=== PATIENT | female | born 1960 | race Asian ===

== ENCOUNTER 2016-11-09 06:44 | Inpatient (IN) | payer MEDICARE, MEDICAID ==
[~2016-11-09] VITALS: Ht 152.4 cm; Wt 76.2 kg
[2016-11-09] VITALS (25 sets, daily range): BP systolic 88–125; BP diastolic 43–81
[2016-11-09] MEDS ORDERED: NS 250 ML IV ONE (06:47)
[2016-11-09] MEDS ORDERED: PLAVIX75 MG ORAL ×2 (06:54→13:41)
[2016-11-09] MEDS ORDERED: ATORVASTATIN CA20 MG ORAL (06:54)
[2016-11-09] MEDS ORDERED: SENSIPAR30 MG ORAL ×2 (06:54→13:41)
[2016-11-09] MEDS ORDERED: RENVELA800 MG ORAL (06:54)
[2016-11-09] MEDS ORDERED: CARVEDILOL3.125 MG ORAL (06:54)
[2016-11-09] MEDS ORDERED: HUMALOG100 UNIT/4 SUBQ ×2 (06:54→13:41)
[2016-11-09] MEDS ORDERED: METOPROLOL TAR100 M1 ORAL (06:54)
[2016-11-09] MEDS ORDERED: NEXIUM40 MG ORAL ×2 (06:54→13:41)
[2016-11-09] MEDS ORDERED: AMBIEN10 M1 ORAL ×2 (06:54→13:41)
[2016-11-09] MEDS ORDERED: LYRICA75 M1 ORAL (06:54)
[2016-11-09] MEDS ORDERED: ASPIRIN81 MG ORAL (06:54)
[2016-11-09] MEDS ORDERED: STARLIX120 MG ORAL ×2 (06:54→13:41)
[2016-11-09] MEDS ORDERED: Morphine Sulfate 2mg/ml Inj IVP ONE ×2 (07:00→08:00)
[2016-11-09 07:38] LABS: MEAN CORPUSCULAR HEMOGLOBIN 32.4 PG (27.0-31.0); MEAN CORPUSCULAR HGB CONC 33.7 G/DL (32.0-36.0); MEAN CORPUSCULAR VOLUME 96 FL (80-99); MEAN PLATELET VOLUME 7.8 FL (6.5-10.1); PLATELET COUNT 125 K/UL (150-450); RED BLOOD COUNT 2.21 M/UL (4.20-5.40); RED CELL DISTRIBUTION WIDTH 13.4 % (11.6-14.8); WHITE BLOOD COUNT 7.9 K/UL (4.8-10.8)
[2016-11-09 07:45] LABS: ALBUMIN/GLOBULIN RATIO 1.5 (1.0-2.7); CALCIUM 8.2 mg/dL (8.6-10.2); CREATININE 4.2 mg/dL (0.5-0.9); GLOMERULAR FILTRATION RATE 10.9 mL/min (>60); POTASSIUM 3.8 mEQ/L (3.4-4.9); TOTAL PROTEIN 5.8 g/dL (6.6-8.7); TROPONIN I < 0.30 ng/mL (<=0.30)
[2016-11-09 07:56] LABS: CKMB 3.3 ng/mL (< 3.8)
[2016-11-09 08:09] LABS: BAND NEUTROPHILS % (MANUAL) 0 % (0-8); BASOPHILS % (MANUAL) 1 % (0-2); EOSINOPHILS % (MANUAL) 1 % (0-3); HYPOCHROMASIA 3+; LYMPHOCYTES % (MANUAL) 24 % (20-45); METAMYELOCYTES % 2 % (0-0); NEUTROPHILS % (MANUAL) 68 % (45-75); PLATELET ESTIMATE DECREASED; SPHEROCYTES 2+; TOTAL CELLS COUNTED 100
[2016-11-09 08:10] LABS: ANISOCYTOSIS 1+; PLATELET MORPHOLOGY NORMAL
[2016-11-09 08:28] LABS: INR 1.1 (0.9-1.1)
--- NOTE | 2016-11-09 08:29 | Emergency Room Report ---
History of Present Illness General Chief Complaint: Chest Pain Source: Patient, EMS Present Illness HPI 56-year-old female presents ED complaining of chest pain. Patient states chest pain started today during dialysis session. Patient was unable to complete dialysis. Pain is pressure-like, midsternal, 7/10, nonradiating. No other aggravating or relieving factors. Denies shortness of breath. Patient was given aspirin. EMS states they did not give nitroglycerin because BP was low. Gave IV fluid bolus. Denies fevers or chills. No other aggravating or leading factors. Denies any other associated symptoms Allergies: Coded Allergies: No Known Allergies (Unverified , 11/09/16) Patient History Past Medical History: DM, HTN, renal disease, dialysis Past Surgical History: none Pertinent Family History: none Social History: Denies: alcohol use, drug use, smoking Now: No Immunizations: UTD Reviewed Nursing Documentation: PMH: Agreed, PSxH: Agreed Nursing Documentation-PMH Hx Hypertension: Yes Hx Pacemaker: Yes Hx Diabetes: Yes Hx Dialysis: Yes - [id number] Review of Systems All Other Systems: negative except mentioned in HPI Physical Exam Vital Signs Date Time Temp Pulse Resp B/P Pulse Ox O2 Delivery O2 Flow Rate FiO2 11/09/16 06:40 97.2 83 16 88/59 100 Room Air 11/09/16 06:50 2.0 Sp02 EP Interpretation: reviewed, normal General Appearance: no apparent distress, alert, GCS 15, non-toxic Head: normocephalic, atraumatic Eyes: bilateral eye PERRL, bilateral eye normal inspection ENT: hearing grossly normal, normal pharynx, no angioedema, normal voice Neck: full range of motion, supple/symm/no masses Respiratory: chest non-tender, lungs clear, normal breath sounds, speaking full sentences Cardiovascular #1: regular rate, rhythm, no edema Cardiovascular #2: 2+ carotid (R), 2+ carotid (L), 2+ radial (R), 2+ radial (L) , 2+ dorsalis pedis (R), 2+ dorsalis pedis (L) Gastrointestinal: normal bowel sounds, non tender, soft, non-distended, no guarding, no rebound Rectal: deferred Genitourinary: normal inspection, no CVA tenderness Musculoskeletal: back normal, gait/station normal, normal range of motion, non- tender Neurologic: alert, oriented x3, responsive, motor strength/tone normal, sensory intact, speech normal Psychiatric: judgement/insight normal, memory normal, mood/affect normal, no suicidal/homicidal ideation Reflexes: 3+ bicep (R), 3+ bicep (L), 3+ tricep (R), 3+ tricep (L), 3+ knee (R) , 3+ knee (L) Skin: normal color, no rash, warm/dry, well hydrated Lymphatic: no adenopathy Medical Decision Making Diagnostic Impression: Primary Impression: ACS (acute coronary syndrome) Additional Impressions: ESRD (end stage renal disease) on dialysis Anemia Qualified Codes: D64.9 - Anemia, unspecified Labs Test 11/09/16 07:00 11/09/16 07:55 White Blood Count 7.9 K/UL (4.8-10.8) Red Blood Count 2.21 M/UL (4.20-5.40) Hemoglobin 7.2 G/DL (12.0-16.0) Hematocrit 21.2 % (37.0-47.0) Mean Corpuscular Volume 96 FL (80-99) Mean Corpuscular Hemoglobin 32.4 PG (27.0-31.0) Mean Corpuscular Hemoglobin Concent 33.7 G/DL (32.0-36.0) Red Cell Distribution Width 13.4 % (11.6-14.8) Platelet Count 125 K/UL (150-450) Mean Platelet Volume 7.8 FL (6.5-10.1) Neutrophils (%) (Auto) % (45.0-75.0) Lymphocytes (%) (Auto) % (20.0-45.0) Monocytes (%) (Auto) % (1.0-10.0) Eosinophils (%) (Auto) % (0.0-3.0) Basophils (%) (Auto) % (0.0-2.0) Differential Total Cells Counted 100 Neutrophils % (Manual) 68 % (45-75) Lymphocytes % (Manual) 24 % (20-45) Monocytes % (Manual) 4 % (1-10) Eosinophils % (Manual) 1 % (0-3) Basophils % (Manual) 1 % (0-2) Metamyelocytes % 2 % (0-0) Band Neutrophils 0 % (0-8) Platelet Estimate Decreased Platelet Morphology Normal Hypochromasia 3+ Anisocytosis 1+ Spherocytes 2+ Sodium Level 138 mEQ/L (135-145) Potassium Level 3.8 mEQ/L (3.4-4.9) Chloride Level 96 mEQ/L (98-107) Carbon Dioxide Level 23 mEQ/L (20-30) Anion Gap 19 (5-15) Blood Urea Nitrogen 80 mg/dL (7-23) Creatinine 4.2 mg/dL (0.5-0.9) Estimat Glomerular Filtration Rate 10.9 mL/min (>60) Glucose Level 207 mg/dL (74-106) Calcium Level 8.2 mg/dL (8.6-10.2) Total Bilirubin 0.5 mg/dL (0.0-1.2) Aspartate Amino Transf (AST/SGOT) 14 U/L (5-40) Alanine Aminotransferase (ALT/SGPT) 5 U/L (3-33) Alkaline Phosphatase 70 U/L (35-104) Total Creatine Kinase 76 U/L (26-140) Creatine Kinase MB 3.3 ng/mL (< 3.8) Creatine Kinase MB Relative Index 4.3 Troponin I < 0.30 ng/mL (<=0.30) Pro-B-Type Natriuretic Peptide 6173 pg/mL (0-125) Total Protein 5.8 g/dL (6.6-8.7) Albumin 3.5 g/dL (3.5-5.2) Globulin 2.3 g/dL Albumin/Globulin Ratio 1.5 (1.0-2.7) EKG Diagnostic Results Rate: normal Rhythm: other - paced rhythm ST Segments: no acute changes ASA given to the pt in ED: No - given by ms Rhythm Strip Diag. Results EP Interpretation: yes Rhythm: NSR, no PVC's, no ectopy Chest X-Ray Diagnostic Results EP Interpretation: Yes Findings: no pneumothorax, no acute cardiopulmonary disease, other - cardiomegaly.pulmonary congestion. pacemaker Number of Views: 1 Last Vital Signs Date Time Temp Pulse Resp B/P Pulse Ox O2 Delivery O2 Flow Rate FiO2 11/09/16 06:50 89 21 Nasal Cannula 2.0 11/09/16 06:44 97.2 88/59 100 Status: improved Disposition: ADMITTED INPATIENT Condition: Serious [place],SARAH M.D. Nov 09, 2016 08:29
[2016-11-09] MEDS ORDERED: Morphine Sulfate 4mg/ml Inj ONE (09:26)
--- NOTE | 2016-11-09 09:29 | Diagnostic Imaging Report ---
Indication: Chest pain Technique: One view of the chest Comparison: none Findings: There is a left chest pacemaker. There is evidence of prior CABG. The heart is mildly enlarged. There is borderline interstitial congestion. Impression: Borderline interstitial congestive changes. Correlate with clinical findings Cardiomegaly Postsurgical changes as described
[2016-11-09] MEDS ORDERED: Morphine Sulfate 4mg/ml Inj IVP ONE (09:30)
[2016-11-09] MEDS ORDERED: Miralax 17gm pkt ORAL PRN (10:15)
[2016-11-09] MEDS ORDERED: Zolpidem 5mg tab ORAL PRN (10:15)
[2016-11-09] MEDS ORDERED: Mylanta II UD 30ml ORAL PRN (10:15)
[2016-11-09] MEDS ORDERED: DuoNeb 0.5-3(2.5)mg/3ml neb HHN PRN (10:15)
[2016-11-09] MEDS ORDERED: Pantoprazole Inj IV ONE (11:15)
[2016-11-09] MEDS: Lyrica 75mg cap ORAL SCH ×2 (13:33→21:29)
[2016-11-09] MEDS ORDERED: ISOSORBIDE DINI20 M2 PO (13:41)
[2016-11-09] MEDS ORDERED: RENVELA0.8 GM ORAL (13:41)
[2016-11-09] MEDS: NovoLOG Insulin Flexpen SUBQ SCH ×3 (16:30→21:40)
--- NOTE | 2016-11-09 17:05 | Consultation ---
Consult Note Consult Note asked to eval for dialysis management- Chief Complaint: Chest Pain HPI 56-year-old female presents ED complaining of chest pain. Patient states chest pain started today during dialysis session. Patient was unable to complete dialysis. Pain is pressure-like, midsternal, 7/10, nonradiating. No other aggravating or relieving factors. Denies shortness of breath. Patient was given aspirin. EMS states they did not give nitroglycerin because BP was low. Gave IV fluid bolus. Denies fevers or chills. No other aggravating or leading factors. 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 HD as needed per orders OMARI BLOCK Nov 09, 2016 17:05
--- NOTE | 2016-11-09 18:47 | Cardiology Progress Note ---
Assessment/Plan Assessment/Plan chest pain esrd hs of tx now on hd cad s/p cabg unkown timing anemia pacmeker implatation hx obesity serial enzyme ekg saas satn bb echo [id number] Objective Last 24 Hour Vital Signs Date Time Temp Pulse Resp B/P Pulse Ox O2 Delivery O2 Flow Rate FiO2 11/09/16 18:01 97.3 77 14 125/58 100 Nasal Cannula 2.0 11/09/16 15:10 97.3 79 14 105/56 100 Nasal Cannula 2.0 11/09/16 14:50 97.3 80 12 104/57 100 Nasal Cannula 2.0 11/09/16 14:32 97.3 11/09/16 14:20 97.3 79 15 93/53 100 Nasal Cannula 2.0 11/09/16 13:50 97.4 81 15 109/61 100 Nasal Cannula 2.0 11/09/16 13:35 97.4 79 16 110/53 100 Nasal Cannula 2.0 11/09/16 13:20 97.4 79 15 108/47 100 Nasal Cannula 2.0 11/09/16 13:05 97.4 78 17 112/52 99 Nasal Cannula 2.0 11/09/16 13:00 97.3 78 20 108/64 100 Nasal Cannula 2.0 11/09/16 12:55 97.4 79 16 104/81 100 Nasal Cannula 2.0 11/09/16 12:50 97.3 79 16 107/60 100 Nasal Cannula 2.0 11/09/16 12:30 97.4 79 19 112/52 100 Nasal Cannula 2.0 11/09/16 12:00 97.3 79 18 107/60 100 Nasal Cannula 2.0 11/09/16 11:30 97.3 80 20 102/66 100 Nasal Cannula 2.0 11/09/16 11:00 97.3 82 20 116/66 100 Nasal Cannula 2.0 11/09/16 11:00 97.3 11/09/16 10:30 97.3 82 22 125/62 100 Nasal Cannula 2.0 11/09/16 10:15 97.1 83 20 109/73 100 Nasal Cannula 2.0 11/09/16 10:00 97.0 83 20 11/09/16 10:00 97.0 83 20 105/43 100 Nasal Cannula 2.0 11/09/16 09:55 97.3 81 20 99/56 100 Nasal Cannula 2.0 11/09/16 09:50 97.5 83 20 107/57 100 Nasal Cannula 2.0 11/09/16 09:45 97.7 83 17 104/66 100 Nasal Cannula 2.0 11/09/16 08:50 97.2 11/09/16 08:50 97.2 11/09/16 07:20 83 17 Nasal Cannula 2.0 11/09/16 07:20 97.3 83 17 97/63 100 Nasal Cannula 2.0 11/09/16 06:50 89 21 Nasal Cannula 2.0 11/09/16 06:44 97.2 89 21 88/59 100 Room Air 11/09/16 06:40 97.2 83 16 88/59 100 Room Air Laboratory Tests Test 11/09/16 07:00 11/09/16 07:55 White Blood Count 7.9 K/UL (4.8-10.8) Red Blood Count 2.21 M/UL (4.20-5.40) L Hemoglobin 7.2 G/DL (12.0-16.0) L Hematocrit 21.2 % (37.0-47.0) L Mean Corpuscular Volume 96 FL (80-99) Mean Corpuscular Hemoglobin 32.4 PG (27.0-31.0) H Mean Corpuscular Hemoglobin Concent 33.7 G/DL (32.0-36.0) Red Cell Distribution Width 13.4 % (11.6-14.8) Platelet Count 125 K/UL (150-450) L Mean Platelet Volume 7.8 FL (6.5-10.1) Neutrophils (%) (Auto) % (45.0-75.0) Lymphocytes (%) (Auto) % (20.0-45.0) Monocytes (%) (Auto) % (1.0-10.0) Eosinophils (%) (Auto) % (0.0-3.0) Basophils (%) (Auto) % (0.0-2.0) Differential Total Cells Counted 100 Neutrophils % (Manual) 68 % (45-75) Lymphocytes % (Manual) 24 % (20-45) Monocytes % (Manual) 4 % (1-10) Eosinophils % (Manual) 1 % (0-3) Basophils % (Manual) 1 % (0-2) Metamyelocytes % 2 % (0-0) H Band Neutrophils 0 % (0-8) Platelet Estimate Decreased L Platelet Morphology Normal Hypochromasia 3+ Anisocytosis 1+ Spherocytes 2+ Sodium Level 138 mEQ/L (135-145) Potassium Level 3.8 mEQ/L (3.4-4.9) Chloride Level 96 mEQ/L (98-107) L Carbon Dioxide Level 23 mEQ/L (20-30) Anion Gap 19 (5-15) H Blood Urea Nitrogen 80 mg/dL (7-23) H Creatinine 4.2 mg/dL (0.5-0.9) H Estimat Glomerular Filtration Rate 10.9 mL/min (>60) Glucose Level 207 mg/dL (74-106) H Calcium Level 8.2 mg/dL (8.6-10.2) L Total Bilirubin 0.5 mg/dL (0.0-1.2) Aspartate Amino Transf (AST/SGOT) 14 U/L (5-40) Alanine Aminotransferase (ALT/SGPT) 5 U/L (3-33) Alkaline Phosphatase 70 U/L (35-104) Total Creatine Kinase 76 U/L (26-140) Creatine Kinase MB 3.3 ng/mL (< 3.8) Creatine Kinase MB Relative Index 4.3 Troponin I < 0.30 ng/mL (<=0.30) Pro-B-Type Natriuretic Peptide 6173 pg/mL (0-125) H Total Protein 5.8 g/dL (6.6-8.7) L Albumin 3.5 g/dL (3.5-5.2) Globulin 2.3 g/dL Albumin/Globulin Ratio 1.5 (1.0-2.7) Prothrombin Time 11.0 SEC (9.30-11.50) Prothromb Time International Ratio 1.1 (0.9-1.1) Activated Partial Thromboplast Time 25 SEC (23-33) DREW HUSAIN Nov 09, 2016 18:47
[2016-11-09] MEDS: Metoprolol 50mg tab ORAL SCH (21:00)
[2016-11-09] MEDS ORDERED: Heparin 5000 units/ml inj SUBQ SCH (21:00)
[2016-11-09 21:13] LABS: TROPONIN I 3.74 ng/mL (<=0.30)
[2016-11-09] MEDS: Atorvastatin 20mg tab ORAL SCH (21:28)
[2016-11-09] MEDS: Pantoprazole Inj IVP SCH (21:28)
[2016-11-09] MEDS ORDERED: Heparin 5000 units/ml inj IV ONE (21:45)
[2016-11-09] MEDS ORDERED: Heparin 25,000u/D5W 500ml 500 ML IV SCH (21:45)
[2016-11-09 22:10] LABS: BASOPHILS % (AUTO) 0.7 % (0.0-2.0); EOSINOPHILS % (AUTO) 1.1 % (0.0-3.0); LYMPHOCYTES % (AUTO) 18.3 % (20.0-45.0); MEAN CORPUSCULAR HEMOGLOBIN 32.1 PG (27.0-31.0); MEAN CORPUSCULAR HGB CONC 33.8 G/DL (32.0-36.0); MEAN CORPUSCULAR VOLUME 95 FL (80-99); MEAN PLATELET VOLUME 7.6 FL (6.5-10.1); MONOCYTES % (AUTO) 7.3 % (1.0-10.0); NEUTROPHILS % (AUTO) 72.5 % (45.0-75.0); PLATELET COUNT 114 K/UL (150-450); RED BLOOD COUNT 2.73 M/UL (4.20-5.40); RED CELL DISTRIBUTION WIDTH 13.5 % (11.6-14.8); WHITE BLOOD COUNT 8.1 K/UL (4.8-10.8)
--- NOTE | 2016-11-09 22:26 | Consultation ---
History of Present Illness General Date patient seen: Nov 09, 2016 Chief Complaint: Chest Pain Referring physician: Dr. Snyder Reason for Consultation: Chest pain Present Illness HPI 56-year-old female with hx of ESRF, on HD, presented to ER by EMS complaining of chest pain started during dialysis session. Patient was unable to complete dialysis. Pain is pressure-like, midsternal, 7/10, nonradiating. No other aggravating or relieving factors. Denies shortness of breath. Patient was given aspirin. EMS states they did not give nitroglycerin because BP was low. Gave IV fluid bolus. Denies fevers or chills. she is admitted to telemetry for further management Allergies: Coded Allergies: No Known Allergies (Unverified , 11/09/16) Medication History Scheduled Aspirin* (Aspirin*), 81 MG ORAL DAILY, (Reported) Atorvastatin Calcium* (Atorvastatin Calcium*), 20 MG ORAL BEDTIME, (Reported) Carvedilol* (Carvedilol*), 3.125 MG ORAL EVERY 12 HOURS, (Reported) Cinacalcet* (Sensipar*), 15 MG ORAL DAILY, (Reported) Cinacalcet* (Sensipar*), 15 MG ORAL DAILY, (Reported) Clopidogrel Bisulfate* (Plavix*), 75 MG ORAL DAILY, (Reported) Clopidogrel Bisulfate* (Plavix*), 75 MG ORAL DAILY, (Reported) Esomeprazole Magnesium (Nexium), 40 MG ORAL DAILY, (Reported) Esomeprazole Magnesium (Nexium), 40 MG ORAL DAILY, (Reported) Metoprolol Tartrate* (Metoprolol Tartrate*), 100 MG ORAL DAILY, (Reported) Nateglinide (Starlix), 120 MG ORAL THREE TIMES A DAY, (Reported) Nateglinide (Starlix), 120 MG ORAL THREE TIMES A DAY, (Reported) Pregabalin* (Lyrica*), 75 MG ORAL BID, (Reported) Sevelamer Carbonate (Renvela), 1,600 MG ORAL THREE TIMES A DAY, (Reported) Sevelamer Carbonate* (Renvela*), 800 MG ORAL THREE TIMES A DAY, (Reported) Scheduled PRN Zolpidem Tartrate* (Ambien*), 10 MG ORAL HS PRN for Insomnia, (Reported) Zolpidem Tartrate* (Ambien*), 10 MG ORAL HS PRN for Insomnia, (Reported) Miscellaneous Medications Insulin Lispro (Humalog), 0 SUBQ, (Reported) Insulin Lispro (Humalog), 0 SUBQ, (Reported) Isosorbide Dinitrate (Isosorbide Dinitrate), 30 MG PO, (Reported) Patient History Healthcare decision maker MILDRED KIM Resuscitation status Advanced Directive on File No Past Medical/Surgical History Past Medical/Surgical History: (1) Hypertension (2) CAD (coronary artery disease) (3) Diabetes mellitus (4) ESRD (end stage renal disease) on dialysis Review of Systems All Other Systems: negative except mentioned in HPI Physical Exam General Appearance: WD/WN Lines, tubes and drains: peripheral, dialysis access HEENT: normocephalic Neck: non-tender, normal alignment Respiratory/Chest: chest wall non-tender, lungs clear Cardiovascular/Chest: normal peripheral pulses, normal rate Genitourinary/Rectal: normal genital exam Last 24 Hour Vital Signs Date Time Temp Pulse Resp B/P Pulse Ox O2 Delivery O2 Flow Rate FiO2 11/09/16 21:00 81 118/61 11/09/16 20:00 97.6 81 21 118/61 96 Room Air 11/09/16 19:02 97.3 77 14 125/58 100 Nasal Cannula 2.0 11/09/16 18:01 97.3 77 14 125/58 100 Nasal Cannula 2.0 11/09/16 15:10 97.3 79 14 105/56 100 Nasal Cannula 2.0 11/09/16 14:50 97.3 80 12 104/57 100 Nasal Cannula 2.0 11/09/16 14:32 97.3 11/09/16 14:20 97.3 79 15 93/53 100 Nasal Cannula 2.0 11/09/16 13:50 97.4 81 15 109/61 100 Nasal Cannula 2.0 11/09/16 13:35 97.4 79 16 110/53 100 Nasal Cannula 2.0 11/09/16 13:20 97.4 79 15 108/47 100 Nasal Cannula 2.0 11/09/16 13:05 97.4 78 17 112/52 99 Nasal Cannula 2.0 11/09/16 13:00 97.3 78 20 108/64 100 Nasal Cannula 2.0 11/09/16 12:55 97.4 79 16 104/81 100 Nasal Cannula 2.0 11/09/16 12:50 97.3 79 16 107/60 100 Nasal Cannula 2.0 11/09/16 12:30 97.4 79 19 112/52 100 Nasal Cannula 2.0 11/09/16 12:00 97.3 79 18 107/60 100 Nasal Cannula 2.0 11/09/16 11:30 97.3 80 20 102/66 100 Nasal Cannula 2.0 11/09/16 11:00 97.3 82 20 116/66 100 Nasal Cannula 2.0 11/09/16 11:00 97.3 11/09/16 10:30 97.3 82 22 125/62 100 Nasal Cannula 2.0 11/09/16 10:15 97.1 83 20 109/73 100 Nasal Cannula 2.0 11/09/16 10:00 97.0 83 20 11/09/16 10:00 97.0 83 20 105/43 100 Nasal Cannula 2.0 11/09/16 09:55 97.3 81 20 99/56 100 Nasal Cannula 2.0 11/09/16 09:50 97.5 83 20 107/57 100 Nasal Cannula 2.0 11/09/16 09:45 97.7 83 17 104/66 100 Nasal Cannula 2.0 11/09/16 08:50 97.2 11/09/16 08:50 97.2 11/09/16 07:20 83 17 Nasal Cannula 2.0 11/09/16 07:20 97.3 83 17 97/63 100 Nasal Cannula 2.0 11/09/16 06:50 89 21 Nasal Cannula 2.0 11/09/16 06:44 97.2 89 21 88/59 100 Room Air 11/09/16 06:40 97.2 83 16 88/59 100 Room Air Laboratory Tests Test 11/09/16 07:00 11/09/16 07:55 11/09/16 20:37 11/09/16 22:00 White Blood Count 7.9 K/UL (4.8-10.8) 8.1 K/UL (4.8-10.8) Red Blood Count 2.21 M/UL (4.20-5.40) L 2.73 M/UL (4.20-5.40) L Hemoglobin 7.2 G/DL (12.0-16.0) L 8.8 G/DL (12.0-16.0) L Hematocrit 21.2 % (37.0-47.0) L 26.0 % (37.0-47.0) L Mean Corpuscular Volume 96 FL (80-99) 95 FL (80-99) Mean Corpuscular Hemoglobin 32.4 PG (27.0-31.0) H 32.1 PG (27.0-31.0) H Mean Corpuscular Hemoglobin Concent 33.7 G/DL (32.0-36.0) 33.8 G/DL (32.0-36.0) Red Cell Distribution Width 13.4 % (11.6-14.8) 13.5 % (11.6-14.8) Platelet Count 125 K/UL (150-450) L 114 K/UL (150-450) L Mean Platelet Volume 7.8 FL (6.5-10.1) 7.6 FL (6.5-10.1) Neutrophils (%) (Auto) % (45.0-75.0) 72.5 % (45.0-75.0) Lymphocytes (%) (Auto) % (20.0-45.0) 18.3 % (20.0-45.0) L Monocytes (%) (Auto) % (1.0-10.0) 7.3 % (1.0-10.0) Eosinophils (%) (Auto) % (0.0-3.0) 1.1 % (0.0-3.0) Basophils (%) (Auto) % (0.0-2.0) 0.7 % (0.0-2.0) Differential Total Cells Counted 100 Neutrophils % (Manual) 68 % (45-75) Lymphocytes % (Manual) 24 % (20-45) Monocytes % (Manual) 4 % (1-10) Eosinophils % (Manual) 1 % (0-3) Basophils % (Manual) 1 % (0-2) Metamyelocytes % 2 % (0-0) H Band Neutrophils 0 % (0-8) Platelet Estimate Decreased L Platelet Morphology Normal Hypochromasia 3+ Anisocytosis 1+ Spherocytes 2+ Sodium Level 138 mEQ/L (135-145) Potassium Level 3.8 mEQ/L (3.4-4.9) Chloride Level 96 mEQ/L (98-107) L Carbon Dioxide Level 23 mEQ/L (20-30) Anion Gap 19 (5-15) H Blood Urea Nitrogen 80 mg/dL (7-23) H Creatinine 4.2 mg/dL (0.5-0.9) H Estimat Glomerular Filtration Rate 10.9 mL/min (>60) Glucose Level 207 mg/dL (74-106) H Calcium Level 8.2 mg/dL (8.6-10.2) L Total Bilirubin 0.5 mg/dL (0.0-1.2) Aspartate Amino Transf (AST/SGOT) 14 U/L (5-40) Alanine Aminotransferase (ALT/SGPT) 5 U/L (3-33) Alkaline Phosphatase 70 U/L (35-104) Total Creatine Kinase 76 U/L (26-140) Creatine Kinase MB 3.3 ng/mL (< 3.8) Creatine Kinase MB Relative Index 4.3 Troponin I < 0.30 ng/mL (<=0.30) 3.74 ng/mL (<=0.30) *H Pro-B-Type Natriuretic Peptide 6173 pg/mL (0-125) H Total Protein 5.8 g/dL (6.6-8.7) L Albumin 3.5 g/dL (3.5-5.2) Globulin 2.3 g/dL Albumin/Globulin Ratio 1.5 (1.0-2.7) Prothrombin Time 11.0 SEC (9.30-11.50) Prothromb Time International Ratio 1.1 (0.9-1.1) Activated Partial Thromboplast Time 25 SEC (23-33) Pending Height (Feet): 5 Weight (Pounds): 170 Medications Current Medications Medications (Trade) Dose Ordered Sig/Yarelis Route PRN Reason Start Time Stop Time Status Last Admin Dose Admin Acetaminophen (Tylenol) 650 mg Q4H PRN ORAL fever 11/09/16 10:15 12/09/16 10:14 Albuterol/ Ipratropium (DuoNeb 0.5-3(2.5)mg/3ml) 3 ml Q6HRT PRN HHN dyspnea 11/09/16 10:15 11/14/16 10:14 Aspirin (ASA) 81 mg DAILY ORAL 11/10/16 09:00 12/10/16 08:59 Atorvastatin Calcium 20 mg 20 mg BEDTIME ORAL 11/09/16 21:00 12/09/16 20:59 11/09/16 21:28 Cinacalcet (Sensipar) 15 mg DAILY ORAL 11/10/16 09:00 12/10/16 08:59 UNV Clonidine HCl (Catapres) 0.1 mg Q4H PRN ORAL For High Blood Pressure 11/09/16 10:15 12/09/16 10:14 Clopidogrel Bisulfate (Plavix) 75 mg DAILY ORAL 11/10/16 11:30 12/10/16 11:29 Dextrose (Dextrose 50%) STAT PRN IV Hypoglycemia 11/09/16 10:15 12/09/16 10:14 Heparin Sodium/ Dextrose (Heparin) 500 ml @ 18.507 mls/ hr adjust per protocol IV 11/09/16 21:45 12/09/16 21:44 Insulin Aspart (NovoLOG) BEFORE MEALS AND HS SUBQ 11/09/16 12:30 12/09/16 12:29 11/09/16 21:40 Metoprolol Tartrate (Lopressor) 50 mg Q12HR ORAL 11/09/16 21:00 12/09/16 20:59 Morphine Sulfate (Morphine Sulfate) 1 mg EVERY 4 HOURS PRN IVP For Pain 11/09/16 10:15 11/16/16 10:14 Nateglinide (Starlix) 120 mg TIAC ORAL 11/09/16 11:30 12/09/16 11:29 11/09/16 13:32 Ondansetron HCl (Zofran) 4 mg Q6H PRN IVP Nausea & Vomiting 11/09/16 10:15 12/09/16 10:14 Pantoprazole (Protonix) 40 mg Q12HR IVP 11/09/16 21:00 12/09/16 20:59 11/09/16 21:28 Polyethylene Glycol (Miralax) 17 gm HSPRN PRN ORAL Constipation 11/09/16 10:15 12/09/16 10:14 Pregabalin (Lyrica) 75 mg BID ORAL 11/09/16 11:30 12/09/16 11:29 11/09/16 21:29 Sevelamer Carbonate (Renvela) 1,600 mg THREE TIMES A DAY ORAL 11/09/16 13:00 12/09/16 12:59 11/09/16 13:56 Zolpidem Tartrate (Ambien) 5 mg HSPRN PRN ORAL Insomnia 11/09/16 10:15 12/09/16 10:14 Assessment/Plan Problem List: (1) ACS (acute coronary syndrome) ICD Codes: I24.9 - Acute ischemic heart disease, unspecified SNOMED: 725151319 (2) CAD (coronary artery disease) ICD Codes: I25.10 - Atherosclerotic heart disease of [place] coronary artery without angina pectoris SNOMED: 85589969 (3) Kidney transplant recipient ICD Codes: Z94.0 - Kidney transplant status SNOMED: 866175391 (4) ESRD (end stage renal disease) on dialysis ICD Codes: N18.6 - End stage renal disease; Z99.2 - Dependence on renal dialysis SNOMED: 465453425 (5) Diabetes mellitus ICD Codes: E11.9 - Type 2 diabetes mellitus without complications SNOMED: 04825452 Qualifiers: Assessment/Plan serial ekg, troponin, echo cardio evaluation sliding scale diabetic diet dvt prophylaxis EMILY LYONS Nov 09, 2016 22:26
--- NOTE | 2016-11-09 23:58 | Consultation ---
DATE OF CONSULTATION: 11/09/2016 CARDIOLOGY CONSULTATION CONSULTING PHYSICIAN: Josue Cain M.D. ATTENDING PHYSICIAN: David Snyder M.D. REASON FOR EVALUATION: Management of chest pain. HISTORY OF PRESENT ILLNESS: This is female, [place] descent. The patient has a history of multiple medical problems as delineated below. The patient was at a dialysis center. Apparently dialysis, then started complaining of chest pain. No shortness of breath. No loss of consciousness and no trauma. The patient was given some aspirin, but nitroglycerin was withheld because of the patient's low blood pressure, was transferred to the emergency room at [facility] she has been now admitted the patient unfortunately is somewhat of a poor historian. At this point, the patient not able to provide any meaningful history whatsoever. PAST MEDICAL HISTORY: Obtained from the chart is positive for history of end-stage renal disease, on hemodialysis; hypertension; diabetes mellitus; coronary artery disease; anemia respiratory failure with possible pulmonary edema previously; history of kidney transplant previously; history of systemic hypertension with a prior history of myocardial infarction. It is really not clear if the patient has had any kind of surgery except for the chart indicated renal transplant although there is a surgical scar in the sternum, may be a cardiac surgery of some kind. The patient's records available here does not show any allergies to medications. SOCIAL HISTORY: No smoking or alcohol. She apparently lives at home. REVIEW OF SYSTEMS: Unable to obtain. PHYSICAL EXAMINATION: GENERAL: a middle-aged female in no apparent respiratory distress. HEENT: Unremarkable. She is obese. NECK: Her neck is supple. No jugular venous distention. LUNGS: Clear to auscultation and percussion. CARDIAC: Regular rate and rhythm. No heaves, thrills, gallops, or rubs noted. ABDOMEN: Soft, obese, positive bowel sounds. Nontender. EXTREMITIES: There is no edema. She has a shunt in the right arm. NEUROLOGIC: She is drowsy but arousable and responsive, but not really communicative. LABORATORY VALUES: White count 7.9, hemoglobin 7.2, and platelet count of 125,000, 2 metamyelocytes are noted, 24 lymphocytes, and 68 neutrophils. Sodium is 138, potassium 3.8, chloride 96, bicarbonate 23, BUN of 80, creatinine 4.2, and glucose of 207. Calcium is 8.2. Liver function tests are normal. Troponin less than 0.3. ProBNP of 6100. Albumin of 3.5. Coags, INR is 1.1 and PTT of 25. IMAGING: She did have a chest x-ray performed in the emergency room that shows there is left chest pacemaker. There is evidence of prior CABG and heart is mildly enlarged. There is borderline interstitial congestion. Electrocardiogram shows sinus with V pacing. ASSESSMENT AND PLAN: 1. Chest pain, per report. 2. Coronary artery disease history with a history of prior coronary artery bypass grafting. 3. History of permanent pacemaker implantation. 4. End-stage renal disease, on hemodialysis, status post renal transplant. 5. History of hypertension. 6. History of congestive heart failure previously. 7. Anemia. 8. Obesity. This patient was seen in cardiac consultation. The patient is somewhat of a poor historian. The patient does not endorse any chest pain at the present time. Her chart indicates she has had a history of coronary artery disease previously, and she obviously has had some sort of a surgical procedure on her sternum which is consistent with a bypass surgery that she apparently has not had back in 2008 where records from [facility] available in her chart. Not known any relationship prior to that admission when she had a bypass surgery. Nevertheless, she looks pretty comfortable. She should have serial enzymes and EKGs checked, and we will see if she has got any significant wall motion abnormalities on her echocardiogram. She may require further testing because of her status as a poor historian and cannot clarify the status of pain. Josue Cain M.D. DR: DELANEY JOB#: [id number] CC:
[2016-11-10] VITALS (7 sets, daily range): BP systolic 99–123; BP diastolic 53–64
[2016-11-10] MEDS: Morphine Sulfate 2mg/ml Inj IVP PRN ×2 (04:36→22:14)
[2016-11-10 05:09] LABS: BASOPHILS % (AUTO) 0.3 % (0.0-2.0); EOSINOPHILS % (AUTO) 1.1 % (0.0-3.0); LYMPHOCYTES % (AUTO) 12.7 % (20.0-45.0); MEAN CORPUSCULAR HGB CONC 34.8 G/DL (32.0-36.0); MEAN CORPUSCULAR VOLUME 95 FL (80-99); MEAN PLATELET VOLUME 7.1 FL (6.5-10.1); PLATELET COUNT 130 K/UL (150-450); RED BLOOD COUNT 2.89 M/UL (4.20-5.40); RED CELL DISTRIBUTION WIDTH 13.7 % (11.6-14.8); WHITE BLOOD COUNT 11.7 K/UL (4.8-10.8)
[2016-11-10 05:31] LABS: HEMOGLOBIN A1C 6.2 % (< 6.0)
[2016-11-10] MEDS: Heparin 25,000u/D5W 500ml 500 ML IV SCH ×2 (05:33→22:01)
[2016-11-10 05:37] LABS: ALBUMIN/GLOBULIN RATIO 1.2 (1.0-2.7); CALCIUM 8.4 mg/dL (8.6-10.2); CHOLESTEROL/HDL RATIO 5.8 (3.3-4.4); CREATININE 6.2 mg/dL (0.5-0.9); POTASSIUM 4.7 mEQ/L (3.4-4.9); TOTAL PROTEIN 6.2 g/dL (6.6-8.7)
[2016-11-10 05:50] LABS: THYROID STIMULATING HORMONE 5.15 uIU/mL (0.300-4.500)
[2016-11-10] MEDS ORDERED: Heparin 5000 units/ml inj IV ONE (06:00)
[2016-11-10 06:17] LABS: TROPONIN I 2.02 ng/mL (<=0.30)
[2016-11-10] MEDS: NovoLOG Insulin Flexpen SUBQ SCH ×4 (06:30→22:02)
[2016-11-10 07:06] LABS: CRP QUANT 1.1 mg/dL (< 0.5); MAGNESIUM 2.2 mg/dL (1.7-2.5); PHOSPHORUS 5.6 mg/dL (2.5-4.8); URIC ACID 8.3 mg/dL (3.0-7.5)
[2016-11-10 07:28] LABS: FERRITIN 739 ng/mL (13-150)
[2016-11-10 07:50] LABS: HEMOLYSIS 58; IRON 248 ug/dL (37-145); TOTAL IRON BINDING CAPACITY 280 ug/dL (250-400)
[2016-11-10] MEDS: Aspirin Baby 81mg ORAL SCH (08:33)
[2016-11-10] MEDS: Pantoprazole Inj IVP SCH ×2 (08:34→22:01)
[2016-11-10] MEDS: Metoprolol 50mg tab ORAL SCH ×2 (08:36→21:00)
[2016-11-10] MEDS: Lyrica 75mg cap ORAL SCH ×2 (08:36→18:46)
[2016-11-10] MEDS ORDERED: Sensipar 30mg Tab ORAL SCH (09:00)
--- NOTE | 2016-11-10 12:44 | General Progress Note ---
Assessment/Plan Status: unchanged Assessment/Plan Status: ESRD- ACS- with elevated troponin Severe Anemia- transfused DM- HTN- Plan; Optimize cardiac status- echo Transfuse? HD in am per orders Subjective ROS Limited/Unobtainable: No Constitutional: Reports: malaise, other - no Cp, weakness Allergies: Coded Allergies: No Known Allergies (Unverified , 11/09/16) Objective Last 24 Hour Vital Signs Date Time Temp Pulse Resp B/P Pulse Ox O2 Delivery O2 Flow Rate FiO2 11/10/16 11:36 97.5 74 18 109/57 98 Nasal Cannula 2.0 11/10/16 08:36 75 106/64 11/10/16 08:13 97.3 75 18 106/64 97 Nasal Cannula 2.0 11/10/16 08:00 74 11/10/16 07:28 76 18 Room Air 11/10/16 04:00 79 11/10/16 04:00 97.7 80 19 106/61 98 Nasal Cannula 2.0 11/10/16 00:12 108 18 Room Air 11/10/16 00:00 79 11/10/16 00:00 97.2 81 19 123/64 96 Room Air 11/09/16 21:00 81 118/61 11/09/16 20:00 97.6 81 21 118/61 96 Room Air 11/09/16 19:02 97.3 77 14 125/58 100 Nasal Cannula 2.0 11/09/16 18:01 97.3 77 14 125/58 100 Nasal Cannula 2.0 11/09/16 15:10 97.3 79 14 105/56 100 Nasal Cannula 2.0 11/09/16 14:50 97.3 80 12 104/57 100 Nasal Cannula 2.0 11/09/16 14:32 97.3 11/09/16 14:20 97.3 79 15 93/53 100 Nasal Cannula 2.0 11/09/16 13:50 97.4 81 15 109/61 100 Nasal Cannula 2.0 11/09/16 13:35 97.4 79 16 110/53 100 Nasal Cannula 2.0 11/09/16 13:20 97.4 79 15 108/47 100 Nasal Cannula 2.0 11/09/16 13:05 97.4 78 17 112/52 99 Nasal Cannula 2.0 3/16/17 13:00 97.3 78 20 108/64 100 Nasal Cannula 2.0 11/09/16 12:55 97.4 79 16 104/81 100 Nasal Cannula 2.0 11/09/16 12:50 97.3 79 16 107/60 100 Nasal Cannula 2.0 Intake and Output 11/09/16 11/10/16 19:00 07:00 Intake Total 250 ml 271.59 ml Balance 250 ml 271.59 ml Intake Oral 0 ml 120 ml IV Total 250 ml 151.59 ml # Voids 1 Laboratory Tests 11/09/16 20:37: Troponin I 3.74*H 11/09/16 22:00: White Blood Count 8.1, Red Blood Count 2.73L, Hemoglobin 8.8L, Hematocrit 26.0L , Mean Corpuscular Volume 95, Mean Corpuscular Hemoglobin 32.1H, Mean Corpuscular Hemoglobin Concent 33.8, Red Cell Distribution Width 13.5, Platelet Count 114L, Mean Platelet Volume 7.6, Neutrophils (%) (Auto) 72.5, Lymphocytes ( %) (Auto) 18.3L, Monocytes (%) (Auto) 7.3, Eosinophils (%) (Auto) 1.1, Basophils (%) (Auto) 0.7, Activated Partial Thromboplast Time 25 11/10/16 04:25: Troponin I 2.02*H, White Blood Count 11.7H, Red Blood Count 2.89L, Hemoglobin 9.6L, Hematocrit 27.5L, Mean Corpuscular Volume 95, Mean Corpuscular Hemoglobin 33.0H, Mean Corpuscular Hemoglobin Concent 34.8, Red Cell Distribution Width 13.7, Platelet Count 130L, Mean Platelet Volume 7.1, Neutrophils (%) (Auto) 81.0H, Lymphocytes (%) (Auto) 12.7L, Monocytes (%) (Auto) 5.0, Eosinophils (%) ( Auto) 1.1, Basophils (%) (Auto) 0.3, Activated Partial Thromboplast Time 56H, Sodium Level 135, Potassium Level 4.7, Chloride Level 95L, Carbon Dioxide Level 18L, Anion Gap 22H, Blood Urea Nitrogen 101H, Creatinine 6.2H, Estimat Glomerular Filtration Rate 7.0, Glucose Level 195H, Hemoglobin A1c 6.2H, Uric Acid 8.3H, Calcium Level 8.4L, Phosphorus Level 5.6H, Magnesium Level 2.2, Iron Level 248H, Total Iron Binding Capacity 280, Percent Iron Saturation 89H, Unsaturated Iron Binding 32L, Ferritin 739H, Total Bilirubin 0.5, Gamma Glutamyl Transpeptidase 50H, Aspartate Amino Transf (AST/SGOT) 17, Alanine Aminotransferase (ALT/SGPT) 5, Alkaline Phosphatase 68, Total Creatine Kinase 133, C-Reactive Protein, Quantitative 1.1H, Pro-B-Type Natriuretic Peptide 7125H , Total Protein 6.2L, Albumin 3.5, Globulin 2.7, Albumin/Globulin Ratio 1.2, Triglycerides Level 509H, Cholesterol Level 139, LDL Cholesterol 13L, HDL Cholesterol 24, Cholesterol/HDL Ratio 5.8H, Vitamin B12 Level 280, Folate [ Pending], Thyroid Stimulating Hormone (TSH) 5.150H 11/10/16 11:15: Activated Partial Thromboplast Time 82H Height (Feet): 5 Height (Inches): 0.00 Weight (Pounds): 170 General Appearance: no apparent distress Cardiovascular: normal rate Respiratory/Chest: decreased breath sounds Abdomen: soft Edema: 1+ Arm (L), 1+ Arm (R), 1+ Leg (L), 1+ Leg (R), 1+ Pedal (L), 1+ Pedal ( R), 1+ Generalized Objective other PE not changed OMARI BLOCK Nov 10, 2016 12:44
[2016-11-10] MEDS: Vitamin B12 1000mcg/ml Inj SUBQ SCH (13:41)
--- NOTE | 2016-11-10 15:22 | History & Physical ---
History and Physical History & Physicial Dictated for Int Med-Dr Snyder no. [id number]. ENRIKE STARKEY Nov 10, 2016 15:22
--- NOTE | 2016-11-10 18:53 | Cardiology Progress Note ---
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 [facility] closed [id number] Subjective Cardiovascular: Denies: chest pain, lightheadedness, palpitations Respiratory: Denies: shortness of breath Gastrointestinal/Abdominal: Denies: abdomen distended Genitourinary: Denies: burning Objective Last 24 Hour Vital Signs Date Time Temp Pulse Resp B/P Pulse Ox O2 Delivery O2 Flow Rate FiO2 11/10/16 16:00 97.7 75 20 107/56 94 Nasal Cannula 2.0 11/10/16 12:00 71 11/10/16 11:36 97.5 74 18 109/57 98 Nasal Cannula 2.0 11/10/16 08:36 75 106/64 11/10/16 08:13 97.3 75 18 106/64 97 Nasal Cannula 2.0 11/10/16 08:00 74 11/10/16 07:28 76 18 Room Air 11/10/16 04:00 79 11/10/16 04:00 97.7 80 19 106/61 98 Nasal Cannula 2.0 11/10/16 00:12 108 18 Room Air 11/10/16 00:00 79 11/10/16 00:00 97.2 81 19 123/64 96 Room Air 11/09/16 21:00 81 118/61 11/09/16 20:00 97.6 81 21 118/61 96 Room Air 11/09/16 19:02 97.3 77 14 125/58 100 Nasal Cannula 2.0 General Appearance: no apparent distress Cardiovascular: normal rate, regular rhythm Respiratory/Chest: lungs clear, normal breath sounds Abdomen: normal bowel sounds, non tender, soft Extremities: no swelling Intake and Output 11/09/16 11/10/16 19:00 07:00 Intake Total 250 ml 271.59 ml Balance 250 ml 271.59 ml Intake Oral 0 ml 120 ml IV Total 250 ml 151.59 ml # Voids 1 Laboratory Tests Test 11/09/16 20:37 11/09/16 22:00 11/10/16 04:25 11/10/16 11:15 Troponin I 3.74 ng/mL (<=0.30) *H 2.02 ng/mL (<=0.30) *H White Blood Count 8.1 K/UL (4.8-10.8) 11.7 K/UL (4.8-10.8) H Red Blood Count 2.73 M/UL (4.20-5.40) L 2.89 M/UL (4.20-5.40) L Hemoglobin 8.8 G/DL (12.0-16.0) L 9.6 G/DL (12.0-16.0) L Hematocrit 26.0 % (37.0-47.0) L 27.5 % (37.0-47.0) L Mean Corpuscular Volume 95 FL (80-99) 95 FL (80-99) Mean Corpuscular Hemoglobin 32.1 PG (27.0-31.0) H 33.0 PG (27.0-31.0) H Mean Corpuscular Hemoglobin Concent 33.8 G/DL (32.0-36.0) 34.8 G/DL (32.0-36.0) Red Cell Distribution Width 13.5 % (11.6-14.8) 13.7 % (11.6-14.8) Platelet Count 114 K/UL (150-450) L 130 K/UL (150-450) L Mean Platelet Volume 7.6 FL (6.5-10.1) 7.1 FL (6.5-10.1) Neutrophils (%) (Auto) 72.5 % (45.0-75.0) 81.0 % (45.0-75.0) H Lymphocytes (%) (Auto) 18.3 % (20.0-45.0) L 12.7 % (20.0-45.0) L Monocytes (%) (Auto) 7.3 % (1.0-10.0) 5.0 % (1.0-10.0) Eosinophils (%) (Auto) 1.1 % (0.0-3.0) 1.1 % (0.0-3.0) Basophils (%) (Auto) 0.7 % (0.0-2.0) 0.3 % (0.0-2.0) Activated Partial Thromboplast Time 25 SEC (23-33) 56 SEC (23-33) H 82 SEC (23-33) H Sodium Level 135 mEQ/L (135-145) Potassium Level 4.7 mEQ/L (3.4-4.9) Chloride Level 95 mEQ/L (98-107) L Carbon Dioxide Level 18 mEQ/L (20-30) L Anion Gap 22 (5-15) H Blood Urea Nitrogen 101 mg/dL (7-23) H Creatinine 6.2 mg/dL (0.5-0.9) H Estimat Glomerular Filtration Rate 7.0 mL/min (>60) Glucose Level 195 mg/dL (74-106) H Hemoglobin A1c 6.2 % (< 6.0) H Uric Acid 8.3 mg/dL (3.0-7.5) H Calcium Level 8.4 mg/dL (8.6-10.2) L Phosphorus Level 5.6 mg/dL (2.5-4.8) H Magnesium Level 2.2 mg/dL (1.7-2.5) Iron Level 248 ug/dL (37-145) H Total Iron Binding Capacity 280 ug/dL (250-400) Percent Iron Saturation 89 % (15-50) H Unsaturated Iron Binding 32 ug/dL (112-346) L Ferritin 739 ng/mL (13-150) H Total Bilirubin 0.5 mg/dL (0.0-1.2) Gamma Glutamyl Transpeptidase 50 U/L (5-36) H Aspartate Amino Transf (AST/SGOT) 17 U/L (5-40) Alanine Aminotransferase (ALT/SGPT) 5 U/L (3-33) Alkaline Phosphatase 68 U/L (35-104) Total Creatine Kinase 133 U/L (26-140) C-Reactive Protein, Quantitative 1.1 mg/dL (< 0.5) H Pro-B-Type Natriuretic Peptide 7125 pg/mL (0-125) H Total Protein 6.2 g/dL (6.6-8.7) L Albumin 3.5 g/dL (3.5-5.2) Globulin 2.7 g/dL Albumin/Globulin Ratio 1.2 (1.0-2.7) Triglycerides Level 509 mg/dL (< 150) H Cholesterol Level 139 mg/dL (< 200) LDL Cholesterol 13 mg/dL (60-99) L HDL Cholesterol 24 mg/dL (> 60) Cholesterol/HDL Ratio 5.8 (3.3-4.4) H Vitamin B12 Level 280 pg/mL (211-946) Folate Pending Thyroid Stimulating Hormone (TSH) 5.150 uIU/mL (0.300-4.500) DREW HUSAIN Nov 10, 2016 18:52
[2016-11-10] MEDS: Atorvastatin 20mg tab ORAL SCH (22:09)
--- NOTE | 2016-11-10 22:28 | History and Physical Report ---
DATE OF ADMISSION: 11/09/2016 CHIEF COMPLAINT: The patient is a 56-year-old female, presents with complaint of chest pain. HISTORY OF PRESENT ILLNESS: Began on 11/09/2016. The patient began to experience chest pressure. It was unrelieved with rest. The patient states the chest pain was in the midsternal region. The patient denies radiation to the jaw or to the arm. The patient presented to [facility] emergency room. The patient was found to have a troponin level of 3.74. The patient was admitted for elevated troponin to rule out acute myocardial infarction. PAST MEDICAL HISTORY: Significant for, 1. Coronary artery disease, status post coronary artery bypass graft. 2. Diabetes type 2. 3. Hypertension. 4. End-stage renal disease, on hemodialysis every Sunday, , and Sunday. 5. Anemia of chronic disease. PAST SURGICAL HISTORY: Significant for, 1. Coronary artery bypass graft. 2. History of kidney transplant. CURRENT MEDICATIONS: 1. Aspirin 81 mg one tablet p.o. daily. 2. Atorvastatin 20 mg one tablet p.o. daily. 3. Coreg 3.125 mg one tablet p.o. daily. 4. Sensipar 15 mg one tablet p.o. daily. 5. Cinacalcet 30 mg one tablet p.o. daily. 6. Plavix 75 mg one tablet p.o. daily. 7. Nexium 40 mg one tablet p.o. daily. 8. Lispro insulin sliding scale. 9. Isosorbide dinitrate 20 mg one tablet p.o. daily. 10. Metoprolol 100 mg one tablet p.o. daily. 11. Starlix 120 mg one tablet p.o. three times daily. 12. Lyrica 75 mg one tablet p.o. twice daily. 13. Renvela 800 mg two tablets p.o. three times daily. 14. Ambien 10 mg one tablet p.o. nightly p.r.n. ALLERGIES: No known drug allergies. SOCIAL HISTORY: She is and disabled. The patient denies tobacco or alcohol use. REVIEW OF SYSTEMS: Constitutional: The patient denies weight loss or weight gain. The patient denies fevers or chills. HEENT: The patient denies ear or throat pain. The patient denies headache. Cardiovascular: The patient complains of chest pressure as above. The patient denies palpitations. Chest: The patient denies wheezes or shortness of breath. Abdomen: The patient denies nausea, vomiting, or constipation. Genitourinary: The patient denies dysuria or increased frequency of urination. Neuromuscular: The patient denies seizures or generalized weakness. PHYSICAL EXAMINATION: VITAL SIGNS: Temperature 97.2 degrees, respirations 18, pulse 75, and blood pressure 106/64. GENERAL: The patient is well-developed and well-nourished female, who is in moderate distress. HEENT: Eyes, pupils are equal and responsive to light and accommodation. Extraocular movements are intact. NECK: Supple without lymphadenopathy. CHEST: Lungs are clear to auscultation bilaterally without wheezes or rales. CARDIOVASCULAR: Regular rhythm and rate. S1 and S2 normal without murmurs, rubs, or gallops. ABDOMEN: Soft, nontender, and nondistended. Positive bowel sounds. No evidence of hepatosplenomegaly. Currently, no rebound or guarding. EXTREMITIES: Negative for clubbing, cyanosis, or edema. RECTAL/GENITAL: Refused. NEUROLOGIC: Cranial nerves II through XII are grossly intact without focal deficits. Motor strength is 5/5 bilaterally. Deep tendon reflexes 2+ plantar. LABORATORY STUDIES: WBC 7.9, hemoglobin 7.2, hematocrit 21.2, and platelets 125,000. Sodium 138, potassium 3.8, chloride 96, CO2 23, BUN elevated at 80, creatinine elevated at 4.2, and glucose elevated 207. BNP elevated at 6173. Serum troponin level elevated at 3.74. EKG demonstrated normal sinus rhythm with ventricular pacing. ASSESSMENT: This is a 56-year-old female, 1. Acute myocardial infarction. 2. Elevated troponin. 3. Anemia of chronic disease. 4. End-stage renal disease. 5. Coronary artery disease. 6. Diabetes. 7. Hypertension. 8. History of kidney transplant. TREATMENT: 1. Coronary artery disease/acute myocardial infarction. A Cardiology consultation was obtained with Dr. Josue Cain. We will follow recommendations of Cardiology. The patient has a history of prior coronary artery bypass graft. The patient may require percutaneous transluminal coronary angioplasty during this hospitalization. 2. End-stage renal disease. A Nephrology consultation with Dr. Miguel Poon. The patient will undergo dialysis every Sunday, , and Saturday per Nephrology. 3. Diabetes. The patient has been placed empirically on a NovoLog sliding scale. Accu-Cheks will be performed before meals and at bedtime. 4. Hypertension. Continue Coreg as above. The patient has been started on Lopressor 50 mg one tablet p.o. twice daily. We will follow recommendation of Cardiology at this point. 5. History of kidney transplant. Wilber Knutson M.D. DR: Martínez JOB#: [id number] CC:
--- NOTE | 2016-11-10 22:49 | Pulmonology Progress Note ---
Assessment/Plan Problems: (1) ACS (acute coronary syndrome) (2) CAD (coronary artery disease) (3) Diabetes mellitus (4) ESRD (end stage renal disease) on dialysis (5) Anemia Subjective Allergies: Coded Allergies: No Known Allergies (Unverified , 11/09/16) Objective Last 24 Hour Vital Signs Date Time Temp Pulse Resp B/P Pulse Ox O2 Delivery O2 Flow Rate FiO2 11/10/16 22:06 80 22 Nasal Cannula 2.0 28 11/10/16 21:00 79 99/53 11/10/16 20:00 97 Nasal Cannula 2.0 28 11/10/16 20:00 Nasal Cannula 2.0 28 11/10/16 20:00 97.8 79 22 99/53 97 Nasal Cannula 2.0 11/10/16 16:00 97.7 75 20 107/56 94 Nasal Cannula 2.0 11/10/16 12:00 71 11/10/16 11:36 97.5 74 18 109/57 98 Nasal Cannula 2.0 11/10/16 08:36 75 106/64 11/10/16 08:13 97.3 75 18 106/64 97 Nasal Cannula 2.0 11/10/16 08:00 74 11/10/16 07:28 76 18 Room Air 11/10/16 04:00 79 11/10/16 04:00 97.7 80 19 106/61 98 Nasal Cannula 2.0 11/10/16 00:12 108 18 Room Air 11/10/16 00:00 79 11/10/16 00:00 97.2 81 19 123/64 96 Room Air Intake and Output 11/09/16 11/10/16 19:00 07:00 Intake Total 250 ml 271.59 ml Balance 250 ml 271.59 ml Intake Oral 0 ml 120 ml IV Total 250 ml 151.59 ml # Voids 1 Laboratory Tests 11/10/16 04:25: White Blood Count 11.7H, Red Blood Count 2.89L, Hemoglobin 9.6L, Hematocrit 27.5L, Mean Corpuscular Volume 95, Mean Corpuscular Hemoglobin 33.0H, Mean Corpuscular Hemoglobin Concent 34.8, Red Cell Distribution Width 13.7, Platelet Count 130L, Mean Platelet Volume 7.1, Neutrophils (%) (Auto) 81.0H, Lymphocytes (%) (Auto) 12.7L, Monocytes (%) (Auto) 5.0, Eosinophils (%) (Auto) 1.1, Basophils (%) (Auto) 0.3, Activated Partial Thromboplast Time 56H, Sodium Level 135, Potassium Level 4.7, Chloride Level 95L, Carbon Dioxide Level 18L, Anion Gap 22H, Blood Urea Nitrogen 101H, Creatinine 6.2H, Estimat Glomerular Filtration Rate 7.0, Glucose Level 195H, Hemoglobin A1c 6.2H, Uric Acid 8.3H, Calcium Level 8.4L, Phosphorus Level 5.6H, Magnesium Level 2.2, Iron Level 248H , Total Iron Binding Capacity 280, Percent Iron Saturation 89H, Unsaturated Iron Binding 32L, Ferritin 739H, Total Bilirubin 0.5, Gamma Glutamyl Transpeptidase 50H, Aspartate Amino Transf (AST/SGOT) 17, Alanine Aminotransferase (ALT/SGPT) 5, Alkaline Phosphatase 68, Total Creatine Kinase 133, Troponin I 2.02*H, C-Reactive Protein, Quantitative 1.1H, Pro-B-Type Natriuretic Peptide 7125H, Total Protein 6.2L, Albumin 3.5, Globulin 2.7, Albumin/Globulin Ratio 1.2, Triglycerides Level 509H, Cholesterol Level 139, LDL Cholesterol 13L, HDL Cholesterol 24, Cholesterol/HDL Ratio 5.8H, Vitamin B12 Level 280, Folate [Pending], Thyroid Stimulating Hormone (TSH) 5.150H 11/10/16 11:15: Activated Partial Thromboplast Time 82H Current Medications Medications (Trade) Dose Ordered Sig/Yarelis Route PRN Reason Start Time Stop Time Status Last Admin Dose Admin Acetaminophen (Tylenol) 650 mg Q4H PRN ORAL fever 11/09/16 10:15 12/09/16 10:14 Albuterol/ Ipratropium (DuoNeb 0.5-3(2.5)mg/3ml) 3 ml Q6HRT PRN HHN dyspnea 11/09/16 10:15 11/14/16 10:14 Aspirin (ASA) 81 mg DAILY ORAL 11/10/16 09:00 12/10/16 08:59 11/10/16 08:33 Atorvastatin Calcium 20 mg 20 mg BEDTIME ORAL 11/09/16 21:00 12/09/16 20:59 11/10/16 22:09 Cinacalcet (Sensipar) 15 mg DAILY ORAL 11/10/16 09:00 12/10/16 08:59 UNV Clonidine HCl (Catapres) 0.1 mg Q4H PRN ORAL For High Blood Pressure 11/09/16 10:15 12/09/16 10:14 Clopidogrel Bisulfate (Plavix) 75 mg DAILY ORAL 11/10/16 11:30 12/10/16 11:29 11/10/16 12:05 Cyanocobalamin (Vitamin B12) 1,000 mcg DAILY SUBQ 11/10/16 14:00 11/12/16 09:01 11/10/16 13:41 Dextrose (Dextrose 50%) STAT PRN IV Hypoglycemia 11/09/16 10:15 12/09/16 10:14 Heparin Sodium/ Dextrose (Heparin) 500 ml @ 21.591 mls/ hr adjust per protocol IV 11/10/16 05:20 12/09/16 21:44 11/10/16 22:01 Insulin Aspart (NovoLOG) BEFORE MEALS AND HS SUBQ 11/09/16 12:30 12/09/16 12:29 11/10/16 22:02 Metoprolol Tartrate (Lopressor) 50 mg Q12HR ORAL 11/09/16 21:00 12/09/16 20:59 Morphine Sulfate (Morphine Sulfate) 1 mg EVERY 4 HOURS PRN IVP For Pain 11/09/16 10:15 11/16/16 10:14 11/10/16 22:14 Nateglinide (Starlix) 120 mg TIAC ORAL 11/09/16 11:30 12/09/16 11:29 11/10/16 16:51 Ondansetron HCl (Zofran) 4 mg Q6H PRN IVP Nausea & Vomiting 11/09/16 10:15 12/09/16 10:14 11/10/16 16:52 Pantoprazole (Protonix) 40 mg Q12HR IVP 11/09/16 21:00 12/09/16 20:59 11/10/16 22:01 Polyethylene Glycol (Miralax) 17 gm HSPRN PRN ORAL Constipation 11/09/16 10:15 12/09/16 10:14 Pregabalin (Lyrica) 75 mg BID ORAL 11/09/16 11:30 12/09/16 11:29 11/10/16 18:46 Sevelamer Carbonate (Renvela) 1,600 mg THREE TIMES A DAY ORAL 11/09/16 13:00 12/09/16 12:59 11/10/16 18:47 Zolpidem Tartrate (Ambien) 5 mg HSPRN PRN ORAL Insomnia 11/09/16 10:15 12/09/16 10:14 EMILY LYONS Nov 10, 2016 22:49
[2016-11-11] VITALS (7 sets, daily range): BP systolic 106–137; BP diastolic 54–77
[2016-11-11 04:58] LABS: BASOPHILS % (AUTO) 0.3 % (0.0-2.0); EOSINOPHILS % (AUTO) 1.1 % (0.0-3.0); LYMPHOCYTES % (AUTO) 16.2 % (20.0-45.0); MEAN CORPUSCULAR HEMOGLOBIN 32.9 PG (27.0-31.0); MEAN CORPUSCULAR HGB CONC 34.7 G/DL (32.0-36.0); MEAN CORPUSCULAR VOLUME 95 FL (80-99); MEAN PLATELET VOLUME 7.1 FL (6.5-10.1); MONOCYTES % (AUTO) 5.7 % (1.0-10.0); NEUTROPHILS % (AUTO) 76.7 % (45.0-75.0); PLATELET COUNT 124 K/UL (150-450); RED BLOOD COUNT 2.59 M/UL (4.20-5.40); RED CELL DISTRIBUTION WIDTH 13.3 % (11.6-14.8); WHITE BLOOD COUNT 10.3 K/UL (4.8-10.8)
[2016-11-11] MEDS ORDERED: Heparin 25,000u/D5W 500ml 500 ML IV SCH ×3 (05:36→21:30)
[2016-11-11 05:42] LABS: TROPONIN I 1.21 ng/mL (<=0.30)
[2016-11-11 05:57] LABS: ALBUMIN/GLOBULIN RATIO 1.9 (1.0-2.7); CALCIUM 8.3 mg/dL (8.6-10.2); CREATININE 7.3 mg/dL (0.5-0.9); CRP QUANT 2.8 mg/dL (< 0.5); GLOMERULAR FILTRATION RATE 5.8 mL/min (>60); PHOSPHORUS 6.7 mg/dL (2.5-4.8); POTASSIUM 4.8 mEQ/L (3.4-4.9); TOTAL PROTEIN 5.8 g/dL (6.6-8.7); URIC ACID 9.9 mg/dL (3.0-7.5)
[2016-11-11] MEDS ORDERED: Heparin 5000 units/ml inj IV ONE ×2 (06:00→21:30)
[2016-11-11] MEDS: NovoLOG Insulin Flexpen SUBQ SCH ×4 (06:26→21:39)
[2016-11-11] MEDS: Morphine Sulfate 2mg/ml Inj IVP PRN ×2 (06:29→13:11)
[2016-11-11] MEDS: Aspirin Baby 81mg ORAL SCH (08:12)
[2016-11-11] MEDS: Vitamin B12 1000mcg/ml Inj SUBQ SCH (08:13)
[2016-11-11] MEDS: Pantoprazole Inj IVP SCH ×2 (08:13→21:35)
[2016-11-11] MEDS: Lyrica 75mg cap ORAL SCH ×2 (08:13→17:38)
[2016-11-11] MEDS: Metoprolol 50mg tab ORAL SCH ×2 (08:14→21:00)
--- NOTE | 2016-11-11 10:38 | General Progress Note ---
Assessment/Plan Status: stable Assessment/Plan Status: ESRD- ACS- with elevated troponin Severe Anemia- transfused DM- HTN- Plan; Optimize cardiac status- echo ej fx 45% Transfused HD today per orders Subjective ROS Limited/Unobtainable: No Allergies: Coded Allergies: No Known Allergies (Unverified , 11/09/16) Objective Last 24 Hour Vital Signs Date Time Temp Pulse Resp B/P Pulse Ox O2 Delivery O2 Flow Rate FiO2 11/11/16 08:14 76 106/54 11/11/16 08:00 97.5 76 18 106/54 96 Nasal Cannula 2.0 11/11/16 07:38 93 Nasal Cannula 1.0 24 11/11/16 07:38 79 20 Nasal Cannula 1.0 24 11/11/16 07:38 Nasal Cannula 1.0 24 11/11/16 04:00 98.1 78 16 107/55 93 Nasal Cannula 2.0 11/11/16 04:00 77 11/11/16 00:00 75 11/11/16 00:00 97.0 60 16 127/77 93 Room Air 11/10/16 22:06 80 22 Nasal Cannula 2.0 28 11/10/16 21:00 79 99/53 11/10/16 20:00 97 Nasal Cannula 2.0 28 11/10/16 20:00 Nasal Cannula 2.0 28 11/10/16 20:00 97.8 79 22 99/53 97 Nasal Cannula 2.0 11/10/16 20:00 74 11/10/16 16:00 70 11/10/16 16:00 97.7 75 20 107/56 94 Nasal Cannula 2.0 11/10/16 12:00 71 11/10/16 11:36 97.5 74 18 109/57 98 Nasal Cannula 2.0 Intake and Output 11/10/16 11/11/16 19:00 07:00 Intake Total 709.08 ml 499.092 ml Balance 709.08 ml 499.092 ml Intake Oral 450 ml 240 ml IV Total 259.08 ml 259.092 ml # Voids 2 Laboratory Tests 11/10/16 11:15: Activated Partial Thromboplast Time 82H 11/11/16 04:15: Activated Partial Thromboplast Time 50H, White Blood Count 10.3, Red Blood Count 2.59L, Hemoglobin 8.5L, Hematocrit 24.5L, Mean Corpuscular Volume 95, Mean Corpuscular Hemoglobin 32.9H, Mean Corpuscular Hemoglobin Concent 34.7, Red Cell Distribution Width 13.3, Platelet Count 124L, Mean Platelet Volume 7.1 , Neutrophils (%) (Auto) 76.7H, Lymphocytes (%) (Auto) 16.2L, Monocytes (%) ( Auto) 5.7, Eosinophils (%) (Auto) 1.1, Basophils (%) (Auto) 0.3, Sodium Level 131L, Potassium Level 4.8, Chloride Level 90L, Carbon Dioxide Level 17L, Anion Gap 24H, Blood Urea Nitrogen 112H, Creatinine 7.3H, Estimat Glomerular Filtration Rate 5.8, Glucose Level 139H, Uric Acid 9.9H, Calcium Level 8.3L, Phosphorus Level 6.7H, Total Bilirubin 0.6, Aspartate Amino Transf (AST/SGOT) 14 , Alanine Aminotransferase (ALT/SGPT) 5, Alkaline Phosphatase 69, Troponin I 1.21*H, C-Reactive Protein, Quantitative 2.8H, Pro-B-Type Natriuretic Peptide 7918H, Total Protein 5.8L, Albumin 3.8, Globulin 2.0, Albumin/Globulin Ratio 1.9 Height (Feet): 5 Height (Inches): 0.00 Weight (Pounds): 170 General Appearance: no apparent distress Objective other PE not changed OMARI BLOCK Nov 11, 2016 10:38
--- NOTE | 2016-11-11 13:11 | Pulmonology Progress Note ---
Assessment/Plan Assessment/Plan ASSESSMENT NSTEMI ESRD , on HD anemia of chronic disease DM HTN CAD pacemaker anemia s/p blood transfusion obesity moderate pulmonary HTN moderate TR hx of kidney transplant elevated TSH PLAN OF CARE tele cardio follows troponin started down trending need cath awaiting for transfer when bed available to [facility] continue ASA, Plavix, statin heparin gtt BB , Nitro paste ECF with pacing O2 HHN prn ECHO with EF 45-50%, RVSP of 45 c/w moderate pulmonary HTN CXR + CM, no acute findings Lipid panel with elevated TG 509 substance abuse counselor on cardiac low fat diet , after stabilization recommend to add [facility] or similar HD as per neprho, monitor renal parameters, lytes, monitor HH, transfuse prn likely anemia of chronic renal disease elevated TSH, check free T4 and T3 GI prophylaxis case discussed and evaluated by supervising physician Subjective Allergies: Coded Allergies: No Known Allergies (Unverified , 11/09/16) Subjective the patient had chest pain earlier, on the right side, radiating to right shoulder and neck. improved after SL NTG she denies nausea, diaphoresis, palpitations troponin down trending Objective Last 24 Hour Vital Signs Date Time Temp Pulse Resp B/P Pulse Ox O2 Delivery O2 Flow Rate FiO2 11/11/16 12:16 97.5 82 18 137/70 94 Nasal Cannula 2.0 11/11/16 12:00 85 11/11/16 09:50 Nasal Cannula 2.0 11/11/16 08:14 76 106/54 11/11/16 08:00 97.5 76 18 106/54 96 Nasal Cannula 2.0 11/11/16 08:00 80 11/11/16 07:38 93 Nasal Cannula 1.0 24 11/11/16 07:38 79 20 Nasal Cannula 1.0 24 11/11/16 07:38 Nasal Cannula 1.0 24 11/11/16 04:00 98.1 78 16 107/55 93 Nasal Cannula 2.0 11/11/16 04:00 77 11/11/16 00:00 75 11/11/16 00:00 97.0 60 16 127/77 93 Room Air 11/10/16 22:06 80 22 Nasal Cannula 2.0 28 11/10/16 21:00 79 99/53 11/10/16 20:00 97 Nasal Cannula 2.0 28 11/10/16 20:00 Nasal Cannula 2.0 28 11/10/16 20:00 97.8 79 22 99/53 97 Nasal Cannula 2.0 11/10/16 20:00 74 11/10/16 16:00 70 11/10/16 16:00 97.7 75 20 107/56 94 Nasal Cannula 2.0 Intake and Output 11/10/16 11/11/16 19:00 07:00 Intake Total 709.08 ml 499.092 ml Balance 709.08 ml 499.092 ml Intake Oral 450 ml 240 ml IV Total 259.08 ml 259.092 ml # Voids 2 Objective General Appearance: no apparent distress Cardiovascular: normal rate, regular rhythm, tele SR with 1 st degree AV block ,, bundle branch Respiratory/Chest: lungs clear, normal breath sounds Abdomen: normal bowel sounds, non tender, soft Extremities: no swelling, RUE AV shunt, in use for HD currently Microbiology Date/Time Source Procedure Growth Status 11/09/16 09:00 Nasal Nares MRSA Culture - Final NO METHICILLIN RESISTANT STAPH AUREUS... Complete 11/09/16 09:00 Rectum VRE Culture - Final NO VANCOMYCIN RESISTANT ENTEROCOCCUS ... Complete Laboratory Tests 11/11/16 04:15: White Blood Count 10.3, Red Blood Count 2.59L, Hemoglobin 8.5L, Hematocrit 24.5L , Mean Corpuscular Volume 95, Mean Corpuscular Hemoglobin 32.9H, Mean Corpuscular Hemoglobin Concent 34.7, Red Cell Distribution Width 13.3, Platelet Count 124L, Mean Platelet Volume 7.1, Neutrophils (%) (Auto) 76.7H, Lymphocytes (%) (Auto) 16.2L, Monocytes (%) (Auto) 5.7, Eosinophils (%) (Auto) 1.1, Basophils (%) (Auto) 0.3, Activated Partial Thromboplast Time 50H, Sodium Level 131L, Potassium Level 4.8, Chloride Level 90L, Carbon Dioxide Level 17L, Anion Gap 24H, Blood Urea Nitrogen 112H, Creatinine 7.3H, Estimat Glomerular Filtration Rate 5.8, Glucose Level 139H, Uric Acid 9.9H, Calcium Level 8.3L, Phosphorus Level 6.7H, Total Bilirubin 0.6, Aspartate Amino Transf (AST/SGOT) 14 , Alanine Aminotransferase (ALT/SGPT) 5, Alkaline Phosphatase 69, Troponin I 1.21*H, C-Reactive Protein, Quantitative 2.8H, Pro-B-Type Natriuretic Peptide 7918H, Total Protein 5.8L, Albumin 3.8, Globulin 2.0, Albumin/Globulin Ratio 1.9 11/11/16 12:15: Activated Partial Thromboplast Time [Pending] Current Medications Medications (Trade) Dose Ordered Sig/Yarelis Route PRN Reason Start Time Stop Time Status Last Admin Dose Admin Acetaminophen (Tylenol) 650 mg Q4H PRN ORAL fever 11/09/16 10:15 12/09/16 10:14 Albuterol/ Ipratropium (DuoNeb 0.5-3(2.5)mg/3ml) 3 ml Q6HRT PRN HHN dyspnea 11/09/16 10:15 11/14/16 10:14 Aspirin (ASA) 81 mg DAILY ORAL 11/10/16 09:00 12/10/16 08:59 11/11/16 08:12 Atorvastatin Calcium (Lipitor) 20 mg BEDTIME ORAL 11/09/16 21:00 12/09/16 20:59 11/10/16 22:09 Cinacalcet (Sensipar) 15 mg DAILY ORAL 11/10/16 09:00 12/10/16 08:59 UNV Clonidine HCl (Catapres) 0.1 mg Q4H PRN ORAL For High Blood Pressure 11/09/16 10:15 12/09/16 10:14 Clopidogrel Bisulfate (Plavix) 75 mg DAILY ORAL 11/10/16 11:30 12/10/16 11:29 11/11/16 08:12 Cyanocobalamin 1000 mcg 1,000 mcg DAILY SUBQ 11/10/16 14:00 11/12/16 09:01 11/11/16 08:13 Dextrose (Dextrose 50%) STAT PRN IV Hypoglycemia 11/09/16 10:15 12/09/16 10:14 Heparin Sodium/ Dextrose (Heparin) 500 ml @ 27.76 mls/ hr adjust per protocol IV 11/11/16 05:36 12/09/16 21:44 11/11/16 06:26 Insulin Aspart (NovoLOG) BEFORE MEALS AND HS SUBQ 11/09/16 12:30 12/09/16 12:29 11/11/16 13:09 Metoprolol Tartrate (Lopressor) 50 mg Q12HR ORAL 11/09/16 21:00 12/09/16 20:59 Morphine Sulfate (Morphine Sulfate) 1 mg EVERY 4 HOURS PRN IVP For Pain 11/09/16 10:15 11/16/16 10:14 11/11/16 06:29 Nateglinide (Starlix) 120 mg TIAC ORAL 11/09/16 11:30 12/09/16 11:29 11/11/16 13:05 Ondansetron HCl (Zofran) 4 mg Q6H PRN IVP Nausea & Vomiting 11/09/16 10:15 12/09/16 10:14 11/10/16 16:52 Pantoprazole (Protonix) 40 mg Q12HR IVP 11/09/16 21:00 12/09/16 20:59 11/11/16 08:13 Polyethylene Glycol (Miralax) 17 gm HSPRN PRN ORAL Constipation 11/09/16 10:15 12/09/16 10:14 Pregabalin (Lyrica) 75 mg BID ORAL 11/09/16 11:30 12/09/16 11:29 11/11/16 08:13 Sevelamer Carbonate (Renvela) 2,400 mg THREE TIMES A DAY ORAL 11/11/16 13:00 12/11/16 12:59 Zolpidem Tartrate (Ambien) 5 mg HSPRN PRN ORAL Insomnia 11/09/16 10:15 12/09/16 10:14 [facility] Nov 11, 2016 13:11
[2016-11-11] MEDS: Nitroglycerin Subl 0.4mg tab (Bottle Of 25) SL PRN ×3 (14:31→16:33)
--- NOTE | 2016-11-11 15:18 | Cardiology Progress Note ---
Assessment/Plan Assessment/Plan chest pain elevated troponin non interpretable ECG due to underlying LBBB history of heart surgery, based on CXRpatient is unable to provide history will add nitropaste noted echo report patient does not have isgns of endocarditis, no fever, no elevated WBC probably will need cath Subjective Subjective the patient had chest pain earlier, on the right side of her chest, radiatin to right shoulder and neck. after Sl nitroglycerin pain improved, and now is 2/10 she denies nausea, diaphoresis Objective Last 24 Hour Vital Signs Date Time Temp Pulse Resp B/P Pulse Ox O2 Delivery O2 Flow Rate FiO2 11/11/16 14:41 86 114/60 11/11/16 14:36 120/65 11/11/16 14:31 126/60 11/11/16 13:00 Nasal Cannula 2.0 11/11/16 12:16 97.5 82 18 137/70 94 Nasal Cannula 2.0 11/11/16 12:00 85 11/11/16 09:50 Nasal Cannula 2.0 11/11/16 08:14 76 106/54 11/11/16 08:00 97.5 76 18 106/54 96 Nasal Cannula 2.0 11/11/16 08:00 80 11/11/16 07:38 93 Nasal Cannula 1.0 24 11/11/16 07:38 79 20 Nasal Cannula 1.0 24 11/11/16 07:38 Nasal Cannula 1.0 24 11/11/16 04:00 98.1 78 16 107/55 93 Nasal Cannula 2.0 11/11/16 04:00 77 11/11/16 00:00 75 11/11/16 00:00 97.0 60 16 127/77 93 Room Air 11/10/16 22:06 80 22 Nasal Cannula 2.0 28 11/10/16 21:00 79 99/53 11/10/16 20:00 97 Nasal Cannula 2.0 28 11/10/16 20:00 Nasal Cannula 2.0 28 11/10/16 20:00 97.8 79 22 99/53 97 Nasal Cannula 2.0 11/10/16 20:00 74 11/10/16 16:00 70 11/10/16 16:00 97.7 75 20 107/56 94 Nasal Cannula 2.0 General Appearance: other - uncomfortable becuase of pain EENT: PERRL/EOMI Neck: supple Rhythm: NSR - ventricular pacing Cardiovascular: normal rate Respiratory/Chest: normal breath sounds Abdomen: soft Extremities: other - dialysis fistula on right wrist Neurologic: oriented x 3 Intake and Output 11/10/16 11/11/16 19:00 07:00 Intake Total 709.08 ml 499.092 ml Balance 709.08 ml 499.092 ml Intake Oral 450 ml 240 ml IV Total 259.08 ml 259.092 ml # Voids 2 Laboratory Tests Test 11/11/16 04:15 11/11/16 12:15 White Blood Count 10.3 K/UL (4.8-10.8) Red Blood Count 2.59 M/UL (4.20-5.40) L Hemoglobin 8.5 G/DL (12.0-16.0) L Hematocrit 24.5 % (37.0-47.0) L Mean Corpuscular Volume 95 FL (80-99) Mean Corpuscular Hemoglobin 32.9 PG (27.0-31.0) H Mean Corpuscular Hemoglobin Concent 34.7 G/DL (32.0-36.0) Red Cell Distribution Width 13.3 % (11.6-14.8) Platelet Count 124 K/UL (150-450) L Mean Platelet Volume 7.1 FL (6.5-10.1) Neutrophils (%) (Auto) 76.7 % (45.0-75.0) H Lymphocytes (%) (Auto) 16.2 % (20.0-45.0) L Monocytes (%) (Auto) 5.7 % (1.0-10.0) Eosinophils (%) (Auto) 1.1 % (0.0-3.0) Basophils (%) (Auto) 0.3 % (0.0-2.0) Activated Partial Thromboplast Time 50 SEC (23-33) H 124 SEC (23-33) H Sodium Level 131 mEQ/L (135-145) L Potassium Level 4.8 mEQ/L (3.4-4.9) Chloride Level 90 mEQ/L (98-107) L Carbon Dioxide Level 17 mEQ/L (20-30) L Anion Gap 24 (5-15) H Blood Urea Nitrogen 112 mg/dL (7-23) H Creatinine 7.3 mg/dL (0.5-0.9) H Estimat Glomerular Filtration Rate 5.8 mL/min (>60) Glucose Level 139 mg/dL (74-106) H Uric Acid 9.9 mg/dL (3.0-7.5) H Calcium Level 8.3 mg/dL (8.6-10.2) L Phosphorus Level 6.7 mg/dL (2.5-4.8) H Total Bilirubin 0.6 mg/dL (0.0-1.2) Aspartate Amino Transf (AST/SGOT) 14 U/L (5-40) Alanine Aminotransferase (ALT/SGPT) 5 U/L (3-33) Alkaline Phosphatase 69 U/L (35-104) Troponin I 1.21 ng/mL (<=0.30) *H C-Reactive Protein, Quantitative 2.8 mg/dL (< 0.5) H Pro-B-Type Natriuretic Peptide 7918 pg/mL (0-125) H Total Protein 5.8 g/dL (6.6-8.7) L Albumin 3.8 g/dL (3.5-5.2) Globulin 2.0 g/dL Albumin/Globulin Ratio 1.9 (1.0-2.7) Microbiology Date/Time Source Procedure Growth Status 11/09/16 09:00 Nasal Nares MRSA Culture - Final NO METHICILLIN RESISTANT STAPH AUREUS... Complete 11/09/16 09:00 Rectum VRE Culture - Final NO VANCOMYCIN RESISTANT ENTEROCOCCUS ... Complete JUANJO MATT Nov 11, 2016 15:18
--- NOTE | 2016-11-11 16:31 | Internal Med Progress Note ---
Subjective Date of Service: Nov 11, 2016 Physician Name Enrike Starkey Attending Physician David Snyder MD Current Medications Medications (Trade) Dose Ordered Sig/Yarelis Route PRN Reason Start Time Stop Time Status Last Admin Dose Admin Acetaminophen (Tylenol) 650 mg Q4H PRN ORAL fever 11/09/16 10:15 12/09/16 10:14 Albuterol/ Ipratropium (DuoNeb 0.5-3(2.5)mg/3ml) 3 ml Q6HRT PRN HHN dyspnea 11/09/16 10:15 11/14/16 10:14 Aspirin (ASA) 81 mg DAILY ORAL 11/10/16 09:00 12/10/16 08:59 11/11/16 08:12 Atorvastatin Calcium (Lipitor) 20 mg BEDTIME ORAL 11/09/16 21:00 12/09/16 20:59 11/10/16 22:09 Cinacalcet (Sensipar) 15 mg DAILY ORAL 11/10/16 09:00 12/10/16 08:59 UNV Clonidine HCl (Catapres) 0.1 mg Q4H PRN ORAL For High Blood Pressure 11/09/16 10:15 12/09/16 10:14 Clopidogrel Bisulfate (Plavix) 75 mg DAILY ORAL 11/10/16 11:30 12/10/16 11:29 11/11/16 08:12 Cyanocobalamin (Vitamin B12) 1,000 mcg DAILY SUBQ 11/10/16 14:00 11/12/16 09:01 11/11/16 08:13 Dextrose (Dextrose 50%) STAT PRN IV Hypoglycemia 11/09/16 10:15 12/09/16 10:14 Heparin Sodium/ Dextrose (Heparin) 500 ml @ 23.133 mls/ hr adjust per protocol IV 11/11/16 14:05 12/11/16 14:04 11/11/16 14:13 Insulin Aspart (NovoLOG) BEFORE MEALS AND HS SUBQ 11/09/16 12:30 12/09/16 12:29 11/11/16 13:09 Metoprolol Tartrate (Lopressor) 50 mg Q12HR ORAL 11/09/16 21:00 12/09/16 20:59 Morphine Sulfate (Morphine Sulfate) 1 mg EVERY 4 HOURS PRN IVP For Pain 3/16/17 10:15 11/16/16 10:14 11/11/16 13:11 Nateglinide (Starlix) 120 mg TIAC ORAL 11/09/16 11:30 12/09/16 11:29 11/11/16 13:05 Nitroglycerin (Nitro-Bid) 1 inch TID@0600,1200,1800 TOPIC 11/11/16 18:00 12/11/16 17:59 Nitroglycerin (Ntg) 0.4 mg Q5M PRN SL Prn Chest Pain 11/11/16 14:30 12/11/16 14:29 11/11/16 14:36 Ondansetron HCl (Zofran) 4 mg Q6H PRN IVP Nausea & Vomiting 11/09/16 10:15 12/09/16 10:14 11/10/16 16:52 Pantoprazole (Protonix) 40 mg Q12HR IVP 11/09/16 21:00 12/09/16 20:59 11/11/16 08:13 Polyethylene Glycol (Miralax) 17 gm HSPRN PRN ORAL Constipation 11/09/16 10:15 12/09/16 10:14 Pregabalin (Lyrica) 75 mg BID ORAL 11/09/16 11:30 12/09/16 11:29 11/11/16 08:13 Sevelamer Carbonate 2400 mg 2,400 mg THREE TIMES A DAY ORAL 11/11/16 13:00 12/11/16 12:59 11/11/16 13:31 Zolpidem Tartrate (Ambien) 5 mg HSPRN PRN ORAL Insomnia 11/09/16 10:15 12/09/16 10:14 Allergies: Coded Allergies: No Known Allergies (Unverified , 11/09/16) ROS Limited/Unobtainable: Yes Subjective 56 YO f admitted with Chest pain. Now elevated troponin. Cover for Int Ever-Dr Snyder. Objective Last Vital Signs Date Time Temp Pulse Resp B/P Pulse Ox O2 Delivery O2 Flow Rate FiO2 11/11/16 14:41 86 114/60 11/11/16 13:00 Nasal Cannula 2.0 11/11/16 12:16 97.5 18 94 11/11/16 07:38 24 General Appearance: WD/WN, no apparent distress EENT: PERRL/EOMI, normal ENT inspection Neck: non-tender, normal alignment, supple, normal inspection Cardiovascular: normal peripheral pulses, regular rhythm, no gallop/murmur, no JVD Respiratory/Chest: chest wall non-tender, lungs clear, normal breath sounds, no respiratory distress, no accessory muscle use Abdomen: normal bowel sounds, non tender, soft, no organomegaly, no mass 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 grossly normal, no motor/sensory deficits Skin: normal pigmentation, warm/dry Laboratory Tests Test 11/11/16 04:15 11/11/16 12:15 White Blood Count 10.3 K/UL (4.8-10.8) Red Blood Count 2.59 M/UL (4.20-5.40) L Hemoglobin 8.5 G/DL (12.0-16.0) L Hematocrit 24.5 % (37.0-47.0) L Mean Corpuscular Volume 95 FL (80-99) Mean Corpuscular Hemoglobin 32.9 PG (27.0-31.0) H Mean Corpuscular Hemoglobin Concent 34.7 G/DL (32.0-36.0) Red Cell Distribution Width 13.3 % (11.6-14.8) Platelet Count 124 K/UL (150-450) L Mean Platelet Volume 7.1 FL (6.5-10.1) Neutrophils (%) (Auto) 76.7 % (45.0-75.0) H Lymphocytes (%) (Auto) 16.2 % (20.0-45.0) L Monocytes (%) (Auto) 5.7 % (1.0-10.0) Eosinophils (%) (Auto) 1.1 % (0.0-3.0) Basophils (%) (Auto) 0.3 % (0.0-2.0) Activated Partial Thromboplast Time 50 SEC (23-33) H 124 SEC (23-33) H Sodium Level 131 mEQ/L (135-145) L Potassium Level 4.8 mEQ/L (3.4-4.9) Chloride Level 90 mEQ/L (98-107) L Carbon Dioxide Level 17 mEQ/L (20-30) L Anion Gap 24 (5-15) H Blood Urea Nitrogen 112 mg/dL (7-23) H Creatinine 7.3 mg/dL (0.5-0.9) H Estimat Glomerular Filtration Rate 5.8 mL/min (>60) Glucose Level 139 mg/dL (74-106) H Uric Acid 9.9 mg/dL (3.0-7.5) H Calcium Level 8.3 mg/dL (8.6-10.2) L Phosphorus Level 6.7 mg/dL (2.5-4.8) H Total Bilirubin 0.6 mg/dL (0.0-1.2) Aspartate Amino Transf (AST/SGOT) 14 U/L (5-40) Alanine Aminotransferase (ALT/SGPT) 5 U/L (3-33) Alkaline Phosphatase 69 U/L (35-104) Troponin I 1.21 ng/mL (<=0.30) *H C-Reactive Protein, Quantitative 2.8 mg/dL (< 0.5) H Pro-B-Type Natriuretic Peptide 7918 pg/mL (0-125) H Total Protein 5.8 g/dL (6.6-8.7) L Albumin 3.8 g/dL (3.5-5.2) Globulin 2.0 g/dL Albumin/Globulin Ratio 1.9 (1.0-2.7) Microbiology Date/Time Source Procedure Growth Status 11/09/16 09:00 Nasal Nares MRSA Culture - Final NO METHICILLIN RESISTANT STAPH AUREUS... Complete 11/09/16 09:00 Rectum VRE Culture - Final NO VANCOMYCIN RESISTANT ENTEROCOCCUS ... Complete Intake and Output 11/10/16 11/11/16 19:00 07:00 Intake Total 709.08 ml 499.092 ml Balance 709.08 ml 499.092 ml Intake Oral 450 ml 240 ml IV Total 259.08 ml 259.092 ml # Voids 2 Assessment/Plan Problem List: (1) Elevated troponin Assessment & Plan: see cardiology note. Will require cardiac cath (2) CAD (coronary artery disease) (3) Diabetes mellitus Assessment & Plan: Cont starlix and novolog sliding scale. (4) Hypertension Assessment & Plan: Cont metoprolol (5) Kidney transplant recipient (6) Anemia (7) ESRD (end stage renal disease) on dialysis Assessment & Plan: See nephrology note. Hemodialysis today (8) ACS (acute coronary syndrome) Status: not improved ENRIKE STARKEY Nov 11, 2016 16:31
[2016-11-11] MEDS: Nitroglycerin 2% oint pkt TOPIC SCH (17:36)
[2016-11-11] MEDS: Atorvastatin 20mg tab ORAL SCH (21:35)
[2016-11-12] VITALS (20 sets, daily range): BP systolic 60–119; BP diastolic 30–73
[2016-11-12 03:46] LABS: MEAN CORPUSCULAR HEMOGLOBIN 32.1 PG (27.0-31.0); MEAN CORPUSCULAR HGB CONC 34.3 G/DL (32.0-36.0); MEAN CORPUSCULAR VOLUME 94 FL (80-99); MEAN PLATELET VOLUME 7.1 FL (6.5-10.1); PLATELET COUNT 125 K/UL (150-450); RED BLOOD COUNT 2.15 M/UL (4.20-5.40); RED CELL DISTRIBUTION WIDTH 13.1 % (11.6-14.8); WHITE BLOOD COUNT 8.3 K/UL (4.8-10.8)
[2016-11-12 04:08] LABS: ALBUMIN/GLOBULIN RATIO 1.4 (1.0-2.7); CALCIUM 8.3 mg/dL (8.6-10.2); CREATININE 5.8 mg/dL (0.5-0.9); GLOMERULAR FILTRATION RATE 7.5 mL/min (>60); PHOSPHORUS 6.5 mg/dL (2.5-4.8); POTASSIUM 4.2 mEQ/L (3.4-4.9); TOTAL PROTEIN 5.7 g/dL (6.6-8.7); URIC ACID 6.7 mg/dL (3.0-7.5)
[2016-11-12 04:09] LABS: INR 1.1 (0.9-1.1); PROTHROMBIN TIME 10.5 SEC (9.30-11.50)
[2016-11-12 04:22] LABS: THYROID STIMULATING HORMONE 3.42 uIU/mL (0.300-4.500)
[2016-11-12 04:37] LABS: TROPONIN I 1.79 ng/mL (<=0.30)
[2016-11-12] MEDS ORDERED: NS 250 ML IVPB ONE (05:00)
[2016-11-12] MEDS: Nitroglycerin 2% oint pkt TOPIC SCH ×3 (06:00→18:00)
[2016-11-12] MEDS: NovoLOG Insulin Flexpen SUBQ SCH ×4 (06:30→21:28)
--- NOTE | 2016-11-12 08:58 | Pulmonology Progress Note ---
Assessment/Plan Assessment/Plan ASSESSMENT melena, hematemesis- likely 2 to heparin hypotension NSTEMI ESRD , on HD anemia of chronic disease DM HTN CAD pacemaker anemia s/p blood transfusion obesity moderate pulmonary HTN moderate TR hx of kidney transplant PLAN OF CARE transferred to ICU heparin drip stopped transfuse 2 u PRBC stat Levophed drip if blood pressure not improved cardio follows troponin with small up trending this am need cath awaiting for transfer when bed available in [place] [facility] hold ASA, Plavix for now statin continue hold BB , Nitro paste O2 HHN prn ECHO with EF 45-50%, RVSP of 45 c/w moderate pulmonary HTN GiIconsult as per PMD CXR + CM, no acute findings Lipid panel with elevated TG 509 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 , after stabilization recommend to add TriCor or similar HD as per neprho, monitor renal parameters, lytes, elevated TSH, re check TSH and free T4 and T3 this am stable GI prophylaxis case discussed and evaluated by supervising physician Subjective Allergies: Coded Allergies: No Known Allergies (Unverified , 11/09/16) Subjective the patient seen prior to transfer to ICU at 0730 am developed melena, vomited blood HH 6.9/20.1 hypotensive-76/30 blood transfusion ordered bolus ordered heparin drip stopped on the way to ICU Objective Last 24 Hour Vital Signs Date Time Temp Pulse Resp B/P Pulse Ox O2 Delivery O2 Flow Rate FiO2 11/12/16 08:00 98.7 86 16 76/30 99 Nasal Cannula 2.0 11/12/16 08:00 86 11/12/16 07:04 97 Nasal Cannula 3.0 32 11/12/16 07:04 Nasal Cannula 3.0 32 11/12/16 07:03 87 18 Nasal Cannula 3.0 11/12/16 06:00 80/40 11/12/16 04:00 87 11/12/16 03:30 97.6 72 20 100/60 99 Room Air 11/12/16 00:00 98.1 82 20 119/61 99 Room Air 11/12/16 00:00 83 11/11/16 21:52 97 Nasal Cannula 3.0 11/11/16 21:52 82 18 Nasal Cannula 3.0 11/11/16 21:52 Nasal Cannula 3.0 11/11/16 21:00 85 107/54 11/11/16 20:00 97.9 85 18 107/54 92 Room Air 11/11/16 20:00 86 11/11/16 17:36 128/68 11/11/16 16:33 128/68 11/11/16 16:00 88 11/11/16 16:00 97.7 86 18 128/68 Nasal Cannula 2.0 96 11/11/16 14:41 86 114/60 11/11/16 14:36 120/65 11/11/16 14:31 126/60 11/11/16 13:00 Nasal Cannula 2.0 11/11/16 12:16 97.5 82 18 137/70 94 Nasal Cannula 2.0 11/11/16 12:00 85 11/11/16 09:50 Nasal Cannula 2.0 Intake and Output 11/11/16 11/12/16 19:00 07:00 Intake Total 664.973 ml 488.221 ml Output Total 1000 ml 500 ml Balance -335.027 ml -11.779 ml Intake Oral 360 ml 240 ml IV Total 304.973 ml 248.221 ml Output Emesis 500 ml Hemodialysis UF 1000 ml # Voids 3 # Bowel Movements 1 Objective General Appearance: mild distress, awake, alert, responsive Cardiovascular: normal rate, regular rhythm, tele SR with 1 st degree AV block ,, bundle branch Respiratory/Chest: lungs clear, normal breath sounds Abdomen: normal bowel sounds, non tender, soft Extremities: no swelling, RUE AV shunt, + thrill/bruit Microbiology Date/Time Source Procedure Growth Status 11/09/16 09:00 Nasal Nares MRSA Culture - Final NO METHICILLIN RESISTANT STAPH AUREUS... Complete 11/09/16 09:00 Rectum VRE Culture - Final NO VANCOMYCIN RESISTANT ENTEROCOCCUS ... Complete Laboratory Tests 11/11/16 12:15: Activated Partial Thromboplast Time 124H 11/11/16 20:22: Activated Partial Thromboplast Time 63H 11/12/16 03:30: Activated Partial Thromboplast Time 76H, White Blood Count 8.3, Red Blood Count 2.15L, Hemoglobin 6.9*L, Hematocrit 20.1L, Mean Corpuscular Volume 94, Mean Corpuscular Hemoglobin 32.1H, Mean Corpuscular Hemoglobin Concent 34.3, Red Cell Distribution Width 13.1, Platelet Count 125L, Mean Platelet Volume 7.1, Neutrophils (%) (Auto) , Lymphocytes (%) (Auto) , Monocytes (%) (Auto) , Eosinophils (%) (Auto) , Basophils (%) (Auto) , Prothrombin Time 10.5, Prothromb Time International Ratio 1.1, Sodium Level 135, Potassium Level 4.2, Chloride Level 92L, Carbon Dioxide Level 23, Anion Gap 20H, Blood Urea Nitrogen 64#H, Creatinine 5.8H, Estimat Glomerular Filtration Rate 7.5, Glucose Level 190H, Uric Acid 6.7, Calcium Level 8.3L, Phosphorus Level 6.5H, Magnesium Level 2.0, Total Bilirubin 0.7, Aspartate Amino Transf (AST/SGOT) 15, Alanine Aminotransferase (ALT/SGPT) 5, Alkaline Phosphatase 64, Troponin I 1.79*H, Pro-B -Type Natriuretic Peptide 7526H, Total Protein 5.7L, Albumin 3.4L, Globulin 2.3 , Albumin/Globulin Ratio 1.4, Thyroid Stimulating Hormone (TSH) 3.420, Free Thyroxine 1.21, Free Triiodothyronine [Pending] Current Medications Medications (Trade) Dose Ordered Sig/Yarelis Route PRN Reason Start Time Stop Time Status Last Admin Dose Admin Acetaminophen (Tylenol) 650 mg Q4H PRN ORAL fever 11/09/16 10:15 12/09/16 10:14 Albuterol/ Ipratropium (DuoNeb 0.5-3(2.5)mg/3ml) 3 ml Q6HRT PRN HHN dyspnea 11/09/16 10:15 11/14/16 10:14 Aspirin (ASA) 81 mg DAILY ORAL 11/10/16 09:00 12/10/16 08:59 11/11/16 08:12 Atorvastatin Calcium (Lipitor) 20 mg BEDTIME ORAL 11/09/16 21:00 12/09/16 20:59 11/11/16 21:35 Cinacalcet (Sensipar) 15 mg DAILY ORAL 11/10/16 09:00 12/10/16 08:59 UNV Clonidine HCl (Catapres) 0.1 mg Q4H PRN ORAL For High Blood Pressure 11/09/16 10:15 12/09/16 10:14 Clopidogrel Bisulfate (Plavix) 75 mg DAILY ORAL 11/10/16 11:30 12/10/16 11:29 11/11/16 08:12 Cyanocobalamin (Vitamin B12) 1,000 mcg DAILY SUBQ 11/10/16 14:00 11/12/16 09:01 11/11/16 08:13 Dextrose (Dextrose 50%) STAT PRN IV Hypoglycemia 11/09/16 10:15 12/09/16 10:14 Insulin Aspart (NovoLOG) BEFORE MEALS AND HS SUBQ 11/09/16 12:30 12/09/16 12:29 11/11/16 21:39 Metoprolol Tartrate (Lopressor) 50 mg Q12HR ORAL 11/09/16 21:00 12/09/16 20:59 Morphine Sulfate (Morphine Sulfate) 1 mg EVERY 4 HOURS PRN IVP For Pain 11/09/16 10:15 11/16/16 10:14 11/11/16 13:11 Nateglinide (Starlix) 120 mg TIAC ORAL 11/09/16 11:30 12/09/16 11:29 11/11/16 16:50 Nitroglycerin (Ntg) 0.4 mg Q5M PRN SL Prn Chest Pain 11/11/16 14:30 12/11/16 14:29 11/11/16 16:33 Nitroglycerin 1 inch 1 inch TID@0600,1200,1800 TOPIC 11/11/16 18:00 12/11/16 17:59 11/11/16 17:36 Ondansetron HCl (Zofran) 4 mg Q6H PRN IVP Nausea & Vomiting 11/09/16 10:15 12/09/16 10:14 11/12/16 03:02 Pantoprazole (Protonix) 40 mg Q12HR IVP 11/09/16 21:00 12/09/16 20:59 11/11/16 21:35 Polyethylene Glycol (Miralax) 17 gm HSPRN PRN ORAL Constipation 11/09/16 10:15 12/09/16 10:14 Pregabalin (Lyrica) 75 mg BID ORAL 11/09/16 11:30 12/09/16 11:29 11/11/16 17:38 Sevelamer Carbonate (Renvela) 2,400 mg THREE TIMES A DAY ORAL 11/11/16 13:00 12/11/16 12:59 11/11/16 17:36 Sodium Chloride (Sodium Chloride) 250 ml @ 50 mls/hr ONCE ONCE IVPB 11/12/16 05:00 11/12/16 09:59 11/12/16 05:12 Zolpidem Tartrate (Ambien) 5 mg HSPRN PRN ORAL Insomnia 11/09/16 10:15 12/09/16 10:14 [facility]Hawa NP Nov 12, 2016 08:58
[2016-11-12] MEDS: Metoprolol 50mg tab ORAL SCH ×2 (09:00→21:00)
[2016-11-12] MEDS: Morphine Sulfate 2mg/ml Inj IVP PRN ×2 (09:15→21:43)
[2016-11-12] MEDS: Pantoprazole Inj IVP SCH (09:37)
[2016-11-12] MEDS: Lyrica 75mg cap ORAL SCH (09:38)
[2016-11-12] MEDS: Vitamin B12 1000mcg/ml Inj SUBQ SCH (11:38)
[2016-11-12] MEDS ORDERED: Pantoprazole 80 MG in NS 250 ML IV SCH (12:00)
--- NOTE | 2016-11-12 12:01 | General Progress Note ---
Assessment/Plan Status: deteriorating - overall status Status Narrative in ICU- GI bleed- Low BP Assessment/Plan Status: ESRD- ACS- with elevated troponin Severe Anemia- transfused DM- HTN- Plan; NPO- Protonix drip- GI eval Optimize cardiac status- echo ej fx 45% Transfusion HD done 11/11 monitor H&H and Renal parameters- per orders Subjective ROS Limited/Unobtainable: No Constitutional: Reports: malaise, weakness Allergies: Coded Allergies: No Known Allergies (Unverified , 11/09/16) Objective Last 24 Hour Vital Signs Date Time Temp Pulse Resp B/P Pulse Ox O2 Delivery O2 Flow Rate FiO2 11/12/16 11:30 92/56 11/12/16 11:00 88 20 92/56 99 Nasal Cannula 2.0 11/12/16 10:00 88 15 92/45 100 Nasal Cannula 2.0 11/12/16 09:41 98.7 11/12/16 09:41 98.7 11/12/16 09:00 85 24 86/48 100 Nasal Cannula 2.0 11/12/16 09:00 86 76/30 11/12/16 08:00 98.7 86 16 76/30 99 Nasal Cannula 2.0 11/12/16 08:00 86 11/12/16 07:25 97.2 80 20 60/35 96 Nasal Cannula 2.0 11/12/16 07:10 97.0 76 20 80/40 96 Nasal Cannula 2.0 11/12/16 07:04 97 Nasal Cannula 3.0 32 11/12/16 07:04 Nasal Cannula 3.0 32 11/12/16 07:03 87 18 Nasal Cannula 3.0 11/12/16 06:00 80/40 11/12/16 04:00 87 11/12/16 03:30 97.6 72 20 100/60 99 Room Air 11/12/16 00:00 98.1 82 20 119/61 99 Room Air 11/12/16 00:00 83 11/11/16 21:52 97 Nasal Cannula 3.0 11/11/16 21:52 82 18 Nasal Cannula 3.0 11/11/16 21:52 Nasal Cannula 3.0 11/11/16 21:00 85 107/54 11/11/16 20:00 97.9 85 18 107/54 92 Room Air 11/11/16 20:00 86 11/11/16 17:36 128/68 11/11/16 16:33 128/68 11/11/16 16:00 88 11/11/16 16:00 97.7 86 18 128/68 Nasal Cannula 2.0 96 11/11/16 14:41 86 114/60 11/11/16 14:36 120/65 11/11/16 14:31 126/60 11/11/16 13:00 Nasal Cannula 2.0 11/11/16 12:16 97.5 82 18 137/70 94 Nasal Cannula 2.0 11/11/16 12:00 85 Intake and Output 11/11/16 11/12/16 19:00 07:00 Intake Total 664.973 ml 488.221 ml Output Total 1000 ml 500 ml Balance -335.027 ml -11.779 ml Intake Oral 360 ml 240 ml IV Total 304.973 ml 248.221 ml Emesis 500 ml Hemodialysis UF 1000 ml # Voids 3 # Bowel Movements 1 Laboratory Tests 11/11/16 12:15: Activated Partial Thromboplast Time 124H 11/11/16 20:22: Activated Partial Thromboplast Time 63H 11/12/16 03:30: Activated Partial Thromboplast Time 76H, White Blood Count 8.3, Red Blood Count 2.15L, Hemoglobin 6.9*L, Hematocrit 20.1L, Mean Corpuscular Volume 94, Mean Corpuscular Hemoglobin 32.1H, Mean Corpuscular Hemoglobin Concent 34.3, Red Cell Distribution Width 13.1, Platelet Count 125L, Mean Platelet Volume 7.1, Neutrophils (%) (Auto) , Lymphocytes (%) (Auto) , Monocytes (%) (Auto) , Eosinophils (%) (Auto) , Basophils (%) (Auto) , Prothrombin Time 10.5, Prothromb Time International Ratio 1.1, Sodium Level 135, Potassium Level 4.2, Chloride Level 92L, Carbon Dioxide Level 23, Anion Gap 20H, Blood Urea Nitrogen 64#H, Creatinine 5.8H, Estimat Glomerular Filtration Rate 7.5, Glucose Level 190H, Uric Acid 6.7, Calcium Level 8.3L, Phosphorus Level 6.5H, Magnesium Level 2.0, Total Bilirubin 0.7, Aspartate Amino Transf (AST/SGOT) 15, Alanine Aminotransferase (ALT/SGPT) 5, Alkaline Phosphatase 64, Troponin I 1.79*H, Pro-B -Type Natriuretic Peptide 7526H, Total Protein 5.7L, Albumin 3.4L, Globulin 2.3 , Albumin/Globulin Ratio 1.4, Thyroid Stimulating Hormone (TSH) 3.420, Free Thyroxine 1.21, Free Triiodothyronine [Pending] Height (Feet): 5 Height (Inches): 0.00 Weight (Pounds): 170 General Appearance: mild distress Cardiovascular: tachycardia Respiratory/Chest: decreased breath sounds Abdomen: soft Objective other PE not changed OMARI BLOCK Nov 12, 2016 12:01
--- NOTE | 2016-11-12 13:48 | Cardiology Progress Note ---
Assessment/Plan Assessment/Plan chest pain, elevated troponin acute AK with ongoing chest pain now has to be off antiplatelt agents and heparin until Hb is stabilized D/W GI Dr Israel, would hold on on endoscopy until she is more stable, chest pain resolved probably needs cardiac cath Subjective Subjective the patient was transferred to ICU overnight because of hypotension she had episode of hematemesis and then dropped her BP Heparin was stopped she is mild right sided chest pain now, but it is better Objective Last 24 Hour Vital Signs Date Time Temp Pulse Resp B/P Pulse Ox O2 Delivery O2 Flow Rate FiO2 11/12/16 13:00 89 19 89/63 100 Nasal Cannula 2.0 11/12/16 12:33 98/44 11/12/16 12:00 88 11/12/16 12:00 98.1 88 21 98/44 99 Nasal Cannula 2.0 11/12/16 11:30 92/56 11/12/16 11:00 88 20 92/56 99 Nasal Cannula 2.0 11/12/16 10:00 88 15 92/45 100 Nasal Cannula 2.0 11/12/16 09:41 98.7 11/12/16 09:41 98.7 11/12/16 09:00 85 24 86/48 100 Nasal Cannula 2.0 11/12/16 09:00 86 76/30 11/12/16 08:00 98.7 86 16 76/30 99 Nasal Cannula 2.0 11/12/16 08:00 86 11/12/16 07:25 97.2 80 20 60/35 96 Nasal Cannula 2.0 11/12/16 07:10 97.0 76 20 80/40 96 Nasal Cannula 2.0 11/12/16 07:04 97 Nasal Cannula 3.0 32 11/12/16 07:04 Nasal Cannula 3.0 32 11/12/16 07:03 87 18 Nasal Cannula 3.0 11/12/16 06:00 80/40 11/12/16 04:00 87 11/12/16 03:30 97.6 72 20 100/60 99 Room Air 11/12/16 00:00 98.1 82 20 119/61 99 Room Air 11/12/16 00:00 83 11/11/16 21:52 97 Nasal Cannula 3.0 11/11/16 21:52 82 18 Nasal Cannula 3.0 11/11/16 21:52 Nasal Cannula 3.0 11/11/16 21:00 85 107/54 11/11/16 20:00 97.9 85 18 107/54 92 Room Air 11/11/16 20:00 86 11/11/16 17:36 128/68 11/11/16 16:33 128/68 11/11/16 16:00 88 11/11/16 16:00 97.7 86 18 128/68 Nasal Cannula 2.0 96 11/11/16 14:41 86 114/60 11/11/16 14:36 120/65 11/11/16 14:31 126/60 General Appearance: other - pale and ill appearing EENT: PERRL/EOMI Neck: no JVD Rhythm: NSR Cardiovascular: systolic murmur Respiratory/Chest: crackles/rales Abdomen: non tender, soft, no mass Extremities: no swelling Intake and Output 11/11/16 11/12/16 19:00 07:00 Intake Total 664.973 ml 488.221 ml Output Total 1000 ml 500 ml Balance -335.027 ml -11.779 ml Intake Oral 360 ml 240 ml IV Total 304.973 ml 248.221 ml Emesis 500 ml Hemodialysis UF 1000 ml # Voids 3 # Bowel Movements 1 Laboratory Tests Test 11/11/16 20:22 11/12/16 03:30 Activated Partial Thromboplast Time 63 SEC (23-33) H 76 SEC (23-33) H White Blood Count 8.3 K/UL (4.8-10.8) Red Blood Count 2.15 M/UL (4.20-5.40) L Hemoglobin 6.9 G/DL (12.0-16.0) *L Hematocrit 20.1 % (37.0-47.0) L Mean Corpuscular Volume 94 FL (80-99) Mean Corpuscular Hemoglobin 32.1 PG (27.0-31.0) H Mean Corpuscular Hemoglobin Concent 34.3 G/DL (32.0-36.0) Red Cell Distribution Width 13.1 % (11.6-14.8) Platelet Count 125 K/UL (150-450) L Mean Platelet Volume 7.1 FL (6.5-10.1) Neutrophils (%) (Auto) % (45.0-75.0) Lymphocytes (%) (Auto) % (20.0-45.0) Monocytes (%) (Auto) % (1.0-10.0) Eosinophils (%) (Auto) % (0.0-3.0) Basophils (%) (Auto) % (0.0-2.0) Prothrombin Time 10.5 SEC (9.30-11.50) Prothromb Time International Ratio 1.1 (0.9-1.1) Sodium Level 135 mEQ/L (135-145) Potassium Level 4.2 mEQ/L (3.4-4.9) Chloride Level 92 mEQ/L (98-107) L Carbon Dioxide Level 23 mEQ/L (20-30) Anion Gap 20 (5-15) H Blood Urea Nitrogen 64 mg/dL (7-23) #H Creatinine 5.8 mg/dL (0.5-0.9) H Estimat Glomerular Filtration Rate 7.5 mL/min (>60) Glucose Level 190 mg/dL (74-106) H Uric Acid 6.7 mg/dL (3.0-7.5) Calcium Level 8.3 mg/dL (8.6-10.2) L Phosphorus Level 6.5 mg/dL (2.5-4.8) H Magnesium Level 2.0 mg/dL (1.7-2.5) Total Bilirubin 0.7 mg/dL (0.0-1.2) Aspartate Amino Transf (AST/SGOT) 15 U/L (5-40) Alanine Aminotransferase (ALT/SGPT) 5 U/L (3-33) Alkaline Phosphatase 64 U/L (35-104) Troponin I 1.79 ng/mL (<=0.30) *H Pro-B-Type Natriuretic Peptide 7526 pg/mL (0-125) H Total Protein 5.7 g/dL (6.6-8.7) L Albumin 3.4 g/dL (3.5-5.2) L Globulin 2.3 g/dL Albumin/Globulin Ratio 1.4 (1.0-2.7) Thyroid Stimulating Hormone (TSH) 3.420 uIU/mL (0.300-4.500) Free Thyroxine 1.21 ng/dL (0.86-1.85) Free Triiodothyronine Dayanaing JUANJO MATT Nov 12, 2016 13:48
[2016-11-12] MEDS ORDERED: DuoNeb 0.5-3(2.5)mg/3ml neb HHN PRN (15:45)
[2016-11-12] MEDS ORDERED: Zolpidem 5mg tab ORAL PRN (15:45)
--- NOTE | 2016-11-12 18:03 | Internal Med Progress Note ---
Subjective Date of Service: Nov 12, 2016 Physician Name Wilber Starkey Attending Physician David Snyder MD Current Medications Medications (Trade) Dose Ordered Sig/Yarelis Route PRN Reason Start Time Stop Time Status Last Admin Dose Admin Acetaminophen (Tylenol) 650 mg Q4H PRN ORAL fever 11/12/16 15:45 12/12/16 15:44 Albuterol/ Ipratropium (DuoNeb 0.5-3(2.5)mg/3ml) 3 ml Q6H PRN HHN dyspnea 11/12/16 15:45 11/17/16 15:44 Atorvastatin Calcium (Lipitor) 20 mg BEDTIME ORAL 11/12/16 21:00 12/12/16 20:59 Clonidine HCl (Catapres) 0.1 mg Q4H PRN ORAL For High Blood Pressure 11/12/16 15:45 12/12/16 15:44 Dextrose (Dextrose 50%) STAT PRN IV Hypoglycemia 11/12/16 15:45 12/12/16 15:44 Insulin Aspart (NovoLOG) BEFORE MEALS AND HS SUBQ 11/12/16 16:30 12/12/16 16:29 11/12/16 16:47 Metoprolol Tartrate (Lopressor) 50 mg Q12HR ORAL 11/12/16 21:00 12/12/16 20:59 Morphine Sulfate (Morphine Sulfate) 1 mg Q4H PRN IVP For Pain 11/12/16 16:00 11/19/16 15:59 Nitroglycerin (Nitro-Bid) 1 inch TID@0600,1200,1800 TOPIC 11/12/16 18:00 12/12/16 17:59 Nitroglycerin (Ntg) 0.4 mg Q5M PRN SL Prn Chest Pain 11/12/16 15:35 12/12/16 15:34 Norepinephrine Bitartrate 4 mg/ Dextrose 250 ml @ 0 mls/hr Q24H IV 11/12/16 16:00 12/12/16 15:59 Ondansetron HCl (Zofran) 4 mg Q6H PRN IVP Nausea & Vomiting 11/12/16 15:45 12/12/16 15:44 Pantoprazole 80 mg/Sodium Chloride 250 ml @ 25 mls/hr Q10H IV 11/12/16 12:00 3/19/17 21:59 11/12/16 12:33 Pantoprazole/ Sodium Chloride (Protonix/Sodium Chloride) 250 ml @ 25 mls/hr Q10H IV 11/12/16 22:00 12/12/16 21:59 Zolpidem Tartrate (Ambien) 5 mg HSPRN PRN ORAL Insomnia 11/12/16 15:45 12/12/16 15:44 Allergies: Coded Allergies: No Known Allergies (Unverified , 11/09/16) ROS Limited/Unobtainable: Yes Subjective 56 YO f admitted with Chest pain. Hematemesis and hypotension overnight. Now in ICU. Cover for Int Med-Dr Snyder. Objective Last Vital Signs Date Time Temp Pulse Resp B/P Pulse Ox O2 Delivery O2 Flow Rate FiO2 11/12/16 17:00 86 18 95/37 100 Nasal Cannula 2.0 11/12/16 12:00 98.1 11/12/16 07:04 32 Laboratory Tests Test 11/11/16 20:22 11/12/16 03:30 Activated Partial Thromboplast Time 63 SEC (23-33) H 76 SEC (23-33) H White Blood Count 8.3 K/UL (4.8-10.8) Red Blood Count 2.15 M/UL (4.20-5.40) L Hemoglobin 6.9 G/DL (12.0-16.0) *L Hematocrit 20.1 % (37.0-47.0) L Mean Corpuscular Volume 94 FL (80-99) Mean Corpuscular Hemoglobin 32.1 PG (27.0-31.0) H Mean Corpuscular Hemoglobin Concent 34.3 G/DL (32.0-36.0) Red Cell Distribution Width 13.1 % (11.6-14.8) Platelet Count 125 K/UL (150-450) L Mean Platelet Volume 7.1 FL (6.5-10.1) Neutrophils (%) (Auto) % (45.0-75.0) Lymphocytes (%) (Auto) % (20.0-45.0) Monocytes (%) (Auto) % (1.0-10.0) Eosinophils (%) (Auto) % (0.0-3.0) Basophils (%) (Auto) % (0.0-2.0) Prothrombin Time 10.5 SEC (9.30-11.50) Prothromb Time International Ratio 1.1 (0.9-1.1) Sodium Level 135 mEQ/L (135-145) Potassium Level 4.2 mEQ/L (3.4-4.9) Chloride Level 92 mEQ/L (98-107) L Carbon Dioxide Level 23 mEQ/L (20-30) Anion Gap 20 (5-15) H Blood Urea Nitrogen 64 mg/dL (7-23) #H Creatinine 5.8 mg/dL (0.5-0.9) H Estimat Glomerular Filtration Rate 7.5 mL/min (>60) Glucose Level 190 mg/dL (74-106) H Uric Acid 6.7 mg/dL (3.0-7.5) Calcium Level 8.3 mg/dL (8.6-10.2) L Phosphorus Level 6.5 mg/dL (2.5-4.8) H Magnesium Level 2.0 mg/dL (1.7-2.5) Total Bilirubin 0.7 mg/dL (0.0-1.2) Aspartate Amino Transf (AST/SGOT) 15 U/L (5-40) Alanine Aminotransferase (ALT/SGPT) 5 U/L (3-33) Alkaline Phosphatase 64 U/L (35-104) Troponin I 1.79 ng/mL (<=0.30) *H Pro-B-Type Natriuretic Peptide 7526 pg/mL (0-125) H Total Protein 5.7 g/dL (6.6-8.7) L Albumin 3.4 g/dL (3.5-5.2) L Globulin 2.3 g/dL Albumin/Globulin Ratio 1.4 (1.0-2.7) Thyroid Stimulating Hormone (TSH) 3.420 uIU/mL (0.300-4.500) Free Thyroxine 1.21 ng/dL (0.86-1.85) Free Triiodothyronine Pending Intake and Output 11/11/16 11/12/16 19:00 07:00 Intake Total 664.973 ml 488.221 ml Output Total 1000 ml 500 ml Balance -335.027 ml -11.779 ml Intake Oral 360 ml 240 ml IV Total 304.973 ml 248.221 ml Emesis 500 ml Hemodialysis UF 1000 ml # Voids 3 # Bowel Movements 1 Objective General Appearance: WD/WN, no apparent distress EENT: PERRL/EOMI, normal ENT inspection Neck: non-tender, normal alignment, supple, normal inspection Cardiovascular: normal peripheral pulses, regular rhythm, no gallop/murmur, no JVD Respiratory/Chest: chest wall non-tender, lungs clear, normal breath sounds, no respiratory distress, no accessory muscle use Abdomen: normal bowel sounds, non tender, soft, no organomegaly, no mass Neurologic: medication aide II-XII grossly normal, no motor/sensory deficits Skin: normal pigmentation, warm/dry Assessment/Plan Problem List: (1) Elevated troponin Assessment & Plan: see cardiology note. Will require cardiac cath (2) CAD (coronary artery disease) (3) Diabetes mellitus Assessment & Plan: Cont starlix and novolog sliding scale. (4) Hypertension Assessment & Plan: Cont metoprolol (5) Kidney transplant recipient (6) ESRD (end stage renal disease) on dialysis Assessment & Plan: See nephrology note. S/P Hemodialysis 11/11/18. (7) ACS (acute coronary syndrome) (8) Hematemesis Assessment & Plan: Due to heparin; D/C heparin drip. See GI note. Endoscopy when patient stable. (9) Melena (10) Hypotensive episode Assessment & Plan: Due to GI bleed. (11) Anemia, blood loss Assessment & Plan: ? due to heparin? D/C heparin drip. S/P transfusion 2 Units PRBC today, 11/12/16. 4 units total. Status: deteriorating Assessment/Plan Prognosis is guarded. WILBER STARKEY Nov 12, 2016 18:03
[2016-11-12 18:41] LABS: MEAN CORPUSCULAR HEMOGLOBIN 31.5 PG (27.0-31.0); MEAN CORPUSCULAR HGB CONC 34.5 G/DL (32.0-36.0); MEAN CORPUSCULAR VOLUME 91 FL (80-99); MEAN PLATELET VOLUME 8.4 FL (6.5-10.1); PLATELET COUNT 115 K/UL (150-450); RED BLOOD COUNT 2.44 M/UL (4.20-5.40); RED CELL DISTRIBUTION WIDTH 13.5 % (11.6-14.8); WHITE BLOOD COUNT 10.7 K/UL (4.8-10.8)
[2016-11-12 20:56] LABS: EOSINOPHILS % (MANUAL) 1 % (0-3); LYMPHOCYTES % (MANUAL) 18 % (20-45); NEUTROPHILS % (MANUAL) 81 % (45-75); TOTAL CELLS COUNTED 100
[2016-11-12 21:01] LABS: BAND NEUTROPHILS % (MANUAL) 0 % (0-8); BASOPHILS % (MANUAL) 0 % (0-2); HYPOCHROMASIA 1+; PLATELET ESTIMATE DECREASED; PLATELET MORPHOLOGY NORMAL
[2016-11-12] MEDS: Atorvastatin 20mg tab ORAL SCH (21:27)
[2016-11-12] MEDS: Pantoprazole 80 MG in NS 250 ML IV SCH (22:08)
[2016-11-13] VITALS (25 sets, daily range): BP systolic 85–116; BP diastolic 47–81
[2016-11-13 04:17] LABS: MEAN CORPUSCULAR HEMOGLOBIN 31.5 PG (27.0-31.0); MEAN CORPUSCULAR HGB CONC 34.4 G/DL (32.0-36.0); MEAN CORPUSCULAR VOLUME 92 FL (80-99); MEAN PLATELET VOLUME 8.4 FL (6.5-10.1); PLATELET COUNT 126 K/UL (150-450); RED BLOOD COUNT 2.27 M/UL (4.20-5.40); RED CELL DISTRIBUTION WIDTH 14.3 % (11.6-14.8); WHITE BLOOD COUNT 10.3 K/UL (4.8-10.8)
[2016-11-13] MEDS: Morphine Sulfate 2mg/ml Inj IVP PRN ×3 (05:03→15:36)
[2016-11-13] MEDS: Nitroglycerin 2% oint pkt TOPIC SCH ×3 (06:00→18:00)
[2016-11-13] MEDS: NovoLOG Insulin Flexpen SUBQ SCH ×4 (06:16→21:05)
[2016-11-13 06:49] LABS: ALBUMIN/GLOBULIN RATIO 1.5 (1.0-2.7); CRP QUANT 6.1 mg/dL (< 0.5); GLOMERULAR FILTRATION RATE 6.1 mL/min (>60); PHOSPHORUS 6.8 mg/dL (2.5-4.8); POTASSIUM 4.8 mEQ/L (3.4-4.9)
[2016-11-13 07:11] LABS: TROPONIN I 7.88 ng/mL (<=0.30)
[2016-11-13] MEDS: Nitroglycerin Subl 0.4mg tab (Bottle Of 25) SL PRN ×3 (07:28→08:30)
[2016-11-13] MEDS: Pantoprazole 80 MG in NS 250 ML IV SCH ×2 (08:56→18:27)
[2016-11-13] MEDS: Metoprolol 50mg tab ORAL SCH ×2 (09:00→21:03)
--- NOTE | 2016-11-13 10:09 | General Progress Note ---
Assessment/Plan Status: unchanged Assessment/Plan Status: ESRD- ACS- with elevated troponin Severe Anemia- transfused GI bleed DM- HTN- Plan; NPO- Protonix drip- GI eval Optimize cardiac status- echo ej fx 45% Transfusion HD today monitor H&H and Renal parameters- per consultants per orders Subjective ROS Limited/Unobtainable: No Constitutional: Reports: malaise, weakness Allergies: Coded Allergies: No Known Allergies (Unverified , 11/09/16) Objective Last 24 Hour Vital Signs Date Time Temp Pulse Resp B/P Pulse Ox O2 Delivery O2 Flow Rate FiO2 11/13/16 10:00 85 17 102/49 100 Nasal Cannula 2.0 11/13/16 09:34 97.6 11/13/16 09:00 81 14 114/60 100 Nasal Cannula 2.0 11/13/16 09:00 81 114/60 11/13/16 08:45 Nasal Cannula 2.0 11/13/16 08:40 97.6 79 20 106/59 100 Nasal Cannula 2.0 11/13/16 08:30 116/59 11/13/16 08:03 116/59 11/13/16 08:00 85 11/13/16 08:00 97.5 85 18 116/59 94 Nasal Cannula 2.0 11/13/16 07:55 97.0 11/13/16 07:28 105/70 11/13/16 07:00 85 20 114/60 100 Nasal Cannula 2.0 11/13/16 06:00 115/65 11/13/16 06:00 80 14 105/62 100 Nasal Cannula 2.0 11/13/16 05:00 82 20 113/49 100 Nasal Cannula 2.0 11/13/16 04:00 83 11/13/16 04:00 97.0 85 16 93/49 100 Nasal Cannula 2.0 11/13/16 03:00 70 18 85/47 100 Nasal Cannula 2.0 11/13/16 02:00 79 14 91/55 100 Nasal Cannula 2.0 11/13/16 01:00 79 14 94/52 100 Nasal Cannula 2.0 11/13/16 00:00 83 11/13/16 00:00 83 17 87/48 100 Nasal Cannula 2.0 11/12/16 23:00 97.9 84 14 92/61 100 Nasal Cannula 2.0 11/12/16 22:00 84 14 94/61 100 Nasal Cannula 2.0 11/12/16 21:00 80 90/59 11/12/16 21:00 85 14 92/59 100 Nasal Cannula 2.0 11/12/16 20:00 98.1 84 14 90/38 100 Nasal Cannula 2.0 11/12/16 20:00 84 11/12/16 19:15 Nasal Cannula 3.0 32 11/12/16 19:14 84 18 Nasal Cannula 3.0 11/12/16 19:14 97 Nasal Cannula 3.0 32 11/12/16 19:00 84 14 103/73 100 Nasal Cannula 2.0 11/12/16 18:00 92/44 11/12/16 18:00 84 16 92/44 100 Nasal Cannula 2.0 11/12/16 17:00 86 18 95/37 100 Nasal Cannula 2.0 11/12/16 16:00 97.2 88 18 88/65 100 Nasal Cannula 2.0 11/12/16 16:00 88/65 11/12/16 16:00 88 11/12/16 15:00 87 16 92/46 100 Nasal Cannula 2.0 11/12/16 14:00 87 17 86/34 100 Nasal Cannula 2.0 11/12/16 13:00 89 19 89/63 100 Nasal Cannula 2.0 11/12/16 12:33 98/44 11/12/16 12:00 88 11/12/16 12:00 98.1 88 21 98/44 99 Nasal Cannula 2.0 11/12/16 11:30 92/56 11/12/16 11:00 88 20 92/56 99 Nasal Cannula 2.0 Intake and Output 11/12/16 11/13/16 19:00 07:00 Intake Total 1325 ml 720 ml Output Total 1030 ml 450 ml Balance 295 ml 270 ml Intake Oral 375 ml 330 ml IV Total 225 ml 300 ml Blood Product 725 ml Other 90 ml Output Urine Total 880 ml 150 ml Stool Total 300 ml Emesis 150 ml # Voids 80 # Bowel Movements 8 Laboratory Tests 11/12/16 18:03: White Blood Count 10.7, Red Blood Count 2.44L, Hemoglobin 7.7L, Hematocrit 22.2L , Mean Corpuscular Volume 91, Mean Corpuscular Hemoglobin 31.5H, Mean Corpuscular Hemoglobin Concent 34.5, Red Cell Distribution Width 13.5, Platelet Count 115L, Mean Platelet Volume 8.4, Neutrophils (%) (Auto) , Lymphocytes (%) ( Auto) , Monocytes (%) (Auto) , Eosinophils (%) (Auto) , Basophils (%) (Auto) , Differential Total Cells Counted 100, Neutrophils % (Manual) 81H, Lymphocytes % (Manual) 18L, Monocytes % (Manual) 0L, Eosinophils % (Manual) 1, Basophils % ( Manual) 0, Band Neutrophils 0, Platelet Estimate DecreasedL, Platelet Morphology Normal, Hypochromasia + 11/13/16 03:40: White Blood Count 10.3, Red Blood Count 2.27L, Hemoglobin 7.1L, Hematocrit 20.7L , Mean Corpuscular Volume 92, Mean Corpuscular Hemoglobin 31.5H, Mean Corpuscular Hemoglobin Concent 34.4, Red Cell Distribution Width 14.3, Platelet Count 126L, Mean Platelet Volume 8.4, Neutrophils (%) (Auto) , Lymphocytes (%) ( Auto) , Monocytes (%) (Auto) , Eosinophils (%) (Auto) , Basophils (%) (Auto) , Sodium Level 137, Potassium Level 4.8, Chloride Level 95L, Carbon Dioxide Level 19L, Anion Gap 23H, Blood Urea Nitrogen 96#H, Creatinine 7.0H, Estimat Glomerular Filtration Rate 6.1, Glucose Level 178H, Uric Acid 8.0H, Calcium Level 8.0L, Phosphorus Level 6.8H, Magnesium Level 2.0, Total Bilirubin 0.8, Aspartate Amino Transf (AST/SGOT) 32, Alanine Aminotransferase (ALT/SGPT) 5, Alkaline Phosphatase 53, Troponin I 7.88*H, C-Reactive Protein, Quantitative 6.1H, Pro-B-Type Natriuretic Peptide 23169S, Total Protein 5.0L, Albumin 3.0L, Globulin 2.0, Albumin/Globulin Ratio 1.5 Height (Feet): 5 Height (Inches): 0.00 Weight (Pounds): 170 General Appearance: lethargic, mild distress Cardiovascular: tachycardia Respiratory/Chest: decreased breath sounds Abdomen: distended Objective other PE not changed OMARI BLOCK Nov 13, 2016 10:09
--- NOTE | 2016-11-13 10:24 | Pulmonolgy Critical Care Note ---
Critical Care - Asmt/Plan Problems: (1) Hematemesis (2) Hypotensive episode (3) Melena (4) ACS (acute coronary syndrome) (5) ESRD (end stage renal disease) on dialysis (6) Diabetes mellitus (7) Anemia Respiratory: monitor respiratory rate, adjust FIO2, CXR Cardiac: continue to monitor HR/BP Renal: F/U I&O, keep IV fluid, check electrolytes Infectious Disease: check cultures, continue antibiotics Gastrointestinal: continue feedings/current rate Endocrine: monitor blood sugar, continue sliding scale insulin Hematologic: monitor H/H, transfuse if hgb<8.5 Neurologic: PRN Ativan, PRN Morphine Affect: PRN ativan Prophylaxis: Protonix, Heparin Disposition: keep in ICU Notes Reviewed: dough cutter, cardio Discussed with: nurses, consultants, rn field case managerschool business manager - Objective Last 24 Hour Vital Signs Date Time Temp Pulse Resp B/P Pulse Ox O2 Delivery O2 Flow Rate FiO2 11/13/16 10:00 85 17 102/49 100 Nasal Cannula 2.0 11/13/16 09:34 97.6 11/13/16 09:00 81 14 114/60 100 Nasal Cannula 2.0 11/13/16 09:00 81 114/60 11/13/16 08:45 Nasal Cannula 2.0 11/13/16 08:40 97.6 79 20 106/59 100 Nasal Cannula 2.0 11/13/16 08:30 116/59 11/13/16 08:03 116/59 11/13/16 08:00 85 11/13/16 08:00 97.5 85 18 116/59 94 Nasal Cannula 2.0 11/13/16 07:55 97.0 11/13/16 07:28 105/70 11/13/16 07:00 85 20 114/60 100 Nasal Cannula 2.0 11/13/16 06:00 115/65 11/13/16 06:00 80 14 105/62 100 Nasal Cannula 2.0 11/13/16 05:00 82 20 113/49 100 Nasal Cannula 2.0 11/13/16 04:00 83 11/13/16 04:00 97.0 85 16 93/49 100 Nasal Cannula 2.0 11/13/16 03:00 70 18 85/47 100 Nasal Cannula 2.0 11/13/16 02:00 79 14 91/55 100 Nasal Cannula 2.0 11/13/16 01:00 79 14 94/52 100 Nasal Cannula 2.0 11/13/16 00:00 83 11/13/16 00:00 83 17 87/48 100 Nasal Cannula 2.0 11/12/16 23:00 97.9 84 14 92/61 100 Nasal Cannula 2.0 11/12/16 22:00 84 14 94/61 100 Nasal Cannula 2.0 11/12/16 21:00 80 90/59 11/12/16 21:00 85 14 92/59 100 Nasal Cannula 2.0 11/12/16 20:00 98.1 84 14 90/38 100 Nasal Cannula 2.0 11/12/16 20:00 84 11/12/16 19:15 Nasal Cannula 3.0 32 11/12/16 19:14 84 18 Nasal Cannula 3.0 11/12/16 19:14 97 Nasal Cannula 3.0 32 11/12/16 19:00 84 14 103/73 100 Nasal Cannula 2.0 11/12/16 18:00 92/44 11/12/16 18:00 84 16 92/44 100 Nasal Cannula 2.0 11/12/16 17:00 86 18 95/37 100 Nasal Cannula 2.0 11/12/16 16:00 97.2 88 18 88/65 100 Nasal Cannula 2.0 11/12/16 16:00 88/65 11/12/16 16:00 88 11/12/16 15:00 87 16 92/46 100 Nasal Cannula 2.0 11/12/16 14:00 87 17 86/34 100 Nasal Cannula 2.0 11/12/16 13:00 89 19 89/63 100 Nasal Cannula 2.0 11/12/16 12:33 98/44 11/12/16 12:00 88 11/12/16 12:00 98.1 88 21 98/44 99 Nasal Cannula 2.0 11/12/16 11:30 92/56 11/12/16 11:00 88 20 92/56 99 Nasal Cannula 2.0 Status: awake Condition: improving HEENT: atraumatic Neck: full ROM Lungs: clear Heart: HR/BP stable, HR/BP unstable Abdomen: soft, non-tender Extremities: no C/C/E Decubiti: location, stage Accucheck: 257 Critical Care - Subjective ICU Day: 2 EKG Rhythm: Sinus Rhythm FI02: 32 Sputum Amount: None Drips: protonix drip I&O: Intake and Output 11/12/16 11/13/16 19:00 07:00 Intake Total 1325 ml 720 ml Output Total 1030 ml 450 ml Balance 295 ml 270 ml Intake Oral 375 ml 330 ml IV Total 225 ml 300 ml Blood Product 725 ml Other 90 ml Output Urine Total 880 ml 150 ml Stool Total 300 ml Emesis 150 ml # Voids 80 # Bowel Movements 8 CXR: mild congestion Labs: Laboratory Tests Test 11/12/16 18:03 11/13/16 03:40 White Blood Count 10.7 K/UL (4.8-10.8) 10.3 K/UL (4.8-10.8) Red Blood Count 2.44 M/UL (4.20-5.40) L 2.27 M/UL (4.20-5.40) L Hemoglobin 7.7 G/DL (12.0-16.0) L 7.1 G/DL (12.0-16.0) L Hematocrit 22.2 % (37.0-47.0) L 20.7 % (37.0-47.0) L Mean Corpuscular Volume 91 FL (80-99) 92 FL (80-99) Mean Corpuscular Hemoglobin 31.5 PG (27.0-31.0) H 31.5 PG (27.0-31.0) H Mean Corpuscular Hemoglobin Concent 34.5 G/DL (32.0-36.0) 34.4 G/DL (32.0-36.0) Red Cell Distribution Width 13.5 % (11.6-14.8) 14.3 % (11.6-14.8) Platelet Count 115 K/UL (150-450) L 126 K/UL (150-450) L Mean Platelet Volume 8.4 FL (6.5-10.1) 8.4 FL (6.5-10.1) Neutrophils (%) (Auto) % (45.0-75.0) % (45.0-75.0) Lymphocytes (%) (Auto) % (20.0-45.0) % (20.0-45.0) Monocytes (%) (Auto) % (1.0-10.0) % (1.0-10.0) Eosinophils (%) (Auto) % (0.0-3.0) % (0.0-3.0) Basophils (%) (Auto) % (0.0-2.0) % (0.0-2.0) Differential Total Cells Counted 100 Neutrophils % (Manual) 81 % (45-75) H Lymphocytes % (Manual) 18 % (20-45) L Monocytes % (Manual) 0 % (1-10) L Eosinophils % (Manual) 1 % (0-3) Basophils % (Manual) 0 % (0-2) Band Neutrophils 0 % (0-8) Platelet Estimate Decreased L Platelet Morphology Normal Hypochromasia 1+ Sodium Level 137 mEQ/L (135-145) Potassium Level 4.8 mEQ/L (3.4-4.9) Chloride Level 95 mEQ/L (98-107) L Carbon Dioxide Level 19 mEQ/L (20-30) L Anion Gap 23 (5-15) H Blood Urea Nitrogen 96 mg/dL (7-23) #H Creatinine 7.0 mg/dL (0.5-0.9) H Estimat Glomerular Filtration Rate 6.1 mL/min (>60) Glucose Level 178 mg/dL (74-106) H Uric Acid 8.0 mg/dL (3.0-7.5) H Calcium Level 8.0 mg/dL (8.6-10.2) L Phosphorus Level 6.8 mg/dL (2.5-4.8) H Magnesium Level 2.0 mg/dL (1.7-2.5) Total Bilirubin 0.8 mg/dL (0.0-1.2) Aspartate Amino Transf (AST/SGOT) 32 U/L (5-40) Alanine Aminotransferase (ALT/SGPT) 5 U/L (3-33) Alkaline Phosphatase 53 U/L (35-104) Troponin I 7.88 ng/mL (<=0.30) *H C-Reactive Protein, Quantitative 6.1 mg/dL (< 0.5) H Pro-B-Type Natriuretic Peptide 37330 pg/mL (0-125) H Total Protein 5.0 g/dL (6.6-8.7) L Albumin 3.0 g/dL (3.5-5.2) L Globulin 2.0 g/dL Albumin/Globulin Ratio 1.5 (1.0-2.7) EMILY LYONS Nov 13, 2016 10:24
--- NOTE | 2016-11-13 10:35 | General Progress Note ---
Assessment/Plan Problem List: (1) ESRD (end stage renal disease) on dialysis ICD Codes: N18.6 - End stage renal disease; Z99.2 - Dependence on renal dialysis SNOMED: 823247946 (2) Anemia ICD Codes: D64.9 - Anemia, unspecified SNOMED: 403885474 Qualifiers: Qualified Codes: D64.9 - Anemia, unspecified (3) Diabetes mellitus ICD Codes: E11.9 - Type 2 diabetes mellitus without complications SNOMED: 64376725 Qualifiers: (4) CAD (coronary artery disease) ICD Codes: I25.10 - Atherosclerotic heart disease of [place] coronary artery without angina pectoris SNOMED: 40865284 (5) ACS (acute coronary syndrome) ICD Codes: I24.9 - Acute ischemic heart disease, unspecified SNOMED: 985172156 (6) Hypertension ICD Codes: I10 - Essential (primary) hypertension SNOMED: 58774559 (7) Elevated troponin ICD Codes: R79.89 - Other specified abnormal findings of blood chemistry SNOMED: 663627873, 551436390 (8) Hematemesis ICD Codes: K92.0 - Hematemesis SNOMED: 2077788 (9) Melena ICD Codes: K92.1 - Melena SNOMED: 2016796, 579897125 Assessment/Plan rising troponing stable H&H pending another blood transfusion ppi drip EGD on hold given active PR Subjective ROS Limited/Unobtainable: Yes Allergies: Coded Allergies: No Known Allergies (Unverified , 11/09/16) Subjective no BM Objective Last 24 Hour Vital Signs Date Time Temp Pulse Resp B/P Pulse Ox O2 Delivery O2 Flow Rate FiO2 11/13/16 10:00 85 17 102/49 100 Nasal Cannula 2.0 11/13/16 09:34 97.6 11/13/16 09:00 81 14 114/60 100 Nasal Cannula 2.0 11/13/16 09:00 81 114/60 11/13/16 08:45 Nasal Cannula 2.0 11/13/16 08:40 97.6 79 20 106/59 100 Nasal Cannula 2.0 11/13/16 08:30 116/59 11/13/16 08:03 116/59 11/13/16 08:00 85 11/13/16 08:00 97.5 85 18 116/59 94 Nasal Cannula 2.0 3/20/17 07:55 97.0 11/13/16 07:28 105/70 11/13/16 07:00 85 20 114/60 100 Nasal Cannula 2.0 11/13/16 06:00 115/65 11/13/16 06:00 80 14 105/62 100 Nasal Cannula 2.0 11/13/16 05:00 82 20 113/49 100 Nasal Cannula 2.0 11/13/16 04:00 83 11/13/16 04:00 97.0 85 16 93/49 100 Nasal Cannula 2.0 11/13/16 03:00 70 18 85/47 100 Nasal Cannula 2.0 11/13/16 02:00 79 14 91/55 100 Nasal Cannula 2.0 11/13/16 01:00 79 14 94/52 100 Nasal Cannula 2.0 11/13/16 00:00 83 11/13/16 00:00 83 17 87/48 100 Nasal Cannula 2.0 11/12/16 23:00 97.9 84 14 92/61 100 Nasal Cannula 2.0 11/12/16 22:00 84 14 94/61 100 Nasal Cannula 2.0 11/12/16 21:00 80 90/59 11/12/16 21:00 85 14 92/59 100 Nasal Cannula 2.0 11/12/16 20:00 98.1 84 14 90/38 100 Nasal Cannula 2.0 11/12/16 20:00 84 11/12/16 19:15 Nasal Cannula 3.0 32 11/12/16 19:14 84 18 Nasal Cannula 3.0 11/12/16 19:14 97 Nasal Cannula 3.0 32 11/12/16 19:00 84 14 103/73 100 Nasal Cannula 2.0 11/12/16 18:00 92/44 11/12/16 18:00 84 16 92/44 100 Nasal Cannula 2.0 11/12/16 17:00 86 18 95/37 100 Nasal Cannula 2.0 11/12/16 16:00 97.2 88 18 88/65 100 Nasal Cannula 2.0 11/12/16 16:00 88/65 11/12/16 16:00 88 11/12/16 15:00 87 16 92/46 100 Nasal Cannula 2.0 11/12/16 14:00 87 17 86/34 100 Nasal Cannula 2.0 11/12/16 13:00 89 19 89/63 100 Nasal Cannula 2.0 11/12/16 12:33 98/44 11/12/16 12:00 88 11/12/16 12:00 98.1 88 21 98/44 99 Nasal Cannula 2.0 11/12/16 11:30 92/56 11/12/16 11:00 88 20 92/56 99 Nasal Cannula 2.0 Intake and Output 11/12/16 11/13/16 19:00 07:00 Intake Total 1325 ml 720 ml Output Total 1030 ml 450 ml Balance 295 ml 270 ml Intake Oral 375 ml 330 ml IV Total 225 ml 300 ml Blood Product 725 ml Other 90 ml Output Urine Total 880 ml 150 ml Stool Total 300 ml Emesis 150 ml # Voids 80 # Bowel Movements 8 Laboratory Tests 11/12/16 18:03: White Blood Count 10.7, Red Blood Count 2.44L, Hemoglobin 7.7L, Hematocrit 22.2L , Mean Corpuscular Volume 91, Mean Corpuscular Hemoglobin 31.5H, Mean Corpuscular Hemoglobin Concent 34.5, Red Cell Distribution Width 13.5, Platelet Count 115L, Mean Platelet Volume 8.4, Neutrophils (%) (Auto) , Lymphocytes (%) ( Auto) , Monocytes (%) (Auto) , Eosinophils (%) (Auto) , Basophils (%) (Auto) , Differential Total Cells Counted 100, Neutrophils % (Manual) 81H, Lymphocytes % (Manual) 18L, Monocytes % (Manual) 0L, Eosinophils % (Manual) 1, Basophils % ( Manual) 0, Band Neutrophils 0, Platelet Estimate DecreasedL, Platelet Morphology Normal, Hypochromasia 1+ 11/13/16 03:40: White Blood Count 10.3, Red Blood Count 2.27L, Hemoglobin 7.1L, Hematocrit 20.7L , Mean Corpuscular Volume 92, Mean Corpuscular Hemoglobin 31.5H, Mean Corpuscular Hemoglobin Concent 34.4, Red Cell Distribution Width 14.3, Platelet Count 126L, Mean Platelet Volume 8.4, Neutrophils (%) (Auto) , Lymphocytes (%) ( Auto) , Monocytes (%) (Auto) , Eosinophils (%) (Auto) , Basophils (%) (Auto) , Sodium Level 137, Potassium Level 4.8, Chloride Level 95L, Carbon Dioxide Level 19L, Anion Gap 23H, Blood Urea Nitrogen 96#H, Creatinine 7.0H, Estimat Glomerular Filtration Rate 6.1, Glucose Level 178H, Uric Acid 8.0H, Calcium Level 8.0L, Phosphorus Level 6.8H, Magnesium Level 2.0, Total Bilirubin 0.8, Aspartate Amino Transf (AST/SGOT) 32, Alanine Aminotransferase (ALT/SGPT) 5, Alkaline Phosphatase 53, Troponin I 7.88*H, C-Reactive Protein, Quantitative 6.1H, Pro-B-Type Natriuretic Peptide 55276L, Total Protein 5.0L, Albumin 3.0L, Globulin 2.0, Albumin/Globulin Ratio 1.5 Height (Feet): 5 Height (Inches): 0.00 Weight (Pounds): 170 General Appearance: alert EENT: normal ENT inspection Neck: supple Cardiovascular: normal rate Respiratory/Chest: decreased breath sounds Abdomen: normal bowel sounds, non tender, soft Extremities: non-tender DEBRA DASH Nov 13, 2016 10:35
--- NOTE | 2016-11-13 12:00 | Diagnostic Imaging Report ---
Indication: SOB Technique: One view of the chest Comparison: 11/11/2016 Findings: Are remains enlarged. The left hemidiaphragm is partially obscured, pleural and/or parenchymal disease at the left lung base not completely excludable. Is less optimal inspiration with crowding of vascular markings. There is mild interstitial congestion and bronchial wall thickening. This appears increased from the prior study. Impression: Suspect increasing interstitial congestion and possible left basilar pleural and/or parenchymal disease, over 2 days
[2016-11-13 12:07] LABS: BASOPHILS % (AUTO) 0.6 % (0.0-2.0); EOSINOPHILS % (AUTO) 0.4 % (0.0-3.0); LYMPHOCYTES % (AUTO) 12.1 % (20.0-45.0); MEAN CORPUSCULAR HEMOGLOBIN 31.1 PG (27.0-31.0); MEAN CORPUSCULAR HGB CONC 34.7 G/DL (32.0-36.0); MEAN CORPUSCULAR VOLUME 90 FL (80-99); MEAN PLATELET VOLUME 9.2 FL (6.5-10.1); MONOCYTES % (AUTO) 7.4 % (1.0-10.0); NEUTROPHILS % (AUTO) 79.5 % (45.0-75.0); PLATELET COUNT 119 K/UL (150-450); RED BLOOD COUNT 2.91 M/UL (4.20-5.40); RED CELL DISTRIBUTION WIDTH 13.2 % (11.6-14.8); WHITE BLOOD COUNT 12.5 K/UL (4.8-10.8)
--- NOTE | 2016-11-13 18:24 | Cardiology Progress Note ---
Assessment/Plan Assessment/Plan nstemi gi bleed anemia esrd hs of tx now on hd cad s/p cabg 8 years ago anemia pacemaker implantation hx obesity trop peak 7.8 this am will need to trend needs cath eventualy is off heparin due to gi bleed on bb and statin off Ecotrin due to gi bleed ekg paced and uninterpreted needs transfer to cath facility when hemodynamically stable and once gi bleed issue addressed she will not be able to take any antiplat agent or anticoagulants until gi bleed source if treated sx improved to day with prbc tx message left with dr chaudhary to discuss bp low side will need dialysis Subjective Cardiovascular: Reports: chest pain - resolved after trasfusion , Denies: lightheadedness Respiratory: Reports: SOB with excertion, shortness of breath Gastrointestinal/Abdominal: Denies: abdominal pain Genitourinary: Denies: burning Objective Last 24 Hour Vital Signs Date Time Temp Pulse Resp B/P Pulse Ox O2 Delivery O2 Flow Rate FiO2 11/13/16 18:00 82 17 91/50 100 Nasal Cannula 2.0 11/13/16 18:00 91/50 11/13/16 17:00 86 20 101/53 100 Nasal Cannula 2.0 11/13/16 16:34 97.5 11/13/16 16:00 85 11/13/16 16:00 97.5 85 16 98/56 100 Nasal Cannula 2.0 11/13/16 15:00 88 19 96/50 98 Nasal Cannula 2.0 11/13/16 14:00 84 15 100/47 100 Nasal Cannula 2.0 11/13/16 13:00 86 18 93/56 100 Nasal Cannula 2.0 11/13/16 12:15 107/57 11/13/16 12:15 107/57 11/13/16 12:00 88 11/13/16 12:00 97.0 85 21 107/57 99 Nasal Cannula 2.0 11/13/16 12:00 97.4 18 106/56 100 Nasal Cannula 2.0 11/13/16 12:00 Nasal Cannula 2.0 11/13/16 11:00 85 16 108/81 100 Nasal Cannula 2.0 11/13/16 10:00 85 17 102/49 100 Nasal Cannula 2.0 11/13/16 09:00 81 14 114/60 100 Nasal Cannula 2.0 11/13/16 09:00 81 114/60 11/13/16 08:45 Nasal Cannula 2.0 11/13/16 08:40 97.6 79 20 106/59 100 Nasal Cannula 2.0 11/13/16 08:30 116/59 11/13/16 08:03 116/59 11/13/16 08:00 85 11/13/16 08:00 97.5 85 18 116/59 94 Nasal Cannula 2.0 11/13/16 07:55 97.0 11/13/16 07:28 105/70 11/13/16 07:00 85 20 114/60 100 Nasal Cannula 2.0 11/13/16 06:30 Nasal Cannula 1.0 24 11/13/16 06:30 93 Nasal Cannula 1.0 24 11/13/16 06:30 79 20 Nasal Cannula 1.0 24 11/13/16 06:00 115/65 11/13/16 06:00 80 14 105/62 100 Nasal Cannula 2.0 11/13/16 05:00 82 20 113/49 100 Nasal Cannula 2.0 11/13/16 04:00 83 11/13/16 04:00 97.0 85 16 93/49 100 Nasal Cannula 2.0 11/13/16 03:00 70 18 85/47 100 Nasal Cannula 2.0 11/13/16 02:00 79 14 91/55 100 Nasal Cannula 2.0 11/13/16 01:00 79 14 94/52 100 Nasal Cannula 2.0 11/13/16 00:00 83 11/13/16 00:00 83 17 87/48 100 Nasal Cannula 2.0 11/12/16 23:00 97.9 84 14 92/61 100 Nasal Cannula 2.0 11/12/16 22:00 84 14 94/61 100 Nasal Cannula 2.0 11/12/16 21:00 80 90/59 11/12/16 21:00 85 14 92/59 100 Nasal Cannula 2.0 11/12/16 20:00 98.1 84 14 90/38 100 Nasal Cannula 2.0 11/12/16 20:00 84 11/12/16 19:15 Nasal Cannula 3.0 32 11/12/16 19:14 84 18 Nasal Cannula 3.0 11/12/16 19:14 97 Nasal Cannula 3.0 32 11/12/16 19:00 84 14 103/73 100 Nasal Cannula 2.0 General Appearance: no apparent distress, alert Neck: supple Cardiovascular: normal rate, regular rhythm Respiratory/Chest: lungs clear, normal breath sounds Abdomen: normal bowel sounds, non tender, soft Extremities: trace edema Intake and Output 11/12/16 11/13/16 19:00 07:00 Intake Total 1325 ml 720 ml Output Total 1030 ml 450 ml Balance 295 ml 270 ml Intake Oral 375 ml 330 ml IV Total 225 ml 300 ml Blood Product 725 ml Other 90 ml Output Urine Total 880 ml 150 ml Stool Total 300 ml Emesis 150 ml # Voids 80 # Bowel Movements 5 Laboratory Tests Test 11/13/16 03:40 11/13/16 11:45 White Blood Count 10.3 K/UL (4.8-10.8) 12.5 K/UL (4.8-10.8) H Red Blood Count 2.27 M/UL (4.20-5.40) L 2.91 M/UL (4.20-5.40) L Hemoglobin 7.1 G/DL (12.0-16.0) L 9.0 G/DL (12.0-16.0) L Hematocrit 20.7 % (37.0-47.0) L 26.1 % (37.0-47.0) L Mean Corpuscular Volume 92 FL (80-99) 90 FL (80-99) Mean Corpuscular Hemoglobin 31.5 PG (27.0-31.0) H 31.1 PG (27.0-31.0) H Mean Corpuscular Hemoglobin Concent 34.4 G/DL (32.0-36.0) 34.7 G/DL (32.0-36.0) Red Cell Distribution Width 14.3 % (11.6-14.8) 13.2 % (11.6-14.8) Platelet Count 126 K/UL (150-450) L 119 K/UL (150-450) L Mean Platelet Volume 8.4 FL (6.5-10.1) 9.2 FL (6.5-10.1) Neutrophils (%) (Auto) % (45.0-75.0) 79.5 % (45.0-75.0) H Lymphocytes (%) (Auto) % (20.0-45.0) 12.1 % (20.0-45.0) L Monocytes (%) (Auto) % (1.0-10.0) 7.4 % (1.0-10.0) Eosinophils (%) (Auto) % (0.0-3.0) 0.4 % (0.0-3.0) Basophils (%) (Auto) % (0.0-2.0) 0.6 % (0.0-2.0) Sodium Level 137 mEQ/L (135-145) Potassium Level 4.8 mEQ/L (3.4-4.9) Chloride Level 95 mEQ/L (98-107) L Carbon Dioxide Level 19 mEQ/L (20-30) L Anion Gap 23 (5-15) H Blood Urea Nitrogen 96 mg/dL (7-23) #H Creatinine 7.0 mg/dL (0.5-0.9) H Estimat Glomerular Filtration Rate 6.1 mL/min (>60) Glucose Level 178 mg/dL (74-106) H Uric Acid 8.0 mg/dL (3.0-7.5) H Calcium Level 8.0 mg/dL (8.6-10.2) L Phosphorus Level 6.8 mg/dL (2.5-4.8) H Magnesium Level 2.0 mg/dL (1.7-2.5) Total Bilirubin 0.8 mg/dL (0.0-1.2) Aspartate Amino Transf (AST/SGOT) 32 U/L (5-40) Alanine Aminotransferase (ALT/SGPT) 5 U/L (3-33) Alkaline Phosphatase 53 U/L (35-104) Troponin I 7.88 ng/mL (<=0.30) *H C-Reactive Protein, Quantitative 6.1 mg/dL (< 0.5) H Pro-B-Type Natriuretic Peptide 69563 pg/mL (0-125) H Total Protein 5.0 g/dL (6.6-8.7) L Albumin 3.0 g/dL (3.5-5.2) L Globulin 2.0 g/dL Albumin/Globulin Ratio 1.5 (1.0-2.7) DREW HUSAIN 20, 2017 18:24
[2016-11-13] MEDS ORDERED: Tubing Blood Filter IV ONE (18:55)
--- NOTE | 2016-11-13 19:44 | Internal Med Progress Note ---
Subjective Date of Service: Nov 13, 2016 Physician Name Starkey,Enrike Attending Physician David Snyder MD Current Medications Medications (Trade) Dose Ordered Sig/Yarelis Route PRN Reason Start Time Stop Time Status Last Admin Dose Admin Acetaminophen (Tylenol) 650 mg Q4H PRN ORAL fever 11/12/16 15:45 12/12/16 15:44 11/13/16 07:31 Albuterol/ Ipratropium (DuoNeb 0.5-3(2.5)mg/3ml) 3 ml Q6H PRN HHN dyspnea 11/12/16 15:45 11/17/16 15:44 Atorvastatin Calcium (Lipitor) 20 mg BEDTIME ORAL 11/12/16 21:00 12/12/16 20:59 11/12/16 21:27 Clonidine HCl (Catapres) 0.1 mg Q4H PRN ORAL For High Blood Pressure 11/12/16 15:45 12/12/16 15:44 Dextrose (Dextrose 50%) STAT PRN IV Hypoglycemia 11/12/16 15:45 12/12/16 15:44 Insulin Aspart (NovoLOG) BEFORE MEALS AND HS SUBQ 11/12/16 16:30 12/12/16 16:29 11/13/16 16:40 Metoprolol Tartrate (Lopressor) 50 mg Q12HR ORAL 11/12/16 21:00 12/12/16 20:59 Morphine Sulfate (Morphine Sulfate) 1 mg Q4H PRN IVP For Pain 11/12/16 16:00 11/19/16 15:59 11/13/16 15:36 Nitroglycerin (Nitro-Bid) 1 inch TID@0600,1200,1800 TOPIC 11/12/16 18:00 12/12/16 17:59 11/13/16 12:15 Nitroglycerin (Ntg) 0.4 mg Q5M PRN SL Prn Chest Pain 11/12/16 15:35 12/12/16 15:34 11/13/16 08:30 Norepinephrine Bitartrate 4 mg/ Dextrose 250 ml @ 0 mls/hr Q24H IV 11/12/16 16:00 12/12/16 15:59 Ondansetron HCl (Zofran) 4 mg Q6H PRN IVP Nausea & Vomiting 11/12/16 15:45 12/12/16 15:44 Pantoprazole/ Sodium Chloride (Protonix/Sodium Chloride) 250 ml @ 25 mls/hr Q10H IV 11/12/16 22:00 12/12/16 21:59 11/13/16 18:27 Zolpidem Tartrate (Ambien) 5 mg HSPRN PRN ORAL Insomnia 11/12/16 15:45 12/12/16 15:44 Allergies: Coded Allergies: No Known Allergies (Unverified , 11/09/16) ROS Limited/Unobtainable: No Constitutional: Reports: no symptoms HEENT: Reports: no symptoms Cardiovascular: Reports: chest pain Respiratory: Reports: no symptoms Gastrointestinal/Abdominal: Reports: black stools, blood in stool, other - hematemesis, rectal bleeding Genitourinary: Reports: no symptoms Neurologic/Psychiatric: Reports: no symptoms Subjective 56 YO f admitted with Chest pain. Now Hematemesis and GI bleed due to heparin. ICU. [facility] Snyder. Objective Last Vital Signs Date Time Temp Pulse Resp B/P Pulse Ox O2 Delivery O2 Flow Rate FiO2 11/13/16 19:30 85 18 Nasal Cannula 2.0 28 11/13/16 19:30 99 11/13/16 19:00 102/60 11/13/16 16:34 97.5 Laboratory Tests Test 11/13/16 03:40 11/13/16 11:45 White Blood Count 10.3 K/UL (4.8-10.8) 12.5 K/UL (4.8-10.8) H Red Blood Count 2.27 M/UL (4.20-5.40) L 2.91 M/UL (4.20-5.40) L Hemoglobin 7.1 G/DL (12.0-16.0) L 9.0 G/DL (12.0-16.0) L Hematocrit 20.7 % (37.0-47.0) L 26.1 % (37.0-47.0) L Mean Corpuscular Volume 92 FL (80-99) 90 FL (80-99) Mean Corpuscular Hemoglobin 31.5 PG (27.0-31.0) H 31.1 PG (27.0-31.0) H Mean Corpuscular Hemoglobin Concent 34.4 G/DL (32.0-36.0) 34.7 G/DL (32.0-36.0) Red Cell Distribution Width 14.3 % (11.6-14.8) 13.2 % (11.6-14.8) Platelet Count 126 K/UL (150-450) L 119 K/UL (150-450) L Mean Platelet Volume 8.4 FL (6.5-10.1) 9.2 FL (6.5-10.1) Neutrophils (%) (Auto) % (45.0-75.0) 79.5 % (45.0-75.0) H Lymphocytes (%) (Auto) % (20.0-45.0) 12.1 % (20.0-45.0) L Monocytes (%) (Auto) % (1.0-10.0) 7.4 % (1.0-10.0) Eosinophils (%) (Auto) % (0.0-3.0) 0.4 % (0.0-3.0) Basophils (%) (Auto) % (0.0-2.0) 0.6 % (0.0-2.0) Sodium Level 137 mEQ/L (135-145) Potassium Level 4.8 mEQ/L (3.4-4.9) Chloride Level 95 mEQ/L (98-107) L Carbon Dioxide Level 19 mEQ/L (20-30) L Anion Gap 23 (5-15) H Blood Urea Nitrogen 96 mg/dL (7-23) #H Creatinine 7.0 mg/dL (0.5-0.9) H Estimat Glomerular Filtration Rate 6.1 mL/min (>60) Glucose Level 178 mg/dL (74-106) H Uric Acid 8.0 mg/dL (3.0-7.5) H Calcium Level 8.0 mg/dL (8.6-10.2) L Phosphorus Level 6.8 mg/dL (2.5-4.8) H Magnesium Level 2.0 mg/dL (1.7-2.5) Total Bilirubin 0.8 mg/dL (0.0-1.2) Aspartate Amino Transf (AST/SGOT) 32 U/L (5-40) Alanine Aminotransferase (ALT/SGPT) 5 U/L (3-33) Alkaline Phosphatase 53 U/L (35-104) Troponin I 7.88 ng/mL (<=0.30) *H C-Reactive Protein, Quantitative 6.1 mg/dL (< 0.5) H Pro-B-Type Natriuretic Peptide 19720 pg/mL (0-125) H Total Protein 5.0 g/dL (6.6-8.7) L Albumin 3.0 g/dL (3.5-5.2) L Globulin 2.0 g/dL Albumin/Globulin Ratio 1.5 (1.0-2.7) Intake and Output 11/12/16 11/13/16 19:00 07:00 Intake Total 1325 ml 720 ml Output Total 1030 ml 450 ml Balance 295 ml 270 ml Intake Oral 375 ml 330 ml IV Total 225 ml 300 ml Blood Product 725 ml Other 90 ml Output Urine Total 880 ml 150 ml Stool Total 300 ml Emesis 150 ml # Voids 80 # Bowel Movements 5 Objective General Appearance: WD/WN, no apparent distress EENT: PERRL/EOMI, normal ENT inspection Neck: non-tender, normal alignment, supple, normal inspection Cardiovascular: normal peripheral pulses, regular rhythm, no gallop/murmur, no JVD Respiratory/Chest: chest wall non-tender, lungs clear, normal breath sounds, no respiratory distress, no accessory muscle use Abdomen: normal bowel sounds, non tender, soft, no organomegaly, no mass Neurologic: lei maker II-XII grossly normal, no motor/sensory deficits Skin: normal pigmentation, warm/dry Assessment/Plan Problem List: (1) Elevated troponin Assessment & Plan: see cardiology note. Will require cardiac cath (2) CAD (coronary artery disease) (3) Diabetes mellitus Assessment & Plan: Cont starlix and novolog sliding scale. (4) Hypertension Assessment & Plan: Cont metoprolol (5) Kidney transplant recipient (6) ESRD (end stage renal disease) on dialysis Assessment & Plan: See nephrology note. S/P Hemodialysis today 11/13/18. (7) ACS (acute coronary syndrome) (8) Hematemesis Assessment & Plan: Due to heparin; D/C heparin drip. See GI note. Endoscopy when patient stable. (9) Melena (10) Hypotensive episode Assessment & Plan: Due to GI bleed. (11) Anemia, blood loss Assessment & Plan: ? due to heparin? D/C heparin drip. S/P transfusion 2 Units PRBC today, 11/12/16. 4 units total. (12) NSTEMI (non-ST elevated myocardial infarction) Assessment & Plan: Hold heparin due to GI bleed. See cardiology note. (13) Gastrointestinal hemorrhage Assessment & Plan: On proton pump inhibitor drip. Endoscopy and colonoscopy on hold due to acute myocardial infarction. Status: unchanged Assessment/Plan Prognosis is guarded. ENRIKE STARKEY Nov 13, 2016 19:44
--- NOTE | 2016-11-13 20:15 | Cardiology Report ---
APPROVED REPORT EXAM: Two-dimensional and M-mode echocardiogram with Doppler and color Doppler. INDICATION Congestive Heart Failure M-Mode DIMENSIONS IVSd1.2 (0.7-1.1cm)Left Atrium (MM)4.2 (1.6-4.0cm) LVDd6.9 (3.5-5.6cm)Aortic Root3.0 (2.0-3.7cm) PWd1.0 (0.7-1.1cm)Aortic Cusp Exc.1.9 (1.5-2.0cm) LVDs5.3 (2.5-4.0cm) PWs1.2 cm Technically difficult study due to poor acoustical windows. Left ventricular mild enlargement. syskineti distal infero rwall distal spetumadn and apex Left ventricular ejection fraction estimated to be 40%. Mild left ventricular hypertrophy. Small posterior pericardial effusion. Mild left atrial enlargement. Right cardiac chamber sizes are within normal limits. Focal aortic valve sclerosis with adequate cusp excursion. Thickened mitral valve leaflets with normal excursion. Mitral annulus and aortic root calcification. Pulmonic valve not well visualized. Normal tricuspid valve structure. IVC at normal size with physiologic collapse. Pacemaker wire present in the right side chambers. A color flow and spectral Doppler study was performed and revealed: Trace aortic regurgitation. Mild mitral regurgitation. Mitral diastolic velocities suggest reduced left ventricular relaxation c/w mild LV diastolic dysfunction (Grade I ). Moderate tricuspid regurgitation. Tricuspid systolic velocities suggests peak right ventricular systolic pressure of 45 mmHg, consistent with borderline moderate pulmonary hypertension. Trace pulmonic regurgitation present.
[2016-11-13] MEDS: Atorvastatin 20mg tab ORAL SCH (21:03)
[2016-11-14] VITALS (19 sets, daily range): BP systolic 88–122; BP diastolic 37–67
[2016-11-14] MEDS: Pantoprazole 80 MG in NS 250 ML IV SCH ×2 (04:50→14:19)
[2016-11-14 06:24] LABS: BASOPHILS % (AUTO) 0.5 % (0.0-2.0); EOSINOPHILS % (AUTO) 0.8 % (0.0-3.0); LYMPHOCYTES % (AUTO) 16.3 % (20.0-45.0); MEAN CORPUSCULAR HEMOGLOBIN 31.3 PG (27.0-31.0); MEAN CORPUSCULAR HGB CONC 34.4 G/DL (32.0-36.0); MEAN CORPUSCULAR VOLUME 91 FL (80-99); MEAN PLATELET VOLUME 9.8 FL (6.5-10.1); MONOCYTES % (AUTO) 8.9 % (1.0-10.0); NEUTROPHILS % (AUTO) 73.4 % (45.0-75.0); PLATELET COUNT 131 K/UL (150-450); RED BLOOD COUNT 2.65 M/UL (4.20-5.40); RED CELL DISTRIBUTION WIDTH 13.3 % (11.6-14.8); WHITE BLOOD COUNT 10.9 K/UL (4.8-10.8)
[2016-11-14] MEDS: Nitroglycerin 2% oint pkt TOPIC SCH ×3 (06:28→18:18)
[2016-11-14] MEDS: NovoLOG Insulin Flexpen SUBQ SCH ×5 (06:30→21:04)
[2016-11-14 06:39] LABS: ALBUMIN/GLOBULIN RATIO 1.2 (1.0-2.7); CALCIUM 8.6 mg/dL (8.6-10.2); CREATININE 5.1 mg/dL (0.5-0.9); GLOMERULAR FILTRATION RATE 8.8 mL/min (>60); MAGNESIUM 1.8 mg/dL (1.7-2.5); POTASSIUM 3.9 mEQ/L (3.4-4.9); TOTAL PROTEIN 5.5 g/dL (6.6-8.7)
--- NOTE | 2016-11-14 09:31 | Cardiology Progress Note ---
Assessment/Plan Assessment/Plan nstemi gi bleed anemia esrd hs of tx now on hd cad s/p cabg 8 years ago anemia pacemaker implantation hx obesity trop peak 7.8 this am will need to trend needs cath eventualy is off heparin due to gi bleed on bb and statin off Ecotrin due to gi bleed ekg paced and uninterpreted needs transfer to cath facility when hemodynamically stable and once gi bleed issue addressed she will not be able to take any antiplat agent or anticoagulants for cardiac issues until gi bleed source is treated d/w dr chaudhary risk benefit favor performing gi workup planned to have egd today sx improved with prbc tx yest will need dialysis Subjective Cardiovascular: Denies: chest pain, lightheadedness, palpitations Respiratory: Reports: SOB with excertion - just movign out o fbed , Denies: shortness of breath Gastrointestinal/Abdominal: Denies: abdominal pain, nausea, vomiting Genitourinary: Denies: burning Subjective via [employer] speaking staff is better after prbc tx yest Objective Last 24 Hour Vital Signs Date Time Temp Pulse Resp B/P Pulse Ox O2 Delivery O2 Flow Rate FiO2 11/14/16 08:00 82 11/14/16 08:00 98.0 82 19 100/59 100 Nasal Cannula 2.0 11/14/16 07:00 81 20 102/56 100 Nasal Cannula 2.0 11/14/16 06:50 Nasal Cannula 2.0 28 11/14/16 06:50 69 18 Nasal Cannula 2.0 28 11/14/16 06:50 100 Nasal Cannula 2.0 28 11/14/16 06:28 98/54 11/14/16 06:00 70 18 98/54 100 Nasal Cannula 2.0 11/14/16 05:00 72 21 91/47 100 Nasal Cannula 2.0 11/14/16 04:00 97.6 71 18 90/37 100 Nasal Cannula 2.0 11/14/16 04:00 71 11/14/16 03:00 70 22 88/43 100 Nasal Cannula 2.0 11/14/16 02:00 70 18 92/67 100 Nasal Cannula 2.0 11/14/16 01:00 72 25 90/57 99 Nasal Cannula 2.0 11/14/16 00:00 97.8 72 21 94/62 99 Nasal Cannula 2.0 11/14/16 00:00 72 3/20/17 23:00 78 19 98/58 99 Nasal Cannula 2.0 11/13/16 22:00 80 18 111/65 100 Nasal Cannula 2.0 11/13/16 21:03 87 109/62 11/13/16 21:00 89 18 109/62 98 Nasal Cannula 2.0 11/13/16 20:00 98.6 82 19 103/55 100 Nasal Cannula 2.0 11/13/16 20:00 84 11/13/16 19:30 85 18 Nasal Cannula 2.0 28 11/13/16 19:30 99 Nasal Cannula 2.0 28 11/13/16 19:30 Nasal Cannula 2.0 28 11/13/16 19:00 84 18 102/60 100 Nasal Cannula 2.0 11/13/16 18:00 82 17 91/50 100 Nasal Cannula 2.0 11/13/16 18:00 91/50 11/13/16 17:00 86 20 101/53 100 Nasal Cannula 2.0 11/13/16 16:34 97.5 11/13/16 16:00 85 11/13/16 16:00 97.5 85 16 98/56 100 Nasal Cannula 2.0 11/13/16 15:00 88 19 96/50 98 Nasal Cannula 2.0 11/13/16 14:00 84 15 100/47 100 Nasal Cannula 2.0 11/13/16 13:00 86 18 93/56 100 Nasal Cannula 2.0 11/13/16 12:15 107/57 11/13/16 12:15 107/57 11/13/16 12:00 88 11/13/16 12:00 97.0 85 21 107/57 99 Nasal Cannula 2.0 11/13/16 12:00 97.4 18 106/56 100 Nasal Cannula 2.0 11/13/16 12:00 Nasal Cannula 2.0 11/13/16 11:00 85 16 108/81 100 Nasal Cannula 2.0 11/13/16 10:00 85 17 102/49 100 Nasal Cannula 2.0 General Appearance: no apparent distress, alert Cardiovascular: normal rate, regular rhythm Respiratory/Chest: lungs clear, normal breath sounds, decreased breath sounds - left base Abdomen: normal bowel sounds, non tender, soft Extremities: no swelling Intake and Output 11/13/16 11/14/16 19:00 07:00 Intake Total 870 ml 360 ml Output Total 450 ml 150 ml Balance 420 ml 210 ml Intake Oral 150 ml 60 ml IV Total 300 ml 300 ml Blood Product 350 ml Other 70 ml Output Urine Total 450 ml 150 ml Hemodialysis UF 0 ml # Voids 2 Laboratory Tests Test 11/13/16 11:45 11/14/16 05:00 White Blood Count 12.5 K/UL (4.8-10.8) H 10.9 K/UL (4.8-10.8) H Red Blood Count 2.91 M/UL (4.20-5.40) L 2.65 M/UL (4.20-5.40) L Hemoglobin 9.0 G/DL (12.0-16.0) L 8.3 G/DL (12.0-16.0) L Hematocrit 26.1 % (37.0-47.0) L 24.1 % (37.0-47.0) L Mean Corpuscular Volume 90 FL (80-99) 91 FL (80-99) Mean Corpuscular Hemoglobin 31.1 PG (27.0-31.0) H 31.3 PG (27.0-31.0) H Mean Corpuscular Hemoglobin Concent 34.7 G/DL (32.0-36.0) 34.4 G/DL (32.0-36.0) Red Cell Distribution Width 13.2 % (11.6-14.8) 13.3 % (11.6-14.8) Platelet Count 119 K/UL (150-450) L 131 K/UL (150-450) L Mean Platelet Volume 9.2 FL (6.5-10.1) 9.8 FL (6.5-10.1) Neutrophils (%) (Auto) 79.5 % (45.0-75.0) H 73.4 % (45.0-75.0) Lymphocytes (%) (Auto) 12.1 % (20.0-45.0) L 16.3 % (20.0-45.0) L Monocytes (%) (Auto) 7.4 % (1.0-10.0) 8.9 % (1.0-10.0) Eosinophils (%) (Auto) 0.4 % (0.0-3.0) 0.8 % (0.0-3.0) Basophils (%) (Auto) 0.6 % (0.0-2.0) 0.5 % (0.0-2.0) Sodium Level 133 mEQ/L (135-145) L Potassium Level 3.9 mEQ/L (3.4-4.9) Chloride Level 91 mEQ/L (98-107) L Carbon Dioxide Level 26 mEQ/L (20-30) Anion Gap 16 (5-15) H Blood Urea Nitrogen 50 mg/dL (7-23) #H Creatinine 5.1 mg/dL (0.5-0.9) H Estimat Glomerular Filtration Rate 8.8 mL/min (>60) Glucose Level 176 mg/dL (74-106) H Calcium Level 8.6 mg/dL (8.6-10.2) Phosphorus Level 5.0 mg/dL (2.5-4.8) H Magnesium Level 1.8 mg/dL (1.7-2.5) Total Bilirubin 0.9 mg/dL (0.0-1.2) Aspartate Amino Transf (AST/SGOT) 28 U/L (5-40) Alanine Aminotransferase (ALT/SGPT) 5 U/L (3-33) Alkaline Phosphatase 64 U/L (35-104) Total Protein 5.5 g/dL (6.6-8.7) L Albumin 3.1 g/dL (3.5-5.2) L Globulin 2.4 g/dL Albumin/Globulin Ratio 1.2 (1.0-2.7) DREW HUSAIN Nov 14, 2016 09:31
--- NOTE | 2016-11-14 10:46 | Pulmonolgy Critical Care Note ---
Critical Care - Asmt/Plan Problems: (1) Hematemesis (2) Hypotensive episode (3) Melena (4) ACS (acute coronary syndrome) (5) ESRD (end stage renal disease) on dialysis (6) Diabetes mellitus (7) Anemia Respiratory: monitor respiratory rate, adjust FIO2, CXR Cardiac: continue to monitor HR/BP, other - off heparin, aspirin becuase of GI bleeding Renal: F/U I&O Infectious Disease: check cultures Gastrointestinal: continue feedings/current rate Endocrine: monitor blood sugar Hematologic: monitor H/H Neurologic: PRN Ativan Affect: PRN ativan Prophylaxis: Heparin Notes Reviewed: industrial order clerk, cardio Discussed with: nurses, case investigatoroperating room manager - Objective Last 24 Hour Vital Signs Date Time Temp Pulse Resp B/P Pulse Ox O2 Delivery O2 Flow Rate FiO2 11/14/16 10:00 73 19 103/56 100 Nasal Cannula 2.0 11/14/16 09:00 72 20 111/59 100 Nasal Cannula 2.0 11/14/16 08:00 82 11/14/16 08:00 98.0 82 19 100/59 100 Nasal Cannula 2.0 11/14/16 07:00 81 20 102/56 100 Nasal Cannula 2.0 11/14/16 06:50 Nasal Cannula 2.0 28 11/14/16 06:50 69 18 Nasal Cannula 2.0 28 11/14/16 06:50 100 Nasal Cannula 2.0 28 11/14/16 06:28 98/54 11/14/16 06:00 70 18 98/54 100 Nasal Cannula 2.0 11/14/16 05:00 72 21 91/47 100 Nasal Cannula 2.0 11/14/16 04:00 97.6 71 18 90/37 100 Nasal Cannula 2.0 11/14/16 04:00 71 11/14/16 03:00 70 22 88/43 100 Nasal Cannula 2.0 11/14/16 02:00 70 18 92/67 100 Nasal Cannula 2.0 11/14/16 01:00 72 25 90/57 99 Nasal Cannula 2.0 11/14/16 00:00 97.8 72 21 94/62 99 Nasal Cannula 2.0 11/14/16 00:00 72 11/13/16 23:00 78 19 98/58 99 Nasal Cannula 2.0 11/13/16 22:00 80 18 111/65 100 Nasal Cannula 2.0 11/13/16 21:03 87 109/62 11/13/16 21:00 89 18 109/62 98 Nasal Cannula 2.0 11/13/16 20:00 98.6 82 19 103/55 100 Nasal Cannula 2.0 11/13/16 20:00 84 11/13/16 19:30 85 18 Nasal Cannula 2.0 28 11/13/16 19:30 99 Nasal Cannula 2.0 28 11/13/16 19:30 Nasal Cannula 2.0 28 11/13/16 19:00 84 18 102/60 100 Nasal Cannula 2.0 11/13/16 18:00 82 17 91/50 100 Nasal Cannula 2.0 11/13/16 18:00 91/50 11/13/16 17:00 86 20 101/53 100 Nasal Cannula 2.0 11/13/16 16:34 97.5 11/13/16 16:00 85 11/13/16 16:00 97.5 85 16 98/56 100 Nasal Cannula 2.0 11/13/16 15:00 88 19 96/50 98 Nasal Cannula 2.0 11/13/16 14:00 84 15 100/47 100 Nasal Cannula 2.0 11/13/16 13:00 86 18 93/56 100 Nasal Cannula 2.0 11/13/16 12:15 107/57 11/13/16 12:15 107/57 11/13/16 12:00 88 11/13/16 12:00 97.0 85 21 107/57 99 Nasal Cannula 2.0 11/13/16 12:00 97.4 18 106/56 100 Nasal Cannula 2.0 11/13/16 12:00 Nasal Cannula 2.0 11/13/16 11:00 85 16 108/81 100 Nasal Cannula 2.0 Status: awake Condition: improving HEENT: atraumatic Lungs: clear Heart: HR/BP stable, HR/BP unstable Abdomen: non-tender, active bowel sounds Extremities: no C/C/E, edema Accucheck: 162 Critical Care - Subjective ICU Day: 3 Interval Events: no more bleeding FI02: 28 Sputum Amount: None Drips: NPO I&O: Intake and Output 11/13/16 11/14/16 19:00 07:00 Intake Total 870 ml 360 ml Output Total 450 ml 150 ml Balance 420 ml 210 ml Intake Oral 150 ml 60 ml IV Total 300 ml 300 ml Blood Product 350 ml Other 70 ml Output Urine Total 450 ml 150 ml Hemodialysis UF 0 ml # Voids 2 CXR: no change Labs: Laboratory Tests Test 11/13/16 11:45 11/14/16 05:00 White Blood Count 12.5 K/UL (4.8-10.8) H 10.9 K/UL (4.8-10.8) H Red Blood Count 2.91 M/UL (4.20-5.40) L 2.65 M/UL (4.20-5.40) L Hemoglobin 9.0 G/DL (12.0-16.0) L 8.3 G/DL (12.0-16.0) L Hematocrit 26.1 % (37.0-47.0) L 24.1 % (37.0-47.0) L Mean Corpuscular Volume 90 FL (80-99) 91 FL (80-99) Mean Corpuscular Hemoglobin 31.1 PG (27.0-31.0) H 31.3 PG (27.0-31.0) H Mean Corpuscular Hemoglobin Concent 34.7 G/DL (32.0-36.0) 34.4 G/DL (32.0-36.0) Red Cell Distribution Width 13.2 % (11.6-14.8) 13.3 % (11.6-14.8) Platelet Count 119 K/UL (150-450) L 131 K/UL (150-450) L Mean Platelet Volume 9.2 FL (6.5-10.1) 9.8 FL (6.5-10.1) Neutrophils (%) (Auto) 79.5 % (45.0-75.0) H 73.4 % (45.0-75.0) Lymphocytes (%) (Auto) 12.1 % (20.0-45.0) L 16.3 % (20.0-45.0) L Monocytes (%) (Auto) 7.4 % (1.0-10.0) 8.9 % (1.0-10.0) Eosinophils (%) (Auto) 0.4 % (0.0-3.0) 0.8 % (0.0-3.0) Basophils (%) (Auto) 0.6 % (0.0-2.0) 0.5 % (0.0-2.0) Sodium Level 133 mEQ/L (135-145) L Potassium Level 3.9 mEQ/L (3.4-4.9) Chloride Level 91 mEQ/L (98-107) L Carbon Dioxide Level 26 mEQ/L (20-30) Anion Gap 16 (5-15) H Blood Urea Nitrogen 50 mg/dL (7-23) #H Creatinine 5.1 mg/dL (0.5-0.9) H Estimat Glomerular Filtration Rate 8.8 mL/min (>60) Glucose Level 176 mg/dL (74-106) H Calcium Level 8.6 mg/dL (8.6-10.2) Phosphorus Level 5.0 mg/dL (2.5-4.8) H Magnesium Level 1.8 mg/dL (1.7-2.5) Total Bilirubin 0.9 mg/dL (0.0-1.2) Aspartate Amino Transf (AST/SGOT) 28 U/L (5-40) Alanine Aminotransferase (ALT/SGPT) 5 U/L (3-33) Alkaline Phosphatase 64 U/L (35-104) Total Protein 5.5 g/dL (6.6-8.7) L Albumin 3.1 g/dL (3.5-5.2) L Globulin 2.4 g/dL Albumin/Globulin Ratio 1.2 (1.0-2.7) EMILY LYONS Nov 14, 2016 10:45
--- NOTE | 2016-11-14 10:59 | Anethesia Preoperative Eval ---
Anesthesia Pre-op PMH/ROS General Date of Evaluation: Nov 14, 2016 Time of Evaluation: 13:00 Anesthesiologist: Kenneth ASA Score: ASA 4 Mallampati Score Class I : Soft palate, uvula, fauces, pillars visible Class II: Soft palate, uvula, fauces visible Class III: Soft palate, base of uvula visible Class IV: Only hard plate visible Mallampati Classification: Class II Surgeon: Renetta Diagnosis: GI bleed Surgical Procedure: EGD Family History: no anesthesia problems Allergies: Coded Allergies: No Known Allergies (Unverified , 11/09/16) Past Medical History Cardiovascular: Reports: CAD, HTN, NM - NSTEMI this admission, s/p CABG, arrhythmia - s/p PPM, other - CHF Gastrointestinal/Genitourinary: Reports: ESRD Endocrine: Reports: DM Hematology/Immune: Reports: anemia, bleeding disorder - GI bleed PMH Narrative: HTN, CAD (s/p CABG, PPM, NM this admission), CHF, DM, ESRD, anemia secondary to GI bleed PSxH Narrative: CABG, renal transplant Anesthesia Pre-op Phys. Exam Physician Exam Last Vital Signs Date Time Temp Pulse Resp B/P Pulse Ox O2 Delivery O2 Flow Rate FiO2 11/14/16 08:00 82 11/14/16 08:00 98.0 19 100/59 100 Nasal Cannula 2.0 11/14/16 06:50 28 Constitutional: NAD Neurologic: CN 2-12 intact Cardiovascular: RRR, no M/R/G Respiratory: CTA Gastrointestinal: S/NT/ND Airway Exam Mallampati Score: Class II MO: full ROM: full Anesthesia Pre-op A/P Labs Hematology Test 11/13/16 11:45 11/14/16 05:00 White Blood Count 12.5 K/UL (4.8-10.8) H 10.9 K/UL (4.8-10.8) H Red Blood Count 2.91 M/UL (4.20-5.40) L 2.65 M/UL (4.20-5.40) L Hemoglobin 9.0 G/DL (12.0-16.0) L 8.3 G/DL (12.0-16.0) L Hematocrit 26.1 % (37.0-47.0) L 24.1 % (37.0-47.0) L Mean Corpuscular Volume 90 FL (80-99) 91 FL (80-99) Mean Corpuscular Hemoglobin 31.1 PG (27.0-31.0) H 31.3 PG (27.0-31.0) H Mean Corpuscular Hemoglobin Concent 34.7 G/DL (32.0-36.0) 34.4 G/DL (32.0-36.0) Red Cell Distribution Width 13.2 % (11.6-14.8) 13.3 % (11.6-14.8) Platelet Count 119 K/UL (150-450) L 131 K/UL (150-450) L Mean Platelet Volume 9.2 FL (6.5-10.1) 9.8 FL (6.5-10.1) Neutrophils (%) (Auto) 79.5 % (45.0-75.0) H 73.4 % (45.0-75.0) Lymphocytes (%) (Auto) 12.1 % (20.0-45.0) L 16.3 % (20.0-45.0) L Monocytes (%) (Auto) 7.4 % (1.0-10.0) 8.9 % (1.0-10.0) Eosinophils (%) (Auto) 0.4 % (0.0-3.0) 0.8 % (0.0-3.0) Basophils (%) (Auto) 0.6 % (0.0-2.0) 0.5 % (0.0-2.0) Chemistry Test 11/14/16 05:00 Sodium Level 133 mEQ/L (135-145) L Potassium Level 3.9 mEQ/L (3.4-4.9) Chloride Level 91 mEQ/L (98-107) L Carbon Dioxide Level 26 mEQ/L (20-30) Anion Gap 16 (5-15) H Blood Urea Nitrogen 50 mg/dL (7-23) #H Creatinine 5.1 mg/dL (0.5-0.9) H Estimat Glomerular Filtration Rate 8.8 mL/min (>60) Glucose Level 176 mg/dL (74-106) H Calcium Level 8.6 mg/dL (8.6-10.2) Phosphorus Level 5.0 mg/dL (2.5-4.8) H Magnesium Level 1.8 mg/dL (1.7-2.5) Total Bilirubin 0.9 mg/dL (0.0-1.2) Aspartate Amino Transf (AST/SGOT) 28 U/L (5-40) Alanine Aminotransferase (ALT/SGPT) 5 U/L (3-33) Alkaline Phosphatase 64 U/L (35-104) Total Protein 5.5 g/dL (6.6-8.7) L Albumin 3.1 g/dL (3.5-5.2) L Globulin 2.4 g/dL Albumin/Globulin Ratio 1.2 (1.0-2.7) Studies Pre-op Studies: echo - EF = 45-50%, moderate tricuspid regurg, septal wall motion abnormality, diastolic dysfunction Risk Assessment & Plan Assessment: 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 Nov 14, 2016 10:59
--- NOTE | 2016-11-14 11:25 | Cardiology Report ---
APPROVED REPORT EKG Measurement Heart [id number] IN 224P49 [id number] Sinus rhythm with 1st degree AV block v pacing
--- NOTE | 2016-11-14 11:34 | Cardiology Report ---
APPROVED REPORT EKG Measurement Heart [id number] [place] 222P53 [id number] Sinus rhythm with 1st degree AV block v pacing
[2016-11-14] MEDS ORDERED: Nitroglycerin Subl 0.4mg tab (Bottle Of 25) SL PRN (11:35)
--- NOTE | 2016-11-14 11:47 | Cardiology Report ---
APPROVED REPORT EKG Measurement Heart [id number] [place] 230P66 [id number] sinus with v pacing
[2016-11-14] MEDS ORDERED: DuoNeb 0.5-3(2.5)mg/3ml neb HHN PRN (13:00)
[2016-11-14] MEDS ORDERED: NS 550ML IV ONE (13:00)
--- NOTE | 2016-11-14 13:02 | Pre-Procedure Note/Attestation ---
Pre-Procedure Note/Attestation Complete Prior to Procedure Planned Procedure: not applicable Procedure Narrative: egd Indications for Procedure Pre-Operative Diagnosis: gib Attestation I attest that I discussed the nature of the procedure; its benefits; risks and complications; and alternatives (and the risks and benefits of such alternatives ), prior to the procedure, with the patient (or the patient's legal outside sales representative insurance). I attest that, if there was a reasonable possibility of needing a blood transfusion, the patient (or the patient's legal outside sales representative insurance) was given the [facility] standardized written summary, pursuant to the Jewel Mis Blood Safety Act ([place] Health and Safety Code # 1645, as amended). I attest that I re-evaluated the patient just prior to the surgery and that there has been no change in the patient's H&P, except as documented below: DEBRA DASH Nov 14, 2016 13:02
--- NOTE | 2016-11-14 13:30 | Endoscopy Procedure Note ---
Endoscopy Procedure Note Indication for Procedure: gib Procedures Performed: EGD Operative Findings/Diagnosis: Specimen: yes Pt Tolerated Procedure Well: Yes Estimated Blood Loss: none Anesthesiologist: see chart Anesthesia: MAC Implant(s) used?: No 50 yrs or older w/o bx or poly: Not Applicable 10yrs. F/U not recommended: Not Applicable DEBRA DASH Nov 14, 2016 13:30
--- NOTE | 2016-11-14 13:35 | Immediate Post-Op Evaluation ---
Immediate Post-Op Evalulation Immediate Post-Op Evalulation Procedure: EGD Date of Evaluation: Nov 14, 2016 Time of Evaluation: 14:00 IV Fluids: 150 Blood Pressure Systolic: 122 Blood Pressure Diastolic: 73 Pulse Rate: 75 Respiratory Rate: 14 O2 Sat by Pulse Oximetry: 98 Temperature (Fahrenheit): 97.6 Pain Score (1-10): 0 Nausea: No Vomiting: No Complications No complication Patient Status: awake, patent, none Hydration Status: adequate Drug: None PARISH REYES M.D. Nov 14, 2016 13:35
--- NOTE | 2016-11-14 16:18 | General Progress Note ---
Assessment/Plan Status: unchanged Assessment/Plan Status: ESRD- ACS- with elevated troponin Severe Anemia- transfused GI bleed DM- HTN- Plan; NPO- Protonix drip- GI eval Optimize cardiac status- echo ej fx 45% Transfusion HD again in am monitor H&H and Renal parameters- per consultants per orders Subjective ROS Limited/Unobtainable: No Constitutional: Reports: malaise, weakness Allergies: Coded Allergies: No Known Allergies (Unverified , 11/09/16) Objective Last 24 Hour Vital Signs Date Time Temp Pulse Resp B/P Pulse Ox O2 Delivery O2 Flow Rate FiO2 11/14/16 14:19 122/73 11/14/16 14:04 75 14 98 11/14/16 14:00 97.5 89 14 122/62 100 Nasal Cannula 3.0 11/14/16 13:50 84 12 116/59 100 Nasal Cannula 3.0 11/14/16 13:45 73 15 118/59 100 Nasal Cannula 3.0 11/14/16 13:40 97.0 75 19 114/62 100 Nasal Cannula 3.0 11/14/16 12:00 78 11/14/16 11:48 97.7 73 20 93/42 96 Nasal Cannula 2.0 11/14/16 10:00 73 19 103/56 100 Nasal Cannula 2.0 11/14/16 09:00 72 20 111/59 100 Nasal Cannula 2.0 11/14/16 08:00 82 11/14/16 08:00 98.0 82 19 100/59 100 Nasal Cannula 2.0 11/14/16 07:00 81 20 102/56 100 Nasal Cannula 2.0 11/14/16 06:50 Nasal Cannula 2.0 28 11/14/16 06:50 69 18 Nasal Cannula 2.0 28 11/14/16 06:50 100 Nasal Cannula 2.0 28 11/14/16 06:28 98/54 11/14/16 06:00 70 18 98/54 100 Nasal Cannula 2.0 11/14/16 05:00 72 21 91/47 100 Nasal Cannula 2.0 11/14/16 04:00 97.6 71 18 90/37 100 Nasal Cannula 2.0 11/14/16 04:00 71 11/14/16 03:00 70 22 88/43 100 Nasal Cannula 2.0 11/14/16 02:00 70 18 92/67 100 Nasal Cannula 2.0 11/14/16 01:00 72 25 90/57 99 Nasal Cannula 2.0 11/14/16 00:00 97.8 72 21 94/62 99 Nasal Cannula 2.0 11/14/16 00:00 72 11/13/16 23:00 78 19 98/58 99 Nasal Cannula 2.0 11/13/16 22:00 80 18 111/65 100 Nasal Cannula 2.0 11/13/16 21:03 87 109/62 11/13/16 21:00 89 18 109/62 98 Nasal Cannula 2.0 11/13/16 20:00 98.6 82 19 103/55 100 Nasal Cannula 2.0 11/13/16 20:00 84 11/13/16 19:30 85 18 Nasal Cannula 2.0 28 11/13/16 19:30 99 Nasal Cannula 2.0 28 11/13/16 19:30 Nasal Cannula 2.0 28 11/13/16 19:00 84 18 102/60 100 Nasal Cannula 2.0 11/13/16 18:00 82 17 91/50 100 Nasal Cannula 2.0 11/13/16 18:00 91/50 11/13/16 17:00 86 20 101/53 100 Nasal Cannula 2.0 11/13/16 16:34 97.5 Intake and Output 11/13/16 11/14/16 19:00 07:00 Intake Total 870 ml 360 ml Output Total 450 ml 150 ml Balance 420 ml 210 ml Intake Oral 150 ml 60 ml IV Total 300 ml 300 ml Blood Product 350 ml Other 70 ml Output Urine Total 450 ml 150 ml Hemodialysis UF 0 ml # Voids 2 Laboratory Tests 11/14/16 05:00: White Blood Count 10.9H, Red Blood Count 2.65L, Hemoglobin 8.3L, Hematocrit 24.1L, Mean Corpuscular Volume 91, Mean Corpuscular Hemoglobin 31.3H, Mean Corpuscular Hemoglobin Concent 34.4, Red Cell Distribution Width 13.3, Platelet Count 131L, Mean Platelet Volume 9.8, Neutrophils (%) (Auto) 73.4, Lymphocytes ( %) (Auto) 16.3L, Monocytes (%) (Auto) 8.9, Eosinophils (%) (Auto) 0.8, Basophils (%) (Auto) 0.5, Sodium Level 133L, Potassium Level 3.9, Chloride Level 91L, Carbon Dioxide Level 26, Anion Gap 16H, Blood Urea Nitrogen 50#H, Creatinine 5.1H, Estimat Glomerular Filtration Rate 8.8, Glucose Level 176H, Calcium Level 8.6, Phosphorus Level 5.0H, Magnesium Level 1.8, Total Bilirubin 0.9, Aspartate Amino Transf (AST/SGOT) 28, Alanine Aminotransferase (ALT/SGPT) 5 , Alkaline Phosphatase 64, Total Protein 5.5L, Albumin 3.1L, Globulin 2.4, Albumin/Globulin Ratio 1.2 Height (Feet): 5 Height (Inches): 0.00 Weight (Pounds): 168 General Appearance: no apparent distress Objective other PE not changed OMARI BLOCK Nov 14, 2016 16:18
--- NOTE | 2016-11-14 17:42 | Internal Med Progress Note ---
Subjective Date of Service: Nov 14, 2016 Physician Name Wilber Knutson Attending Physician David Snyder MD Current Medications Medications (Trade) Dose Ordered Sig/Yarelis Route PRN Reason Start Time Stop Time Status Last Admin Dose Admin Acetaminophen (Tylenol) 650 mg Q4H PRN ORAL fever 11/14/16 11:45 12/14/16 11:44 Albuterol/ Ipratropium (DuoNeb 0.5-3(2.5)mg/3ml) 3 ml Q6H PRN HHN dyspnea 11/14/16 13:00 11/19/16 12:59 Atorvastatin Calcium (Lipitor) 20 mg BEDTIME ORAL 11/14/16 21:00 12/14/16 20:59 Clonidine HCl (Catapres) 0.1 mg Q4H PRN ORAL For High Blood Pressure 11/14/16 11:45 12/14/16 11:44 Dextrose (Dextrose 50%) STAT PRN IV Hypoglycemia 11/14/16 12:30 12/14/16 12:29 Insulin Aspart (NovoLOG) BEFORE MEALS AND HS SUBQ 11/14/16 11:30 12/14/16 11:29 11/14/16 16:53 Metoprolol Tartrate (Lopressor) 50 mg Q12HR ORAL 11/14/16 21:00 12/14/16 20:59 Morphine Sulfate (Morphine Sulfate) 1 mg Q4H PRN IVP For Pain 11/14/16 12:30 11/21/16 12:29 Nitroglycerin (Nitro-Bid) 1 inch TID@0600,1200,1800 TOPIC 11/14/16 13:00 12/14/16 12:59 11/14/16 14:19 Nitroglycerin (Ntg) 0.4 mg Q5M PRN SL Prn Chest Pain 11/14/16 11:35 12/14/16 11:34 Ondansetron HCl (Zofran) 4 mg Q6H PRN IVP Nausea & Vomiting 11/14/16 13:00 12/14/16 12:59 Pantoprazole/ Sodium Chloride (Protonix/Sodium Chloride) 250 ml @ 25 mls/hr Q10H IV 11/14/16 14:00 12/14/16 13:59 11/14/16 14:19 Zolpidem Tartrate (Ambien) 5 mg HSPRN PRN ORAL Insomnia 11/14/16 15:45 12/14/16 15:44 Allergies: Coded Allergies: No Known Allergies (Unverified , 11/09/16) ROS Limited/Unobtainable: No Constitutional: Reports: no symptoms HEENT: Reports: no symptoms Cardiovascular: Reports: chest pain Respiratory: Reports: no symptoms Gastrointestinal/Abdominal: Reports: no symptoms Genitourinary: Reports: no symptoms Neurologic/Psychiatric: Reports: no symptoms Subjective 56 YO f admitted with Chest pain. Now Hematemesis and GI bleed due to heparin. Cover for Int Med-Dr Snyder. S/P endoscopy today, 11/14/16. Objective Last Vital Signs Date Time Temp Pulse Resp B/P Pulse Ox O2 Delivery O2 Flow Rate FiO2 11/14/16 16:00 97.5 79 20 120/60 97 Nasal Cannula 2.0 11/14/16 06:50 28 Laboratory Tests Test 11/14/16 05:00 White Blood Count 10.9 K/UL (4.8-10.8) H Red Blood Count 2.65 M/UL (4.20-5.40) L Hemoglobin 8.3 G/DL (12.0-16.0) L Hematocrit 24.1 % (37.0-47.0) L Mean Corpuscular Volume 91 FL (80-99) Mean Corpuscular Hemoglobin 31.3 PG (27.0-31.0) H Mean Corpuscular Hemoglobin Concent 34.4 G/DL (32.0-36.0) Red Cell Distribution Width 13.3 % (11.6-14.8) Platelet Count 131 K/UL (150-450) L Mean Platelet Volume 9.8 FL (6.5-10.1) Neutrophils (%) (Auto) 73.4 % (45.0-75.0) Lymphocytes (%) (Auto) 16.3 % (20.0-45.0) L Monocytes (%) (Auto) 8.9 % (1.0-10.0) Eosinophils (%) (Auto) 0.8 % (0.0-3.0) Basophils (%) (Auto) 0.5 % (0.0-2.0) Sodium Level 133 mEQ/L (135-145) L Potassium Level 3.9 mEQ/L (3.4-4.9) Chloride Level 91 mEQ/L (98-107) L Carbon Dioxide Level 26 mEQ/L (20-30) Anion Gap 16 (5-15) H Blood Urea Nitrogen 50 mg/dL (7-23) #H Creatinine 5.1 mg/dL (0.5-0.9) H Estimat Glomerular Filtration Rate 8.8 mL/min (>60) Glucose Level 176 mg/dL (74-106) H Calcium Level 8.6 mg/dL (8.6-10.2) Phosphorus Level 5.0 mg/dL (2.5-4.8) H Magnesium Level 1.8 mg/dL (1.7-2.5) Total Bilirubin 0.9 mg/dL (0.0-1.2) Aspartate Amino Transf (AST/SGOT) 28 U/L (5-40) Alanine Aminotransferase (ALT/SGPT) 5 U/L (3-33) Alkaline Phosphatase 64 U/L (35-104) Total Protein 5.5 g/dL (6.6-8.7) L Albumin 3.1 g/dL (3.5-5.2) L Globulin 2.4 g/dL Albumin/Globulin Ratio 1.2 (1.0-2.7) Intake and Output 11/13/16 11/14/16 19:00 07:00 Intake Total 870 ml 360 ml Output Total 450 ml 150 ml Balance 420 ml 210 ml Intake Oral 150 ml 60 ml IV Total 300 ml 300 ml Blood Product 350 ml Other 70 ml Output Urine Total 450 ml 150 ml Hemodialysis UF 0 ml # Voids 2 Objective General Appearance: WD/WN, no apparent distress EENT: PERRL/EOMI, normal ENT inspection Neck: non-tender, normal alignment, supple, normal inspection Cardiovascular: normal peripheral pulses, regular rhythm, no gallop/murmur, no JVD Respiratory/Chest: chest wall non-tender, lungs clear, normal breath sounds, no respiratory distress, no accessory muscle use Abdomen: normal bowel sounds, non tender, soft, no organomegaly, no mass 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 Will require cardiac cath (2) CAD (coronary artery disease) (3) Diabetes mellitus Assessment & Plan: Cont starlix and novolog sliding scale. (4) Hypertension Assessment & Plan: Cont metoprolol (5) Kidney transplant recipient (6) ESRD (end stage renal disease) on dialysis Assessment & Plan: See nephrology note. S/P Hemodialysis today 11/13/18. (7) ACS (acute coronary syndrome) (8) Hematemesis Assessment & Plan: Due to heparin; D/C heparin drip. See GI note. S/P Endoscopy 11/14/16 (9) Melena (10) Hypotensive episode Assessment & Plan: Due to GI bleed. (11) Anemia, blood loss Assessment & Plan: ? due to heparin? D/C heparin drip. S/P transfusion 2 Units PRBC today, 11/12/16. 4 units total. (12) NSTEMI (non-ST elevated myocardial infarction) Assessment & Plan: Hold heparin due to GI bleed. See cardiology note. (13) Gastrointestinal hemorrhage Assessment & Plan: S/P Endoscopy today, 11/14/16. See GI note. Status: WILBER Rivas Nov 14, 2016 17:42
[2016-11-14] MEDS: Metoprolol 50mg tab ORAL SCH (20:58)
[2016-11-14] MEDS: Atorvastatin 20mg tab ORAL SCH (20:58)
--- NOTE | 2016-11-14 22:49 | Procedure Note ---
DATE OF PROCEDURE: 11/14/2016 SURGEON: Patric Jackson M.D. PROCEDURE: Upper endoscopy with biopsy and hemostasis. ANESTHESIOLOGIST: Jewel Cooper M.D. INSTRUMENT: Olympus adult flexible upper endoscope. INDICATION: Upper gastrointestinal bleeding. REASON FOR PROCEDURE: The procedure, risks, benefits, and possible consequences, including hemorrhage, aspiration, perforation and infection, and alternative treatments, were explained to the patient/legal guardian by Dr. Patric Jackson and the patient/legal guardian understood and accepted these risks. DESCRIPTION OF PROCEDURE: After informed consent was obtained and the patient was adequately sedated, Olympus upper endoscope was advanced from mouth into the second portion of the duodenum and retroflexion was performed of the stomach. The patient has diffuse gastritis. Random biopsy from antrum of the stomach was obtained to rule out H. pylori infection. The patient had a small ulcer in the body of the stomach close to the fundus, this also might have been the source of bleeding. There is no adherent clot. No visible vessel. But given the patient is going to get cardiac catheterization and most probably anticoagulation, we placed two clips on this ulcer to prevent future bleeds. The patient tolerated the procedure without any complications. SUMMARY OF FINDINGS: 1. Gastric ulcers, see above for details. Status post hemostasis. 2. Gastritis, status post biopsy. RECOMMENDATIONS: 1. Start clear liquid diet and advance as tolerated. 2. Continue on Protonix. 3. Follow with Cardiology regarding the future cardiac workup for acute myocardial infarction. Patric Jackson M.D. DR: SHRAVAN JOB#: [id number] CC:
--- NOTE | 2016-11-14 23:23 | Diagnostic Imaging Report ---
APPROVED REPORT CPT Code: 82151 Present Symptoms Lower Extremity Pain: Bilateral BILATERAL: Imaging reveals a patent deep venous system bilaterally. There is no evidence of thrombus within the femoral, popliteal or tibial segments. The greater saphenous veins are also within normal limits. Doppler indicates normal spontaneous flow within these segments.
[2016-11-15] VITALS (7 sets, daily range): BP systolic 97–117; BP diastolic 52–75
[2016-11-15] MEDS: Pantoprazole 80 MG in NS 250 ML IV SCH ×2
[2016-11-15] MEDS: Zolpidem 5mg tab ORAL PRN ×2 (01:15→22:40)
[2016-11-15] MEDS: Nitroglycerin 2% oint pkt TOPIC SCH ×4 (06:43→16:52)
[2016-11-15] MEDS: NovoLOG Insulin Flexpen SUBQ SCH ×4 (06:49→21:11)
[2016-11-15 08:52] LABS: BASOPHILS % (AUTO) 0.4 % (0.0-2.0); EOSINOPHILS % (AUTO) 1.1 % (0.0-3.0); LYMPHOCYTES % (AUTO) 21.7 % (20.0-45.0); MEAN CORPUSCULAR HEMOGLOBIN 30.8 PG (27.0-31.0); MEAN CORPUSCULAR HGB CONC 33.3 G/DL (32.0-36.0); MEAN CORPUSCULAR VOLUME 93 FL (80-99); MEAN PLATELET VOLUME 8.3 FL (6.5-10.1); MONOCYTES % (AUTO) 10.3 % (1.0-10.0); NEUTROPHILS % (AUTO) 66.5 % (45.0-75.0); PLATELET COUNT 158 K/UL (150-450); RED BLOOD COUNT 2.73 M/UL (4.20-5.40); RED CELL DISTRIBUTION WIDTH 13.5 % (11.6-14.8); WHITE BLOOD COUNT 7.7 K/UL (4.8-10.8)
[2016-11-15] MEDS: Metoprolol 50mg tab ORAL SCH ×2 (09:00→21:08)
[2016-11-15 09:18] LABS: CALCIUM 8.6 mg/dL (8.6-10.2); CREATININE 6.4 mg/dL (0.5-0.9); GLOMERULAR FILTRATION RATE 6.7 mL/min (>60); POTASSIUM 3.7 mEQ/L (3.4-4.9)
[2016-11-15] MEDS ORDERED: Propofol 10mg/ml 20ml IV ONE (09:19)
[2016-11-15] MEDS ORDERED: ePHEDrine 50mg/ml Inj ONE (09:19)
[2016-11-15 09:21] LABS: TROPONIN I 6.48 ng/mL (<=0.30)
--- NOTE | 2016-11-15 09:54 | General Progress Note ---
Assessment/Plan Problem List: (1) ESRD (end stage renal disease) on dialysis ICD Codes: N18.6 - End stage renal disease; Z99.2 - Dependence on renal dialysis SNOMED: 840277111 (2) Anemia ICD Codes: D64.9 - Anemia, unspecified SNOMED: 284019181 Qualifiers: Qualified Codes: D64.9 - Anemia, unspecified (3) Diabetes mellitus ICD Codes: E11.9 - Type 2 diabetes mellitus without complications SNOMED: 13370693 Qualifiers: (4) CAD (coronary artery disease) ICD Codes: I25.10 - Atherosclerotic heart disease of [place] coronary artery without angina pectoris SNOMED: 60502945 (5) ACS (acute coronary syndrome) ICD Codes: I24.9 - Acute ischemic heart disease, unspecified SNOMED: 795363204 (6) Hypertension ICD Codes: I10 - Essential (primary) hypertension SNOMED: 63134210 (7) Elevated troponin ICD Codes: R79.89 - Other specified abnormal findings of blood chemistry SNOMED: 990420873, 625307262 (8) Hematemesis ICD Codes: K92.0 - Hematemesis SNOMED: 2475614 (9) Melena ICD Codes: K92.1 - Melena SNOMED: 7032104, 619749732 Assessment/Plan stable H&H s/p EGD yesterday Gastric ulcer s/p hemostasis fu biopsy results ppi BID advance diet re check stool ob Subjective ROS Limited/Unobtainable: Yes Allergies: Coded Allergies: No Known Allergies (Unverified , 11/09/16) Subjective no event Objective Last 24 Hour Vital Signs Date Time Temp Pulse Resp B/P Pulse Ox O2 Delivery O2 Flow Rate FiO2 11/15/16 09:00 78 117/64 11/15/16 08:21 97.3 78 18 117/64 99 Nasal Cannula 2.0 11/15/16 06:43 110/67 11/15/16 04:21 99.1 106/57 11/15/16 04:00 70 11/15/16 00:00 98.2 75 16 116/62 95 Room Air 11/15/16 00:00 75 11/14/16 21:00 88 11/14/16 20:58 83 118/64 11/14/16 20:00 97.6 83 20 118/64 98 Nasal Cannula 2.0 11/14/16 19:20 Nasal Cannula 2.0 28 11/14/16 19:20 99 Nasal Cannula 2.0 28 11/14/16 19:15 79 18 Nasal Cannula 2.0 28 11/14/16 18:18 120/60 11/14/16 16:00 75 11/14/16 16:00 97.5 79 20 120/60 97 Nasal Cannula 2.0 11/14/16 14:19 122/73 11/14/16 14:04 75 14 98 11/14/16 14:00 97.5 89 14 122/62 100 Nasal Cannula 3.0 11/14/16 13:50 84 12 116/59 100 Nasal Cannula 3.0 11/14/16 13:45 73 15 118/59 100 Nasal Cannula 3.0 11/14/16 13:40 97.0 75 19 114/62 100 Nasal Cannula 3.0 11/14/16 12:00 78 11/14/16 11:48 97.7 73 20 93/42 96 Nasal Cannula 2.0 11/14/16 10:00 73 19 103/56 100 Nasal Cannula 2.0 Intake and Output 11/14/16 11/15/16 19:00 07:00 Intake Total 175 ml Balance 175 ml Intake Oral 0 ml IV Total 175 ml Laboratory Tests 11/15/16 08:40: White Blood Count 7.7, Red Blood Count 2.73L, Hemoglobin 8.4L, Hematocrit 25.3L , Mean Corpuscular Volume 93, Mean Corpuscular Hemoglobin 30.8, Mean Corpuscular Hemoglobin Concent 33.3, Red Cell Distribution Width 13.5, Platelet Count 158, Mean Platelet Volume 8.3, Neutrophils (%) (Auto) 66.5, Lymphocytes (% ) (Auto) 21.7, Monocytes (%) (Auto) 10.3H, Eosinophils (%) (Auto) 1.1, Basophils (%) (Auto) 0.4, Sodium Level 135, Potassium Level 3.7, Chloride Level 91L, Carbon Dioxide Level 25, Anion Gap 19H, Blood Urea Nitrogen 62H, Creatinine 6.4H, Estimat Glomerular Filtration Rate 6.7, Glucose Level 244H, Calcium Level 8.6, Troponin I 6.48*H Height (Feet): 5 Height (Inches): 0.00 Weight (Pounds): 168 General Appearance: alert EENT: normal ENT inspection Neck: supple Cardiovascular: normal rate Respiratory/Chest: decreased breath sounds Abdomen: normal bowel sounds, non tender, soft Extremities: non-tender DEBRA DASH Nov 15, 2016 09:54
--- NOTE | 2016-11-15 12:43 | General Progress Note ---
Assessment/Plan Status: stable - from renal stand on HD Status Narrative Persistantly high Troponin I Assessment/Plan Status: ESRD- ACS- with elevated troponin Severe Anemia- transfused GI bleed DM- HTN- Plan; Optimize cardiac status- echo ej fx 45% Transfusion as needed HD today monitor H&H and Renal parameters- per consultants per orders Subjective ROS Limited/Unobtainable: No Constitutional: Reports: malaise Allergies: Coded Allergies: No Known Allergies (Unverified , 11/09/16) Objective Last 24 Hour Vital Signs Date Time Temp Pulse Resp B/P Pulse Ox O2 Delivery O2 Flow Rate FiO2 11/15/16 12:00 110/52 11/15/16 11:45 97.2 76 20 110/52 98 Nasal Cannula 2.0 11/15/16 09:41 98 Nasal Cannula 2.0 28 11/15/16 09:41 72 18 Nasal Cannula 2.0 28 11/15/16 09:41 Nasal Cannula 2.0 28 11/15/16 09:00 78 117/64 11/15/16 08:21 97.3 78 18 117/64 99 Nasal Cannula 2.0 11/15/16 08:00 73 11/15/16 06:43 110/67 11/15/16 04:21 99.1 106/57 11/15/16 04:00 70 11/15/16 00:00 98.2 75 16 116/62 95 Room Air 11/15/16 00:00 75 11/14/16 21:00 88 11/14/16 20:58 83 118/64 11/14/16 20:00 97.6 83 20 118/64 98 Nasal Cannula 2.0 11/14/16 19:20 Nasal Cannula 2.0 28 11/14/16 19:20 99 Nasal Cannula 2.0 28 11/14/16 19:15 79 18 Nasal Cannula 2.0 28 11/14/16 18:18 120/60 11/14/16 16:00 75 11/14/16 16:00 97.5 79 20 120/60 97 Nasal Cannula 2.0 11/14/16 14:19 122/73 11/14/16 14:04 75 14 98 11/14/16 14:00 97.5 89 14 122/62 100 Nasal Cannula 3.0 11/14/16 13:50 84 12 116/59 100 Nasal Cannula 3.0 11/14/16 13:45 73 15 118/59 100 Nasal Cannula 3.0 11/14/16 13:40 97.0 75 19 114/62 100 Nasal Cannula 3.0 Intake and Output 11/14/16 11/15/16 19:00 07:00 Intake Total 175 ml Balance 175 ml Intake Oral 0 ml IV Total 175 ml Laboratory Tests 11/15/16 08:40: White Blood Count 7.7, Red Blood Count 2.73L, Hemoglobin 8.4L, Hematocrit 25.3L , Mean Corpuscular Volume 93, Mean Corpuscular Hemoglobin 30.8, Mean Corpuscular Hemoglobin Concent 33.3, Red Cell Distribution Width 13.5, Platelet Count 158, Mean Platelet Volume 8.3, Neutrophils (%) (Auto) 66.5, Lymphocytes (% ) (Auto) 21.7, Monocytes (%) (Auto) 10.3H, Eosinophils (%) (Auto) 1.1, Basophils (%) (Auto) 0.4, Sodium Level 135, Potassium Level 3.7, Chloride Level 91L, Carbon Dioxide Level 25, Anion Gap 19H, Blood Urea Nitrogen 62H, Creatinine 6.4H, Estimat Glomerular Filtration Rate 6.7, Glucose Level 244H, Calcium Level 8.6, Troponin I 6.48*H 11/15/16 11:25: Stool Occult Blood [Pending] Height (Feet): 5 Height (Inches): 0.00 Weight (Pounds): 167 General Appearance: no apparent distress Neck: stiff neck Cardiovascular: normal rate Respiratory/Chest: decreased breath sounds Abdomen: distended Objective other PE not changed OMARI BLOCK Nov 15, 2016 12:43
--- NOTE | 2016-11-15 19:02 | Internal Med Progress Note ---
Subjective Date of Service: Nov 15, 2016 Physician Name Starkey,Enrike Attending Physician David Snyder MD Current Medications Medications (Trade) Dose Ordered Sig/Yarelis Route PRN Reason Start Time Stop Time Status Last Admin Dose Admin Acetaminophen (Tylenol) 650 mg Q4H PRN ORAL fever 11/14/16 11:45 12/14/16 11:44 11/15/16 16:52 Albuterol/ Ipratropium (DuoNeb 0.5-3(2.5)mg/3ml) 3 ml Q6H PRN HHN dyspnea 11/14/16 13:00 11/19/16 12:59 Atorvastatin Calcium (Lipitor) 20 mg BEDTIME ORAL 11/14/16 21:00 12/14/16 20:59 11/14/16 20:58 Clonidine HCl (Catapres) 0.1 mg Q4H PRN ORAL For High Blood Pressure 11/14/16 11:45 12/14/16 11:44 Dextrose (Dextrose 50%) STAT PRN IV Hypoglycemia 11/14/16 12:30 12/14/16 12:29 Insulin Aspart (NovoLOG) BEFORE MEALS AND HS SUBQ 11/14/16 11:30 12/14/16 11:29 11/15/16 11:44 Metoprolol Tartrate (Lopressor) 50 mg Q12HR ORAL 11/14/16 21:00 12/14/16 20:59 11/14/16 20:58 Morphine Sulfate (Morphine Sulfate) 1 mg Q4H PRN IVP For Pain 11/14/16 12:30 11/21/16 12:29 Nateglinide (Starlix) 120 mg TIAC ORAL 11/15/16 16:30 12/15/16 16:29 Nitroglycerin (Nitro-Bid) 1 inch TID@0600,1200,1800 TOPIC 11/14/16 13:00 12/14/16 12:59 11/15/16 16:52 Nitroglycerin (Ntg) 0.4 mg Q5M PRN SL Prn Chest Pain 11/14/16 11:35 12/14/16 11:34 Ondansetron HCl (Zofran) 4 mg Q6H PRN IVP Nausea & Vomiting 11/14/16 13:00 12/14/16 12:59 Pantoprazole (Protonix) 40 mg DAILY ORAL 11/15/16 09:00 12/15/16 08:59 11/15/16 09:09 Zolpidem Tartrate (Ambien) 5 mg HSPRN PRN ORAL Insomnia 11/14/16 15:45 12/14/16 15:44 11/15/16 01:15 Allergies: Coded Allergies: No Known Allergies (Unverified , 11/09/16) ROS Limited/Unobtainable: No Constitutional: Reports: no symptoms HEENT: Reports: no symptoms Cardiovascular: Reports: no symptoms Respiratory: Reports: no symptoms Gastrointestinal/Abdominal: Reports: no symptoms Genitourinary: Reports: no symptoms Neurologic/Psychiatric: Reports: no symptoms Subjective 56 YO f admitted with Chest pain. Now Hematemesis and GI bleed due to heparin. Cover for Int Med-Dr nSyder. S/P endoscopy 11/14/16. Objective Last Vital Signs Date Time Temp Pulse Resp B/P Pulse Ox O2 Delivery O2 Flow Rate FiO2 11/15/16 16:52 115/75 11/15/16 16:12 Nasal Cannula 2.0 11/15/16 16:09 97.0 78 8 97 11/15/16 09:41 28 Laboratory Tests Test 11/15/16 08:40 11/15/16 11:25 White Blood Count 7.7 K/UL (4.8-10.8) Red Blood Count 2.73 M/UL (4.20-5.40) L Hemoglobin 8.4 G/DL (12.0-16.0) L Hematocrit 25.3 % (37.0-47.0) L Mean Corpuscular Volume 93 FL (80-99) Mean Corpuscular Hemoglobin 30.8 PG (27.0-31.0) Mean Corpuscular Hemoglobin Concent 33.3 G/DL (32.0-36.0) Red Cell Distribution Width 13.5 % (11.6-14.8) Platelet Count 158 K/UL (150-450) Mean Platelet Volume 8.3 FL (6.5-10.1) Neutrophils (%) (Auto) 66.5 % (45.0-75.0) Lymphocytes (%) (Auto) 21.7 % (20.0-45.0) Monocytes (%) (Auto) 10.3 % (1.0-10.0) H Eosinophils (%) (Auto) 1.1 % (0.0-3.0) Basophils (%) (Auto) 0.4 % (0.0-2.0) Sodium Level 135 mEQ/L (135-145) Potassium Level 3.7 mEQ/L (3.4-4.9) Chloride Level 91 mEQ/L (98-107) L Carbon Dioxide Level 25 mEQ/L (20-30) Anion Gap 19 (5-15) H Blood Urea Nitrogen 62 mg/dL (7-23) H Creatinine 6.4 mg/dL (0.5-0.9) H Estimat Glomerular Filtration Rate 6.7 mL/min (>60) Glucose Level 244 mg/dL (74-106) H Calcium Level 8.6 mg/dL (8.6-10.2) Troponin I 6.48 ng/mL (<=0.30) *H Stool Occult Blood Positive (NEGATIVE) Intake and Output 11/14/16 11/15/16 19:00 07:00 Intake Total 175 ml Balance 175 ml Intake Oral 0 ml IV Total 175 ml Objective General Appearance: WD/WN, no apparent distress EENT: PERRL/EOMI, normal ENT inspection Neck: non-tender, normal alignment, supple, normal inspection Cardiovascular: normal peripheral pulses, regular rhythm, no gallop/murmur, no JVD Respiratory/Chest: chest wall non-tender, lungs clear, normal breath sounds, no respiratory distress, no accessory muscle use Abdomen: normal bowel sounds, non tender, soft, no organomegaly, no mass 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 Will require cardiac cath (2) CAD (coronary artery disease) (3) Diabetes mellitus Assessment & Plan: Cont starlix and novolog sliding scale. (4) Hypertension Assessment & Plan: Cont metoprolol (5) Kidney transplant recipient (6) ESRD (end stage renal disease) on dialysis Assessment & Plan: See nephrology note. S/P Hemodialysis today 11/15/18. (7) ACS (acute coronary syndrome) (8) Hematemesis Assessment & Plan: Due to heparin; D/C heparin drip. See GI note. S/P Endoscopy 11/14/16 (9) Melena (10) Hypotensive episode Assessment & Plan: Due to GI bleed. (11) Anemia, blood loss Assessment & Plan: ? due to heparin? D/C heparin drip. S/P transfusion 2 Units PRBC today, 11/12/16. 4 units total. (12) NSTEMI (non-ST elevated myocardial infarction) Assessment & Plan: Hold heparin due to GI bleed. See cardiology note. (13) Gastrointestinal hemorrhage Assessment & Plan: S/P Endoscopy 11/14/16. See GI note. Status: not improved ENRIKE STARKEY Nov 15, 2016 19:02
--- NOTE | 2016-11-15 19:25 | Cardiology Progress Note ---
Assessment/Plan Assessment/Plan mi ?NSTEMI paced ekg gi bleed anemia esrd hs of tx now on hd cad s/p cabg 8 years ago anemia pacemaker implantation hx obesity trop peak 7.8 this am down to 6.4 needs cath on bb and statin ekg paced and uninterpreted resume asa and plavix now that recurrent cp this evening had clips placed by dr chaudhary during endsocopy yest he felt pt able to have antiplt if needed ntp ntg for now she seems to be having recurrent cp just now 11/15/201319;00 d/w primary cardiologic dr cobian earlier to day [facility] accept [facility] have placed name will need to transfer to cath facility have palced call to [facility] await call back [facility] fellow to see if able to transfer tehr for cath Subjective Cardiovascular: Reports: chest pain Respiratory: Reports: shortness of breath Gastrointestinal/Abdominal: Denies: abdomen distended Genitourinary: Denies: burning Objective Last 24 Hour Vital Signs Date Time Temp Pulse Resp B/P Pulse Ox O2 Delivery O2 Flow Rate FiO2 11/15/16 16:52 115/75 11/15/16 16:12 Nasal Cannula 2.0 11/15/16 16:09 97.0 78 8 115/75 97 Nasal Cannula 2.0 11/15/16 13:00 Nasal Cannula 2.0 11/15/16 13:00 97.8 76 20 103/60 97 Nasal Cannula 2.0 11/15/16 12:00 74 11/15/16 12:00 110/52 11/15/16 11:45 97.2 76 20 110/52 98 Nasal Cannula 2.0 11/15/16 09:41 98 Nasal Cannula 2.0 28 11/15/16 09:41 72 18 Nasal Cannula 2.0 28 11/15/16 09:41 Nasal Cannula 2.0 28 11/15/16 09:00 78 117/64 11/15/16 08:21 97.3 78 18 117/64 99 Nasal Cannula 2.0 11/15/16 08:00 73 11/15/16 06:43 110/67 11/15/16 04:21 99.1 106/57 11/15/16 04:00 70 11/15/16 00:00 98.2 75 16 116/62 95 Room Air 11/15/16 00:00 75 11/14/16 21:00 88 11/14/16 20:58 83 118/64 11/14/16 20:00 97.6 83 20 118/64 98 Nasal Cannula 2.0 11/14/16 19:20 Nasal Cannula 2.0 28 11/14/16 19:20 99 Nasal Cannula 2.0 28 11/14/16 19:15 79 18 Nasal Cannula 2.0 28 General Appearance: alert Neck: non-tender Cardiovascular: normal rate, regular rhythm Respiratory/Chest: lungs clear Abdomen: normal bowel sounds, non tender, soft Extremities: no swelling Intake and Output 11/14/16 11/15/16 19:00 07:00 Intake Total 175 ml Balance 175 ml Intake Oral 0 ml IV Total 175 ml Laboratory Tests Test 11/15/16 08:40 11/15/16 11:25 White Blood Count 7.7 K/UL (4.8-10.8) Red Blood Count 2.73 M/UL (4.20-5.40) L Hemoglobin 8.4 G/DL (12.0-16.0) L Hematocrit 25.3 % (37.0-47.0) L Mean Corpuscular Volume 93 FL (80-99) Mean Corpuscular Hemoglobin 30.8 PG (27.0-31.0) Mean Corpuscular Hemoglobin Concent 33.3 G/DL (32.0-36.0) Red Cell Distribution Width 13.5 % (11.6-14.8) Platelet Count 158 K/UL (150-450) Mean Platelet Volume 8.3 FL (6.5-10.1) Neutrophils (%) (Auto) 66.5 % (45.0-75.0) Lymphocytes (%) (Auto) 21.7 % (20.0-45.0) Monocytes (%) (Auto) 10.3 % (1.0-10.0) H Eosinophils (%) (Auto) 1.1 % (0.0-3.0) Basophils (%) (Auto) 0.4 % (0.0-2.0) Sodium Level 135 mEQ/L (135-145) Potassium Level 3.7 mEQ/L (3.4-4.9) Chloride Level 91 mEQ/L (98-107) L Carbon Dioxide Level 25 mEQ/L (20-30) Anion Gap 19 (5-15) H Blood Urea Nitrogen 62 mg/dL (7-23) H Creatinine 6.4 mg/dL (0.5-0.9) H Estimat Glomerular Filtration Rate 6.7 mL/min (>60) Glucose Level 244 mg/dL (74-106) H Calcium Level 8.6 mg/dL (8.6-10.2) Troponin I 6.48 ng/mL (<=0.30) *H Stool Occult Blood Positive (NEGATIVE) DREW HUSAIN Nov 15, 2016 19:25
[2016-11-15] MEDS: Atorvastatin 20mg tab ORAL SCH (21:07)
[2016-11-15] MEDS: Aspirin EC 81mg tab ORAL SCH (21:07)
--- NOTE | 2016-11-15 22:10 | Pulmonology Progress Note ---
Assessment/Plan Problems: (1) ACS (acute coronary syndrome) (2) CAD (coronary artery disease) (3) Diabetes mellitus (4) ESRD (end stage renal disease) on dialysis (5) Anemia Subjective Allergies: Coded Allergies: No Known Allergies (Unverified , 11/09/16) Objective Last 24 Hour Vital Signs Date Time Temp Pulse Resp B/P Pulse Ox O2 Delivery O2 Flow Rate FiO2 11/15/16 21:08 76 115/75 11/15/16 20:00 97.4 67 21 97/57 96 Nasal Cannula 2.0 11/15/16 19:20 76 18 Nasal Cannula 2.0 28 11/15/16 19:20 Nasal Cannula 2.0 28 11/15/16 19:20 94 Nasal Cannula 2.0 28 11/15/16 19:10 115/75 11/15/16 16:52 115/75 11/15/16 16:12 Nasal Cannula 2.0 11/15/16 16:09 97.0 78 8 115/75 97 Nasal Cannula 2.0 11/15/16 16:00 83 11/15/16 13:00 Nasal Cannula 2.0 11/15/16 13:00 97.8 76 20 103/60 97 Nasal Cannula 2.0 11/15/16 12:00 74 11/15/16 12:00 110/52 11/15/16 11:45 97.2 76 20 110/52 98 Nasal Cannula 2.0 11/15/16 09:41 98 Nasal Cannula 2.0 28 11/15/16 09:41 72 18 Nasal Cannula 2.0 28 11/15/16 09:41 Nasal Cannula 2.0 28 11/15/16 09:00 78 117/64 11/15/16 08:21 97.3 78 18 117/64 99 Nasal Cannula 2.0 11/15/16 08:00 73 11/15/16 06:43 110/67 11/15/16 04:21 99.1 106/57 11/15/16 04:00 70 11/15/16 00:00 98.2 75 16 116/62 95 Room Air 11/15/16 00:00 75 Intake and Output 11/14/16 11/15/16 19:00 07:00 Intake Total 175 ml Balance 175 ml Intake Oral 0 ml IV Total 175 ml Laboratory Tests 11/15/16 08:40: White Blood Count 7.7, Red Blood Count 2.73L, Hemoglobin 8.4L, Hematocrit 25.3L , Mean Corpuscular Volume 93, Mean Corpuscular Hemoglobin 30.8, Mean Corpuscular Hemoglobin Concent 33.3, Red Cell Distribution Width 13.5, Platelet Count 158, Mean Platelet Volume 8.3, Neutrophils (%) (Auto) 66.5, Lymphocytes (% ) (Auto) 21.7, Monocytes (%) (Auto) 10.3H, Eosinophils (%) (Auto) 1.1, Basophils (%) (Auto) 0.4, Sodium Level 135, Potassium Level 3.7, Chloride Level 91L, Carbon Dioxide Level 25, Anion Gap 19H, Blood Urea Nitrogen 62H, Creatinine 6.4H, Estimat Glomerular Filtration Rate 6.7, Glucose Level 244H, Calcium Level 8.6, Troponin I 6.48*H 11/15/16 11:25: Stool Occult Blood Positive 11/15/16 20:35: Troponin I [Pending] Current Medications Medications (Trade) Dose Ordered Sig/Yarelis Route PRN Reason Start Time Stop Time Status Last Admin Dose Admin Acetaminophen (Tylenol) 650 mg Q4H PRN ORAL fever 11/14/16 11:45 12/14/16 11:44 11/15/16 16:52 Albuterol/ Ipratropium (DuoNeb 0.5-3(2.5)mg/3ml) 3 ml Q6H PRN HHN dyspnea 11/14/16 13:00 11/19/16 12:59 Aspirin (Ecotrin) 81 mg DAILY ORAL 11/15/16 20:00 12/15/16 19:59 11/15/16 21:07 Atorvastatin Calcium (Lipitor) 20 mg BEDTIME ORAL 11/14/16 21:00 12/14/16 20:59 11/15/16 21:07 Clonidine HCl (Catapres) 0.1 mg Q4H PRN ORAL For High Blood Pressure 11/14/16 11:45 12/14/16 11:44 Clopidogrel Bisulfate (Plavix) 75 mg DAILY ORAL 11/15/16 20:00 12/15/16 19:59 11/15/16 21:08 Dextrose (Dextrose 50%) STAT PRN IV Hypoglycemia 11/14/16 12:30 12/14/16 12:29 Insulin Aspart (NovoLOG) BEFORE MEALS AND HS SUBQ 11/14/16 11:30 12/14/16 11:29 11/15/16 21:11 Metoprolol Tartrate (Lopressor) 50 mg Q12HR ORAL 11/14/16 21:00 12/14/16 20:59 11/15/16 21:08 Morphine Sulfate (Morphine Sulfate) 1 mg Q4H PRN IVP For Pain 11/14/16 12:30 11/21/16 12:29 Nateglinide (Starlix) 120 mg TIAC ORAL 11/15/16 16:30 12/15/16 16:29 11/15/16 16:30 Nitroglycerin (Nitro-Bid) 0.5 inch TID@0600,1200,1800 TOPIC 11/16/16 06:00 12/16/16 05:59 Nitroglycerin (Ntg) 0.4 mg Q5M PRN SL Prn Chest Pain 11/14/16 11:35 12/14/16 11:34 11/15/16 19:10 Ondansetron HCl (Zofran) 4 mg Q6H PRN IVP Nausea & Vomiting 11/14/16 13:00 12/14/16 12:59 Pantoprazole (Protonix) 40 mg DAILY ORAL 11/15/16 09:00 12/15/16 08:59 11/15/16 09:09 Zolpidem Tartrate (Ambien) 5 mg HSPRN PRN ORAL Insomnia 11/14/16 15:45 12/14/16 15:44 11/15/16 01:15 EMILY LYONS Nov 15, 2016 22:10
[2016-11-15 22:31] LABS: TROPONIN I 2.26 ng/mL (<=0.30)
[2016-11-16 00:56] VITALS: BP 102/51
[2016-11-16 04:16] VITALS: BP 104/65
[2016-11-16] MEDS: Nitroglycerin 2% oint pkt TOPIC SCH ×3 (06:28→17:24)
[2016-11-16] MEDS: NovoLOG Insulin Flexpen SUBQ SCH ×4 (06:30→20:10)
[2016-11-16 07:16] LABS: BASOPHILS % (AUTO) 0.4 % (0.0-2.0); EOSINOPHILS % (AUTO) 1.7 % (0.0-3.0); LYMPHOCYTES % (AUTO) 20.9 % (20.0-45.0); MEAN CORPUSCULAR HEMOGLOBIN 30.4 PG (27.0-31.0); MEAN CORPUSCULAR HGB CONC 32.9 G/DL (32.0-36.0); MEAN CORPUSCULAR VOLUME 93 FL (80-99); MEAN PLATELET VOLUME 8.3 FL (6.5-10.1); MONOCYTES % (AUTO) 10.4 % (1.0-10.0); NEUTROPHILS % (AUTO) 66.5 % (45.0-75.0); PLATELET COUNT 140 K/UL (150-450); RED BLOOD COUNT 2.81 M/UL (4.20-5.40); RED CELL DISTRIBUTION WIDTH 13.6 % (11.6-14.8); WHITE BLOOD COUNT 7.5 K/UL (4.8-10.8)
[2016-11-16 07:56] VITALS: BP 132/66
[2016-11-16] MEDS: Aspirin EC 81mg tab ORAL SCH (08:09)
[2016-11-16] MEDS: Metoprolol 50mg tab ORAL SCH ×2 (08:10→20:36)
[2016-11-16 08:30] LABS: TROPONIN I 1.62 ng/mL (<=0.30)
--- NOTE | 2016-11-16 08:38 | Consultation ---
DATE OF CONSULTATION: 11/12/2016 CHIEF COMPLAINT: Upper gastrointestinal bleeding. HISTORY OF PRESENT ILLNESS: The patient was admitted to the hospital with a complaint of chest pain, who was found to have anemia and gastrointestinal bleeding, so GI consult was requested for evaluation. PAST MEDICAL HISTORY: 1. History of diabetes. 2. End-stage renal disease, on hemodialysis. 3. Hypertension. 4. Coronary artery disease. 5. Anemia. 6. History of respiratory failure secondary to pulmonary edema. 7. History of kidney transplant in the past. PAST SURGICAL HISTORY: Status post kidney transplant. MEDICATIONS: Please see medication reconciliation list. ALLERGIES: No known allergies. FAMILY HISTORY: Noncontributory. REVIEW OF SYSTEMS: A 10-point review of systems was performed and pertinent positives as mentioned in history of present illness. PHYSICAL EXAMINATION: VITAL SIGNS: Blood pressure is 92/45, pulse 80, and respirations 20. HEENT: Normocephalic and atraumatic. Mild pale conjunctivae. NECK: Supple. No lymphadenopathy. CARDIOVASCULAR: Tachycardic. Regular rate. Plus S1 and S2. LUNGS: Decreased breath sounds bilaterally and diffusely. ABDOMEN: Mildly distended. Mildly tympanic to percussion. Minimal tenderness to palpation in the epigastric area. No rebound. No guarding. No peritoneal sign. EXTREMITIES: No cyanosis. No clubbing. No edema. LABORATORY DATA: White count 8.3, hemoglobin 6.9, hematocrit 20, and platelets 125,000. ASSESSMENT AND PLAN: The patient is a 56-year-old female with end-stage renal disease, diabetes, and multiple other medical problems, who is admitted to the hospital with chest pain with acute myocardial infarction with elevated troponin. The patient was given heparin for acute myocardial infarction, but now has active gastrointestinal bleeding. Hemoglobin dropped to about 6.9. The patient has some hematemesis. PLAN: Plan is to keep her NPO, start on intravenous fluids and intravenous Protonix, and to stop the heparin. I left a message for Cardiology to see if the patient is stable for endoscopy tomorrow. Meanwhile, the patient is also getting blood transfusion. I want to thank Dr. Devine for this kind referral. Patric Jackson M.D. DR: SHRAVAN JOB#: [id number] CC: Eyal Devine M.D.
--- NOTE | 2016-11-16 10:32 | General Progress Note ---
Assessment/Plan Problem List: (1) ESRD (end stage renal disease) on dialysis ICD Codes: N18.6 - End stage renal disease; Z99.2 - Dependence on renal dialysis SNOMED: 594013754 (2) Anemia ICD Codes: D64.9 - Anemia, unspecified SNOMED: 886706480 Qualifiers: Qualified Codes: D64.9 - Anemia, unspecified (3) Diabetes mellitus ICD Codes: E11.9 - Type 2 diabetes mellitus without complications SNOMED: 87508056 Qualifiers: (4) CAD (coronary artery disease) ICD Codes: I25.10 - Atherosclerotic heart disease of [place] coronary artery without angina pectoris SNOMED: 83264221 (5) Hypertension ICD Codes: I10 - Essential (primary) hypertension SNOMED: 81225451 (6) Elevated troponin ICD Codes: R79.89 - Other specified abnormal findings of blood chemistry SNOMED: 177556735, 837573725 (7) Hematemesis ICD Codes: K92.0 - Hematemesis SNOMED: 0693343 (8) Melena ICD Codes: K92.1 - Melena SNOMED: 0916124, 123883114 (9) ACS (acute coronary syndrome) ICD Codes: I24.9 - Acute ischemic heart disease, unspecified SNOMED: 322794552 (10) Gastric ulcer ICD Codes: K25.9 - Gastric ulcer, unspecified as acute or chronic, without hemorrhage or perforation SNOMED: 810479732 Assessment/Plan stable H&H s/p EGD Gastric ulcer s/p hemostasis fu biopsy results ppi BID advance diet re check stool ob Subjective ROS Limited/Unobtainable: Yes Allergies: Coded Allergies: No Known Allergies (Unverified , 11/09/16) Subjective no event Objective Last 24 Hour Vital Signs Date Time Temp Pulse Resp B/P Pulse Ox O2 Delivery O2 Flow Rate FiO2 11/16/16 08:10 77 132/66 11/16/16 08:00 80 11/16/16 07:56 97.3 77 18 132/66 95 Nasal Cannula 2.0 11/16/16 06:28 110/62 11/16/16 04:16 98.3 77 19 104/65 99 Nasal Cannula 2.0 11/16/16 04:00 77 11/16/16 00:56 97.2 69 18 102/51 97 Room Air 11/16/16 00:00 88 11/15/16 21:08 76 115/75 11/15/16 20:00 97.4 67 21 97/57 96 Nasal Cannula 2.0 11/15/16 20:00 88 11/15/16 19:20 76 18 Nasal Cannula 2.0 28 11/15/16 19:20 Nasal Cannula 2.0 28 11/15/16 19:20 94 Nasal Cannula 2.0 28 11/15/16 19:10 115/75 11/15/16 16:52 115/75 11/15/16 16:12 Nasal Cannula 2.0 11/15/16 16:09 97.0 78 8 115/75 97 Nasal Cannula 2.0 11/15/16 16:00 83 11/15/16 13:00 Nasal Cannula 2.0 11/15/16 13:00 97.8 76 20 103/60 97 Nasal Cannula 2.0 11/15/16 12:00 74 11/15/16 12:00 110/52 11/15/16 11:45 97.2 76 20 110/52 98 Nasal Cannula 2.0 Intake and Output 11/15/16 11/16/16 19:00 07:00 Output Total 1100 ml Balance -1100 ml Hemodialysis UF 1100 ml # Voids 2 Laboratory Tests 11/15/16 11:25: Stool Occult Blood Positive 11/15/16 20:35: Troponin I 2.26*H 11/16/16 06:30: Troponin I 1.62*H, White Blood Count 7.5, Red Blood Count 2.81L, Hemoglobin 8.6L , Hematocrit 26.0L, Mean Corpuscular Volume 93, Mean Corpuscular Hemoglobin 30.4 , Mean Corpuscular Hemoglobin Concent 32.9, Red Cell Distribution Width 13.6, Platelet Count 140L, Mean Platelet Volume 8.3, Neutrophils (%) (Auto) 66.5, Lymphocytes (%) (Auto) 20.9, Monocytes (%) (Auto) 10.4H, Eosinophils (%) (Auto) 1.7, Basophils (%) (Auto) 0.4 Height (Feet): 5 Height (Inches): 0.00 Weight (Pounds): 167 General Appearance: alert EENT: normal ENT inspection Neck: supple Cardiovascular: normal rate Respiratory/Chest: decreased breath sounds Abdomen: normal bowel sounds, non tender, soft Extremities: non-tender DEBRA DASH Nov 16, 2016 10:32
[2016-11-16 11:25] VITALS: BP 129/66
[2016-11-16 16:00] VITALS: BP 126/63
--- NOTE | 2016-11-16 16:49 | General Progress Note ---
Assessment/Plan Status: stable Assessment/Plan Status: ESRD- ACS- with elevated troponin Severe Anemia- transfused GI bleed DM- HTN- Plan; no labs today Optimize cardiac status- echo ej fx 45% Transfusion as needed HD 11/15 next 11/17 monitor H&H and Renal parameters- per consultants per orders Subjective ROS Limited/Unobtainable: No Constitutional: Reports: malaise Allergies: Coded Allergies: No Known Allergies (Unverified , 11/09/16) Objective Last 24 Hour Vital Signs Date Time Temp Pulse Resp B/P Pulse Ox O2 Delivery O2 Flow Rate FiO2 11/16/16 12:00 75 11/16/16 11:37 129/66 11/16/16 11:25 97.1 73 18 129/66 100 Nasal Cannula 2.0 11/16/16 08:10 77 132/66 11/16/16 08:00 80 11/16/16 07:56 97.3 77 18 132/66 95 Nasal Cannula 2.0 11/16/16 06:28 110/62 11/16/16 04:16 98.3 77 19 104/65 99 Nasal Cannula 2.0 11/16/16 04:00 77 11/16/16 00:56 97.2 69 18 102/51 97 Room Air 11/16/16 00:00 88 11/15/16 21:08 76 115/75 11/15/16 20:00 97.4 67 21 97/57 96 Nasal Cannula 2.0 11/15/16 20:00 88 11/15/16 19:20 76 18 Nasal Cannula 2.0 28 11/15/16 19:20 Nasal Cannula 2.0 28 11/15/16 19:20 94 Nasal Cannula 2.0 28 11/15/16 19:10 115/75 11/15/16 16:52 115/75 Intake and Output 11/15/16 11/16/16 19:00 07:00 Output Total 1100 ml Balance -1100 ml Hemodialysis UF 1100 ml # Voids 2 Laboratory Tests 11/15/16 20:35: Troponin I 2.26*H 11/16/16 06:30: Troponin I 1.62*H, White Blood Count 7.5, Red Blood Count 2.81L, Hemoglobin 8.6L , Hematocrit 26.0L, Mean Corpuscular Volume 93, Mean Corpuscular Hemoglobin 30.4 , Mean Corpuscular Hemoglobin Concent 32.9, Red Cell Distribution Width 13.6, Platelet Count 140L, Mean Platelet Volume 8.3, Neutrophils (%) (Auto) 66.5, Lymphocytes (%) (Auto) 20.9, Monocytes (%) (Auto) 10.4H, Eosinophils (%) (Auto) 1.7, Basophils (%) (Auto) 0.4 11/16/16 15:30: Troponin I [Pending] Height (Feet): 5 Height (Inches): 0.00 Weight (Pounds): 167 General Appearance: no apparent distress Objective other PE not changed OMARI BLOCK Nov 16, 2016 16:49
[2016-11-16 16:52] LABS: TROPONIN I 2.43 ng/mL (<=0.30)
--- NOTE | 2016-11-16 17:27 | Internal Med Progress Note ---
Subjective Date of Service: Nov 16, 2016 Physician Name Enrike Knutson Attending Physician David Snyder MD Current Medications Medications (Trade) Dose Ordered Sig/Yarelis Route PRN Reason Start Time Stop Time Status Last Admin Dose Admin Acetaminophen (Tylenol) 650 mg Q4H PRN ORAL fever 11/14/16 11:45 12/14/16 11:44 11/15/16 16:52 Albuterol/ Ipratropium (DuoNeb 0.5-3(2.5)mg/3ml) 3 ml Q6H PRN HHN dyspnea 11/14/16 13:00 11/19/16 12:59 Aspirin (Ecotrin) 81 mg DAILY ORAL 11/15/16 20:00 12/15/16 19:59 11/16/16 08:09 Atorvastatin Calcium (Lipitor) 20 mg BEDTIME ORAL 11/14/16 21:00 12/14/16 20:59 11/15/16 21:07 Clonidine HCl (Catapres) 0.1 mg Q4H PRN ORAL For High Blood Pressure 11/14/16 11:45 12/14/16 11:44 Clopidogrel Bisulfate (Plavix) 75 mg DAILY ORAL 11/15/16 20:00 12/15/16 19:59 11/16/16 11:36 Dextrose (Dextrose 50%) STAT PRN IV Hypoglycemia 11/14/16 12:30 12/14/16 12:29 Insulin Aspart (NovoLOG) BEFORE MEALS AND HS SUBQ 11/14/16 11:30 12/14/16 11:29 11/16/16 16:30 Metoprolol Tartrate (Lopressor) 50 mg Q12HR ORAL 11/14/16 21:00 12/14/16 20:59 11/16/16 08:10 Morphine Sulfate (Morphine Sulfate) 1 mg Q4H PRN IVP For Pain 11/14/16 12:30 11/21/16 12:29 Nateglinide (Starlix) 120 mg TIAC ORAL 11/15/16 16:30 12/15/16 16:29 11/16/16 11:36 Nitroglycerin (Nitro-Bid) 0.5 inch TID@0600,1200,1800 TOPIC 11/16/16 06:00 12/16/16 05:59 11/16/16 11:37 Nitroglycerin (Ntg) 0.4 mg Q5M PRN SL Prn Chest Pain 11/14/16 11:35 12/14/16 11:34 11/15/16 19:10 Ondansetron HCl (Zofran) 4 mg Q6H PRN IVP Nausea & Vomiting 11/14/16 13:00 12/14/16 12:59 Pantoprazole (Protonix) 40 mg DAILY ORAL 11/15/16 09:00 12/15/16 08:59 11/16/16 08:09 Zolpidem Tartrate (Ambien) 5 mg HSPRN PRN ORAL Insomnia 11/14/16 15:45 12/14/16 15:44 11/15/16 22:40 Allergies: Coded Allergies: No Known Allergies (Unverified , 11/09/16) ROS Limited/Unobtainable: No Constitutional: Reports: no symptoms HEENT: Reports: no symptoms Cardiovascular: Reports: no symptoms Respiratory: Reports: no symptoms Gastrointestinal/Abdominal: Reports: no symptoms Genitourinary: Reports: no symptoms Neurologic/Psychiatric: Reports: no symptoms Subjective 56 YO f admitted with Chest pain. Now Hematemesis and GI bleed due to heparin. Also Non ST elevated myocardial infarction. Cover for Int Med-Dr Snyder. S/P endoscopy 11/14/16. Objective Last Vital Signs Date Time Temp Pulse Resp B/P Pulse Ox O2 Delivery O2 Flow Rate FiO2 11/16/16 16:00 97.3 73 18 126/63 Nasal Cannula 2.0 98 11/16/16 11:25 100 Laboratory Tests Test 11/15/16 20:35 11/16/16 06:30 11/16/16 15:30 Troponin I 2.26 ng/mL (<=0.30) *H 1.62 ng/mL (<=0.30) *H 2.43 ng/mL (<=0.30) *H White Blood Count 7.5 K/UL (4.8-10.8) Red Blood Count 2.81 M/UL (4.20-5.40) L Hemoglobin 8.6 G/DL (12.0-16.0) L Hematocrit 26.0 % (37.0-47.0) L Mean Corpuscular Volume 93 FL (80-99) Mean Corpuscular Hemoglobin 30.4 PG (27.0-31.0) Mean Corpuscular Hemoglobin Concent 32.9 G/DL (32.0-36.0) Red Cell Distribution Width 13.6 % (11.6-14.8) Platelet Count 140 K/UL (150-450) L Mean Platelet Volume 8.3 FL (6.5-10.1) Neutrophils (%) (Auto) 66.5 % (45.0-75.0) Lymphocytes (%) (Auto) 20.9 % (20.0-45.0) Monocytes (%) (Auto) 10.4 % (1.0-10.0) H Eosinophils (%) (Auto) 1.7 % (0.0-3.0) Basophils (%) (Auto) 0.4 % (0.0-2.0) Intake and Output 11/15/16 11/16/16 19:00 07:00 Output Total 1100 ml Balance -1100 ml Hemodialysis UF 1100 ml # Voids 2 Objective General Appearance: WD/WN, no apparent distress EENT: PERRL/EOMI, normal ENT inspection Neck: non-tender, normal alignment, supple, normal inspection Cardiovascular: normal peripheral pulses, regular rhythm, no gallop/murmur, no JVD Respiratory/Chest: chest wall non-tender, lungs clear, normal breath sounds, no respiratory distress, no accessory muscle use Abdomen: normal bowel sounds, non tender, soft, no organomegaly, no mass Neurologic: guide tour II-XII grossly normal, no motor/sensory deficits Skin: normal pigmentation, warm/dry Assessment/Plan Problem List: (1) Elevated troponin Assessment & Plan: see cardiology note. Will require cardiac cath (2) CAD (coronary artery disease) (3) Diabetes mellitus Assessment & Plan: Cont starlix and novolog sliding scale. (4) Hypertension Assessment & Plan: Cont metoprolol (5) Kidney transplant recipient (6) ESRD (end stage renal disease) on dialysis Assessment & Plan: See nephrology note. Next Hemodialysis 11/17/18. (7) ACS (acute coronary syndrome) (8) Hematemesis Assessment & Plan: Due to heparin; D/C heparin drip. See GI note. S/P Endoscopy 11/14/16 (9) Melena (10) Hypotensive episode Assessment & Plan: Due to GI bleed. (11) Anemia, blood loss Assessment & Plan: ? due to heparin? D/C heparin drip. S/P transfusion 4 Units PRBC total. (12) NSTEMI (non-ST elevated myocardial infarction) Assessment & Plan: Hold heparin due to GI bleed. See cardiology note. (13) Gastrointestinal hemorrhage Assessment & Plan: S/P Endoscopy 11/14/16. See GI note. Status: stable JAKYENRIKE Nov 16, 2016 17:27
--- NOTE | 2016-11-16 17:44 | Cardiology Progress Note ---
Assessment/Plan Assessment/Plan mi ?NSTEMI paced ekg gi bleed anemia esrd hs of tx now on hd cad s/p cabg 8 years ago anemia pacemaker implantation hx obesity trop peak 7.8 this am down to 6.4 needs cath on bb and statin ekg paced and uninterpreted resume asa and plavix now that recurrent cp this evening had clips placed by dr chaudhary during endsocopy yest he felt pt able to have antiplt if needed ntp ntg for now she seems to be having recurrent cp just now 11/15/201319;00 d/w primary cardiologic dr cobian earlier to day [facility] not accept pt [facility] is closed to transfer no bed per [facility] have placed name will need to transfer to cath facility have palced call to [facility] transfer center [facility] accepted but no bed i have contacted her pmd dr constance benítez who will try to see if able to arrange a bed at [facility] at thjsi moment cp free trop downand p agian is on ecotirn adn plavix and ifoff heparin due to recetn gi bleed diaslysis tomorrow Subjective Cardiovascular: Denies: chest pain, lightheadedness, palpitations Respiratory: Denies: shortness of breath Gastrointestinal/Abdominal: Denies: abdominal pain Objective Last 24 Hour Vital Signs Date Time Temp Pulse Resp B/P Pulse Ox O2 Delivery O2 Flow Rate FiO2 11/16/16 17:24 126/63 11/16/16 16:00 97.3 73 18 126/63 Nasal Cannula 2.0 98 11/16/16 12:00 75 11/16/16 11:37 129/66 11/16/16 11:25 97.1 73 18 129/66 100 Nasal Cannula 2.0 11/16/16 08:10 77 132/66 11/16/16 08:00 80 11/16/16 07:56 97.3 77 18 132/66 95 Nasal Cannula 2.0 11/16/16 06:28 110/62 11/16/16 04:16 98.3 77 19 104/65 99 Nasal Cannula 2.0 11/16/16 04:00 77 11/16/16 00:56 97.2 69 18 102/51 97 Room Air 11/16/16 00:00 88 11/15/16 21:08 76 115/75 11/15/16 20:00 97.4 67 21 97/57 96 Nasal Cannula 2.0 11/15/16 20:00 88 11/15/16 19:20 76 18 Nasal Cannula 2.0 28 11/15/16 19:20 Nasal Cannula 2.0 28 11/15/16 19:20 94 Nasal Cannula 2.0 28 11/15/16 19:10 115/75 General Appearance: no apparent distress, alert Neck: supple Cardiovascular: normal rate, regular rhythm Respiratory/Chest: lungs clear, normal breath sounds, no respiratory distress Abdomen: normal bowel sounds, non tender, soft Extremities: no swelling Intake and Output 11/15/16 11/16/16 19:00 07:00 Output Total 1100 ml Balance -1100 ml Hemodialysis UF 1100 ml # Voids 2 Laboratory Tests Test 11/15/16 20:35 11/16/16 06:30 11/16/16 15:30 Troponin I 2.26 ng/mL (<=0.30) *H 1.62 ng/mL (<=0.30) *H 2.43 ng/mL (<=0.30) *H White Blood Count 7.5 K/UL (4.8-10.8) Red Blood Count 2.81 M/UL (4.20-5.40) L Hemoglobin 8.6 G/DL (12.0-16.0) L Hematocrit 26.0 % (37.0-47.0) L Mean Corpuscular Volume 93 FL (80-99) Mean Corpuscular Hemoglobin 30.4 PG (27.0-31.0) Mean Corpuscular Hemoglobin Concent 32.9 G/DL (32.0-36.0) Red Cell Distribution Width 13.6 % (11.6-14.8) Platelet Count 140 K/UL (150-450) L Mean Platelet Volume 8.3 FL (6.5-10.1) Neutrophils (%) (Auto) 66.5 % (45.0-75.0) Lymphocytes (%) (Auto) 20.9 % (20.0-45.0) Monocytes (%) (Auto) 10.4 % (1.0-10.0) H Eosinophils (%) (Auto) 1.7 % (0.0-3.0) Basophils (%) (Auto) 0.4 % (0.0-2.0) DREW HUSAIN Nov 16, 2016 17:44
[2016-11-16 20:00] VITALS: BP 125/68
[2016-11-16] MEDS: Atorvastatin 20mg tab ORAL SCH (20:36)
[2016-11-16] MEDS: Zolpidem 5mg tab ORAL PRN (21:18)
--- NOTE | 2016-11-16 22:27 | Pulmonology Progress Note ---
Assessment/Plan Problems: (1) ACS (acute coronary syndrome) (2) CAD (coronary artery disease) (3) Diabetes mellitus (4) ESRD (end stage renal disease) on dialysis (5) Anemia Assessment/Plan awaiting cardiac cath, transfer on Aspirin and Plavix f/u cardiology recommendation sliding scale Subjective ROS Limited/Unobtainable: No Interval Events: recurrent episodes of chest pain Allergies: Coded Allergies: No Known Allergies (Unverified , 11/09/16) Objective Last 24 Hour Vital Signs Date Time Temp Pulse Resp B/P Pulse Ox O2 Delivery O2 Flow Rate FiO2 11/16/16 20:36 73 126/63 11/16/16 20:00 96.6 69 18 125/68 Nasal Cannula 2.0 98 11/16/16 17:24 126/63 11/16/16 16:00 97.3 73 18 126/63 Nasal Cannula 2.0 98 11/16/16 12:00 75 11/16/16 11:37 129/66 11/16/16 11:25 97.1 73 18 129/66 100 Nasal Cannula 2.0 11/16/16 08:10 77 132/66 11/16/16 08:00 80 11/16/16 07:56 97.3 77 18 132/66 95 Nasal Cannula 2.0 11/16/16 06:28 110/62 11/16/16 04:16 98.3 77 19 104/65 99 Nasal Cannula 2.0 11/16/16 04:00 77 11/16/16 00:56 97.2 69 18 102/51 97 Room Air 11/16/16 00:00 88 Intake and Output 11/15/16 11/16/16 19:00 07:00 Output Total 1100 ml Balance -1100 ml Hemodialysis UF 1100 ml # Voids 2 Objective General Appearance: WD/WN HEENT: normocephalic, atraumatic Respiratory/Chest: chest wall non-tender, lungs clear Breasts: no masses Cardiovascular: normal peripheral pulses Abdomen: normal bowel sounds, soft, non tender Genitourinary: normal external genitalia Extremities: no cyanosis Neurologic/Psychiatric: fagot heater II-XII grossly normal, no motor/sensory deficits Lymphatic: no neck adenopathy Laboratory Tests 11/16/16 06:30: White Blood Count 7.5, Red Blood Count 2.81L, Hemoglobin 8.6L, Hematocrit 26.0L , Mean Corpuscular Volume 93, Mean Corpuscular Hemoglobin 30.4, Mean Corpuscular Hemoglobin Concent 32.9, Red Cell Distribution Width 13.6, Platelet Count 140L, Mean Platelet Volume 8.3, Neutrophils (%) (Auto) 66.5, Lymphocytes ( %) (Auto) 20.9, Monocytes (%) (Auto) 10.4H, Eosinophils (%) (Auto) 1.7, Basophils (%) (Auto) 0.4, Troponin I 1.62*H 11/16/16 15:30: Troponin I 2.43*H Current Medications Medications (Trade) Dose Ordered Sig/Yarelis Route PRN Reason Start Time Stop Time Status Last Admin Dose Admin Acetaminophen (Tylenol) 650 mg Q4H PRN ORAL fever 11/14/16 11:45 12/14/16 11:44 11/15/16 16:52 Albuterol/ Ipratropium (DuoNeb 0.5-3(2.5)mg/3ml) 3 ml Q6H PRN HHN dyspnea 11/14/16 13:00 11/19/16 12:59 Aspirin (Ecotrin) 81 mg DAILY ORAL 11/15/16 20:00 12/15/16 19:59 11/16/16 08:09 Atorvastatin Calcium (Lipitor) 20 mg BEDTIME ORAL 11/14/16 21:00 12/14/16 20:59 11/16/16 20:36 Clonidine HCl (Catapres) 0.1 mg Q4H PRN ORAL For High Blood Pressure 11/14/16 11:45 12/14/16 11:44 Clopidogrel Bisulfate (Plavix) 75 mg DAILY ORAL 11/15/16 20:00 12/15/16 19:59 11/16/16 11:36 Dextrose (Dextrose 50%) STAT PRN IV Hypoglycemia 11/14/16 12:30 12/14/16 12:29 Insulin Aspart (NovoLOG) BEFORE MEALS AND HS SUBQ 11/14/16 11:30 12/14/16 11:29 11/16/16 20:10 Metoprolol Tartrate (Lopressor) 50 mg Q12HR ORAL 11/14/16 21:00 12/14/16 20:59 11/16/16 20:36 Morphine Sulfate (Morphine Sulfate) 1 mg Q4H PRN IVP For Pain 11/14/16 12:30 11/21/16 12:29 Nateglinide (Starlix) 120 mg TIAC ORAL 11/15/16 16:30 12/15/16 16:29 11/16/16 17:24 Nitroglycerin (Nitro-Bid) 0.5 inch TID@0600,1200,1800 TOPIC 11/16/16 06:00 12/16/16 05:59 11/16/16 17:24 Nitroglycerin (Ntg) 0.4 mg Q5M PRN SL Prn Chest Pain 11/14/16 11:35 12/14/16 11:34 11/15/16 19:10 Ondansetron HCl (Zofran) 4 mg Q6H PRN IVP Nausea & Vomiting 11/14/16 13:00 12/14/16 12:59 Pantoprazole (Protonix) 40 mg DAILY ORAL 11/15/16 09:00 12/15/16 08:59 11/16/16 08:09 Zolpidem Tartrate (Ambien) 5 mg HSPRN PRN ORAL Insomnia 11/14/16 15:45 12/14/16 15:44 11/16/16 21:18 EMILY LYONS Nov 16, 2016 22:27
[2016-11-17 00:38] VITALS: BP 125/54
[2016-11-17 04:17] VITALS: BP 129/63
[2016-11-17] MEDS: Nitroglycerin 2% oint pkt TOPIC SCH ×3 (06:15→18:06)
[2016-11-17] MEDS: NovoLOG Insulin Flexpen SUBQ SCH ×4 (06:17→21:43)
[2016-11-17] MEDS: Morphine Sulfate 2mg/ml Inj IVP PRN ×3 (06:25→18:57)
[2016-11-17 08:06] VITALS: BP 142/76
[2016-11-17] MEDS: Metoprolol 50mg tab ORAL SCH ×2 (08:59→21:38)
[2016-11-17] MEDS: Aspirin EC 81mg tab ORAL SCH (09:00)
--- NOTE | 2016-11-17 10:16 | General Progress Note ---
Assessment/Plan Problem List: (1) ESRD (end stage renal disease) on dialysis ICD Codes: N18.6 - End stage renal disease; Z99.2 - Dependence on renal dialysis SNOMED: 330002241 (2) Anemia ICD Codes: D64.9 - Anemia, unspecified SNOMED: 609974747 Qualifiers: Qualified Codes: D64.9 - Anemia, unspecified (3) Diabetes mellitus ICD Codes: E11.9 - Type 2 diabetes mellitus without complications SNOMED: 96820028 Qualifiers: (4) CAD (coronary artery disease) ICD Codes: I25.10 - Atherosclerotic heart disease of [place] coronary artery without angina pectoris SNOMED: 77216062 (5) Hypertension ICD Codes: I10 - Essential (primary) hypertension SNOMED: 44218304 (6) Elevated troponin ICD Codes: R79.89 - Other specified abnormal findings of blood chemistry SNOMED: 242102701, 777576206 (7) Hematemesis ICD Codes: K92.0 - Hematemesis SNOMED: 2922991 (8) Melena ICD Codes: K92.1 - Melena SNOMED: 3189431, 823987520 (9) ACS (acute coronary syndrome) ICD Codes: I24.9 - Acute ischemic heart disease, unspecified SNOMED: 792054778 (10) Gastric ulcer ICD Codes: K25.9 - Gastric ulcer, unspecified as acute or chronic, without hemorrhage or perforation SNOMED: 954143744 Assessment/Plan stable H&H s/p EGD Gastric ulcer s/p hemostasis fu biopsy results ppi BID re check stool ob Subjective ROS Limited/Unobtainable: Yes Allergies: Coded Allergies: No Known Allergies (Unverified , 11/09/16) Subjective no event Objective Last 24 Hour Vital Signs Date Time Temp Pulse Resp B/P Pulse Ox O2 Delivery O2 Flow Rate FiO2 11/17/16 08:59 77 142/76 11/17/16 08:35 Nasal Cannula 2.0 11/17/16 08:06 97.5 77 18 142/76 100 Nasal Cannula 2.0 11/17/16 06:15 129/63 11/17/16 04:17 98.7 79 19 129/63 95 Nasal Cannula 2.0 11/17/16 04:00 75 11/17/16 00:38 98.3 75 18 125/54 96 11/17/16 00:00 75 11/16/16 20:36 73 126/63 11/16/16 20:00 75 11/16/16 20:00 96.6 69 18 125/68 Nasal Cannula 2.0 98 11/16/16 17:24 126/63 11/16/16 16:00 97.3 73 18 126/63 Nasal Cannula 2.0 98 11/16/16 16:00 75 11/16/16 12:00 75 11/16/16 11:37 129/66 11/16/16 11:25 97.1 73 18 129/66 100 Nasal Cannula 2.0 Intake and Output 11/16/16 11/17/16 19:00 07:00 Intake Total 440 ml Balance 440 ml Intake Oral 440 ml # Voids 4 1 Laboratory Tests 11/16/16 15:30: Troponin I 2.43*H Height (Feet): 5 Height (Inches): 0.00 Weight (Pounds): 167 General Appearance: alert Neck: supple Cardiovascular: normal rate Respiratory/Chest: lungs clear Abdomen: normal bowel sounds, non tender, soft Extremities: non-tender DEBRA DASH Nov 17, 2016 10:16
[2016-11-17] MEDS ORDERED: Tubing Blood Filter IV ONE (10:24)
[2016-11-17] MEDS ORDERED: NS 275ml ONE (10:24)
[2016-11-17 11:18] LABS: BASOPHILS % (AUTO) 0.4 % (0.0-2.0); EOSINOPHILS % (AUTO) 1.4 % (0.0-3.0); LYMPHOCYTES % (AUTO) 12.9 % (20.0-45.0); MEAN CORPUSCULAR HEMOGLOBIN 30.4 PG (27.0-31.0); MEAN CORPUSCULAR HGB CONC 32.8 G/DL (32.0-36.0); MEAN CORPUSCULAR VOLUME 93 FL (80-99); MEAN PLATELET VOLUME 9.5 FL (6.5-10.1); MONOCYTES % (AUTO) 7.8 % (1.0-10.0); NEUTROPHILS % (AUTO) 77.5 % (45.0-75.0); PLATELET COUNT 161 K/UL (150-450); RED BLOOD COUNT 2.79 M/UL (4.20-5.40); WHITE BLOOD COUNT 10.2 K/UL (4.8-10.8)
[2016-11-17 11:28] VITALS: BP 143/87
--- NOTE | 2016-11-17 11:44 | General Progress Note ---
Assessment/Plan Status: stable Status Narrative On HD now - tolerating well Assessment/Plan Status: ESRD- ACS- with elevated troponin Severe Anemia- transfused GI bleed DM- HTN- Plan; no labs today Optimize cardiac status- echo ej fx 45% Transfusion as needed HD 11/17 in process monitor H&H and Renal parameters- per consultants per orders Subjective ROS Limited/Unobtainable: No Constitutional: Reports: malaise Allergies: Coded Allergies: No Known Allergies (Unverified , 11/09/16) Objective Last 24 Hour Vital Signs Date Time Temp Pulse Resp B/P Pulse Ox O2 Delivery O2 Flow Rate FiO2 11/17/16 11:35 143/87 11/17/16 11:28 96.8 86 18 143/87 99 Nasal Cannula 2.0 11/17/16 08:59 77 142/76 11/17/16 08:35 Nasal Cannula 2.0 11/17/16 08:06 97.5 77 18 142/76 100 Nasal Cannula 2.0 11/17/16 08:00 77 11/17/16 06:15 129/63 11/17/16 04:17 98.7 79 19 129/63 95 Nasal Cannula 2.0 11/17/16 04:00 75 11/17/16 00:38 98.3 75 18 125/54 96 11/17/16 00:00 75 11/16/16 20:36 73 126/63 11/16/16 20:00 75 11/16/16 20:00 96.6 69 18 125/68 Nasal Cannula 2.0 98 11/16/16 17:24 126/63 11/16/16 16:00 97.3 73 18 126/63 Nasal Cannula 2.0 98 11/16/16 16:00 75 11/16/16 12:00 75 Intake and Output 11/16/16 11/17/16 19:00 07:00 Intake Total 440 ml Balance 440 ml Intake Oral 440 ml # Voids 4 1 Laboratory Tests 11/16/16 15:30: Troponin I 2.43*H 11/17/16 11:00: White Blood Count 10.2, Red Blood Count 2.79L, Hemoglobin 8.5L, Hematocrit 25.9L , Mean Corpuscular Volume 93, Mean Corpuscular Hemoglobin 30.4, Mean Corpuscular Hemoglobin Concent 32.8, Red Cell Distribution Width 14.0, Platelet Count 161, Mean Platelet Volume 9.5, Neutrophils (%) (Auto) 77.5H, Lymphocytes ( %) (Auto) 12.9L, Monocytes (%) (Auto) 7.8, Eosinophils (%) (Auto) 1.4, Basophils (%) (Auto) 0.4, Sodium Level [Pending], Potassium Level [Pending], Chloride Level [Pending], Carbon Dioxide Level [Pending], Blood Urea Nitrogen [ Pending], Creatinine [Pending], Estimat Glomerular Filtration Rate [Pending], Glucose Level [Pending], Uric Acid [Pending], Calcium Level [Pending], Phosphorus Level [Pending], Magnesium Level [Pending], Total Bilirubin [Pending] , Gamma Glutamyl Transpeptidase [Pending], Aspartate Amino Transf (AST/SGOT) [ Pending], Alanine Aminotransferase (ALT/SGPT) [Pending], Alkaline Phosphatase [ Pending], C-Reactive Protein, Quantitative [Pending], Pro-B-Type Natriuretic Peptide [Pending], Total Protein [Pending], Albumin [Pending], Globulin [Pending ] Height (Feet): 5 Height (Inches): 0.00 Weight (Pounds): 168 General Appearance: no apparent distress Objective other PE not changed OMARI BLOCK Nov 17, 2016 11:44
[2016-11-17 11:47] LABS: ALBUMIN/GLOBULIN RATIO 1.4 (1.0-2.7); CALCIUM 8.9 mg/dL (8.6-10.2); CREATININE 2.8 mg/dL (0.5-0.9); CRP QUANT 2.4 mg/dL (< 0.5); GLOMERULAR FILTRATION RATE 17.4 mL/min (>60); MAGNESIUM 1.8 mg/dL (1.7-2.5); PHOSPHORUS 2.7 mg/dL (2.5-4.8); TOTAL PROTEIN 6.4 g/dL (6.6-8.7); URIC ACID 3.1 mg/dL (3.0-7.5)
[2016-11-17 12:08] LABS: BILIRUBIN,DIRECT 0.4 mg/dL (0.1-0.3)
[2016-11-17 16:00] VITALS: BP 129/59
--- NOTE | 2016-11-17 17:16 | Internal Med Progress Note ---
Subjective Date of Service: Nov 17, 2016 Physician Name Wilber Starkey Attending Physician David Snyder MD Current Medications Medications (Trade) Dose Ordered Sig/Yarelis Route PRN Reason Start Time Stop Time Status Last Admin Dose Admin Acetaminophen (Tylenol) 650 mg Q4H PRN ORAL fever 11/14/16 11:45 12/14/16 11:44 11/15/16 16:52 Albuterol/ Ipratropium (DuoNeb 0.5-3(2.5)mg/3ml) 3 ml Q6H PRN HHN dyspnea 11/14/16 13:00 11/19/16 12:59 Aspirin (Ecotrin) 81 mg DAILY ORAL 11/15/16 20:00 12/15/16 19:59 11/16/16 08:09 Atorvastatin Calcium (Lipitor) 20 mg BEDTIME ORAL 11/14/16 21:00 12/14/16 20:59 11/16/16 20:36 Clonidine HCl (Catapres) 0.1 mg Q4H PRN ORAL For High Blood Pressure 11/14/16 11:45 12/14/16 11:44 Clopidogrel Bisulfate (Plavix) 75 mg DAILY ORAL 11/15/16 20:00 12/15/16 19:59 11/16/16 11:36 Dextrose (Dextrose 50%) STAT PRN IV Hypoglycemia 11/14/16 12:30 12/14/16 12:29 Insulin Aspart (NovoLOG) BEFORE MEALS AND HS SUBQ 11/14/16 11:30 12/14/16 11:29 11/17/16 11:40 Metoprolol Tartrate (Lopressor) 50 mg Q12HR ORAL 11/14/16 21:00 12/14/16 20:59 11/16/16 20:36 Morphine Sulfate (Morphine Sulfate) 1 mg Q4H PRN IVP For Pain 11/14/16 12:30 11/21/16 12:29 11/17/16 11:00 Nateglinide (Starlix) 120 mg TIAC ORAL 11/15/16 16:30 12/15/16 16:29 11/17/16 11:35 Nitroglycerin (Nitro-Bid) 0.5 inch TID@0600,1200,1800 TOPIC 11/16/16 06:00 12/16/16 05:59 11/17/16 11:35 Nitroglycerin (Ntg) 0.4 mg Q5M PRN SL Prn Chest Pain 11/14/16 11:35 12/14/16 11:34 11/15/16 19:10 Ondansetron HCl (Zofran) 4 mg Q6H PRN IVP Nausea & Vomiting 11/14/16 13:00 12/14/16 12:59 Pantoprazole (Protonix) 40 mg DAILY ORAL 11/15/16 09:00 12/15/16 08:59 11/16/16 08:09 Zolpidem Tartrate (Ambien) 5 mg HSPRN PRN ORAL Insomnia 11/14/16 15:45 12/14/16 15:44 11/16/16 21:18 Allergies: Coded Allergies: No Known Allergies (Unverified , 11/09/16) ROS Limited/Unobtainable: No Constitutional: Reports: no symptoms HEENT: Reports: no symptoms Cardiovascular: Reports: no symptoms Respiratory: Reports: no symptoms Gastrointestinal/Abdominal: Reports: no symptoms Genitourinary: Reports: no symptoms Neurologic/Psychiatric: Reports: no symptoms Subjective 56 YO f admitted with Chest pain. Now Hematemesis and GI bleed due to heparin. Also Non ST elevated myocardial infarction. Cover for Int Med-Dr Snyder. S/P endoscopy 11/14/16. Await transfer to [facility] for cardiac cath. Objective Last Vital Signs Date Time Temp Pulse Resp B/P Pulse Ox O2 Delivery O2 Flow Rate FiO2 11/17/16 12:00 87 11/17/16 11:35 143/87 11/17/16 11:28 96.8 18 99 Nasal Cannula 2.0 11/16/16 20:00 98 Laboratory Tests Test 11/17/16 11:00 White Blood Count 10.2 K/UL (4.8-10.8) Red Blood Count 2.79 M/UL (4.20-5.40) L Hemoglobin 8.5 G/DL (12.0-16.0) L Hematocrit 25.9 % (37.0-47.0) L Mean Corpuscular Volume 93 FL (80-99) Mean Corpuscular Hemoglobin 30.4 PG (27.0-31.0) Mean Corpuscular Hemoglobin Concent 32.8 G/DL (32.0-36.0) Red Cell Distribution Width 14.0 % (11.6-14.8) Platelet Count 161 K/UL (150-450) Mean Platelet Volume 9.5 FL (6.5-10.1) Neutrophils (%) (Auto) 77.5 % (45.0-75.0) H Lymphocytes (%) (Auto) 12.9 % (20.0-45.0) L Monocytes (%) (Auto) 7.8 % (1.0-10.0) Eosinophils (%) (Auto) 1.4 % (0.0-3.0) Basophils (%) (Auto) 0.4 % (0.0-2.0) Sodium Level 142 mEQ/L (135-145) Potassium Level 3.0 mEQ/L (3.4-4.9) L Chloride Level 95 mEQ/L (98-107) L Carbon Dioxide Level 33 mEQ/L (20-30) H Anion Gap 14 (5-15) Blood Urea Nitrogen 17 mg/dL (7-23) Creatinine 2.8 mg/dL (0.5-0.9) H Estimat Glomerular Filtration Rate 17.4 mL/min (>60) Glucose Level 113 mg/dL (74-106) H Uric Acid 3.1 mg/dL (3.0-7.5) Calcium Level 8.9 mg/dL (8.6-10.2) Phosphorus Level 2.7 mg/dL (2.5-4.8) Magnesium Level 1.8 mg/dL (1.7-2.5) Total Bilirubin 1.2 mg/dL (0.0-1.2) Direct Bilirubin 0.4 mg/dL (0.1-0.3) H Gamma Glutamyl Transpeptidase 55 U/L (5-36) H Aspartate Amino Transf (AST/SGOT) 17 U/L (5-40) Alanine Aminotransferase (ALT/SGPT) 5 U/L (3-33) Alkaline Phosphatase 81 U/L (35-104) C-Reactive Protein, Quantitative 2.4 mg/dL (< 0.5) H Pro-B-Type Natriuretic Peptide 03036 pg/mL (0-125) H Total Protein 6.4 g/dL (6.6-8.7) L Albumin 3.8 g/dL (3.5-5.2) Globulin 2.6 g/dL Albumin/Globulin Ratio 1.4 (1.0-2.7) Intake and Output 11/16/16 11/17/16 19:00 07:00 Intake Total 440 ml Balance 440 ml Intake Oral 440 ml # Voids 4 1 Objective General Appearance: WD/WN, no apparent distress EENT: PERRL/EOMI, normal ENT inspection Neck: non-tender, normal alignment, supple, normal inspection Cardiovascular: normal peripheral pulses, regular rhythm, no gallop/murmur, no JVD Respiratory/Chest: chest wall non-tender, lungs clear, normal breath sounds, no respiratory distress, no accessory muscle use Abdomen: normal bowel sounds, non tender, soft, no organomegaly, no mass Neurologic: manager quantitative II-XII grossly normal, no motor/sensory deficits Skin: normal pigmentation, warm/dry Assessment/Plan Problem List: (1) Elevated troponin Assessment & Plan: See cardiology note. Will require cardiac cath-Await transfer to [facility]. (2) CAD (coronary artery disease) (3) Diabetes mellitus Assessment & Plan: Cont starlix and novolog sliding scale. (4) Hypertension Assessment & Plan: Cont metoprolol (5) Kidney transplant recipient (6) ESRD (end stage renal disease) on dialysis Assessment & Plan: See nephrology note. Hemodialysis today 11/17/18. (7) ACS (acute coronary syndrome) (8) Hematemesis Assessment & Plan: Due to heparin; D/C heparin drip. See GI note. S/P Endoscopy 11/14/16 (9) Melena (10) Hypotensive episode Assessment & Plan: Due to GI bleed. (11) Anemia, blood loss Assessment & Plan: ? due to heparin? D/C heparin drip. S/P transfusion 4 Units PRBC total. (12) NSTEMI (non-ST elevated myocardial infarction) Assessment & Plan: Hold heparin due to GI bleed. See cardiology note. (13) Gastrointestinal hemorrhage Assessment & Plan: S/P Endoscopy 11/14/16. See GI note. Status: progressing Assessment/Plan Await transfer to [facility] for cardiac cath. WILBER STARKEY Nov 17, 2016 17:16
--- NOTE | 2016-11-17 19:52 | Cardiology Progress Note ---
Assessment/Plan Assessment/Plan mi ?NSTEMI paced ekg gi bleed anemia esrd hs of tx now on hd cad s/p cabg 8 years ago anemia pacemaker implantation hx obesity trop peak 7.8 this am down to 6.4 needs cath on bb and statin ekg paced and uninterpreted resume asa and plavix now that recurrent cp this evening had clips placed by dr chaudhary during endsocopy yest he felt pt able to have antiplt if needed ntp ntg for now no cp since yest d/w primary cardiologic dr cobian earlier to day [facility] not accept pt [facility] closed to transfer no bed per [facility] have placed name will need to transfer to cath facility have palced call to [facility] accepted but no bed i have contacted her pmd dr constance benítez who will try to see if able to arrange a bed at [facility] at thjsi moment cp free trop downand p agnusrat is on ecotirn adn plavix and is off heparin due to recent gi bleed diaslysis today got a bed at [facility] will be transferred [facility] Subjective Cardiovascular: Denies: chest pain, lightheadedness Respiratory: Reports: shortness of breath Gastrointestinal/Abdominal: Denies: abdominal pain Genitourinary: Reports: burning Objective Last 24 Hour Vital Signs Date Time Temp Pulse Resp B/P Pulse Ox O2 Delivery O2 Flow Rate FiO2 11/17/16 18:06 129/59 11/17/16 16:00 97.7 82 19 129/59 Nasal Cannula 2.0 96 11/17/16 16:00 87 11/17/16 12:00 87 11/17/16 11:35 143/87 11/17/16 11:28 96.8 86 18 143/87 99 Nasal Cannula 2.0 11/17/16 10:45 Room Air 11/17/16 08:59 77 142/76 11/17/16 08:35 Nasal Cannula 2.0 11/17/16 08:08 Nasal Cannula 2.0 28 11/17/16 08:08 74 18 Nasal Cannula 2.0 28 11/17/16 08:08 96 Nasal Cannula 2.0 28 11/17/16 08:06 97.5 77 18 142/76 100 Nasal Cannula 2.0 11/17/16 08:00 77 11/17/16 06:15 129/63 11/17/16 04:17 98.7 79 19 129/63 95 Nasal Cannula 2.0 11/17/16 04:00 75 11/17/16 00:38 98.3 75 18 125/54 96 11/17/16 00:00 75 11/16/16 20:36 73 126/63 11/16/16 20:00 75 11/16/16 20:00 96.6 69 18 125/68 Nasal Cannula 2.0 98 General Appearance: no apparent distress, alert Neck: supple Cardiovascular: normal rate, regular rhythm Respiratory/Chest: crackles/rales - left base Abdomen: normal bowel sounds, non tender, soft Extremities: no swelling Intake and Output 11/16/16 11/17/16 19:00 07:00 Intake Total 440 ml Balance 440 ml Intake Oral 440 ml # Voids 4 1 Laboratory Tests Test 11/17/16 11:00 White Blood Count 10.2 K/UL (4.8-10.8) Red Blood Count 2.79 M/UL (4.20-5.40) L Hemoglobin 8.5 G/DL (12.0-16.0) L Hematocrit 25.9 % (37.0-47.0) L Mean Corpuscular Volume 93 FL (80-99) Mean Corpuscular Hemoglobin 30.4 PG (27.0-31.0) Mean Corpuscular Hemoglobin Concent 32.8 G/DL (32.0-36.0) Red Cell Distribution Width 14.0 % (11.6-14.8) Platelet Count 161 K/UL (150-450) Mean Platelet Volume 9.5 FL (6.5-10.1) Neutrophils (%) (Auto) 77.5 % (45.0-75.0) H Lymphocytes (%) (Auto) 12.9 % (20.0-45.0) L Monocytes (%) (Auto) 7.8 % (1.0-10.0) Eosinophils (%) (Auto) 1.4 % (0.0-3.0) Basophils (%) (Auto) 0.4 % (0.0-2.0) Sodium Level 142 mEQ/L (135-145) Potassium Level 3.0 mEQ/L (3.4-4.9) L Chloride Level 95 mEQ/L (98-107) L Carbon Dioxide Level 33 mEQ/L (20-30) H Anion Gap 14 (5-15) Blood Urea Nitrogen 17 mg/dL (7-23) Creatinine 2.8 mg/dL (0.5-0.9) H Estimat Glomerular Filtration Rate 17.4 mL/min (>60) Glucose Level 113 mg/dL (74-106) H Uric Acid 3.1 mg/dL (3.0-7.5) Calcium Level 8.9 mg/dL (8.6-10.2) Phosphorus Level 2.7 mg/dL (2.5-4.8) Magnesium Level 1.8 mg/dL (1.7-2.5) Total Bilirubin 1.2 mg/dL (0.0-1.2) Direct Bilirubin 0.4 mg/dL (0.1-0.3) H Gamma Glutamyl Transpeptidase 55 U/L (5-36) H Aspartate Amino Transf (AST/SGOT) 17 U/L (5-40) Alanine Aminotransferase (ALT/SGPT) 5 U/L (3-33) Alkaline Phosphatase 81 U/L (35-104) C-Reactive Protein, Quantitative 2.4 mg/dL (< 0.5) H Pro-B-Type Natriuretic Peptide 87741 pg/mL (0-125) H Total Protein 6.4 g/dL (6.6-8.7) L Albumin 3.8 g/dL (3.5-5.2) Globulin 2.6 g/dL Albumin/Globulin Ratio 1.4 (1.0-2.7) DREW HUSAIN Nov 17, 2016 19:52
[2016-11-17 20:00] VITALS: BP 124/57
[2016-11-17] MEDS: Atorvastatin 20mg tab ORAL SCH (21:37)
--- NOTE | 2016-11-17 22:43 | Pulmonology Progress Note ---
Assessment/Plan Problems: (1) ACS (acute coronary syndrome) (2) CAD (coronary artery disease) (3) Diabetes mellitus (4) ESRD (end stage renal disease) on dialysis (5) Anemia Assessment/Plan awaiting cardiac cath, transfer on Aspirin and Plavix f/u cardiology recommendation sliding scale Subjective Allergies: Coded Allergies: No Known Allergies (Unverified , 11/09/16) Objective Last 24 Hour Vital Signs Date Time Temp Pulse Resp B/P Pulse Ox O2 Delivery O2 Flow Rate FiO2 11/17/16 21:38 76 124/57 11/17/16 20:07 Nasal Cannula 2.0 28 11/17/16 20:07 77 18 Nasal Cannula 2.0 28 11/17/16 20:07 96 Nasal Cannula 2.0 28 11/17/16 20:00 97.4 76 18 124/57 Nasal Cannula 2.0 99 11/17/16 18:06 129/59 11/17/16 16:00 97.7 82 19 129/59 Nasal Cannula 2.0 96 11/17/16 16:00 87 11/17/16 12:00 87 11/17/16 11:35 143/87 11/17/16 11:28 96.8 86 18 143/87 99 Nasal Cannula 2.0 11/17/16 10:45 Room Air 11/17/16 08:59 77 142/76 11/17/16 08:35 Nasal Cannula 2.0 11/17/16 08:08 Nasal Cannula 2.0 28 11/17/16 08:08 74 18 Nasal Cannula 2.0 28 11/17/16 08:08 96 Nasal Cannula 2.0 28 11/17/16 08:06 97.5 77 18 142/76 100 Nasal Cannula 2.0 11/17/16 08:00 77 11/17/16 06:15 129/63 11/17/16 04:17 98.7 79 19 129/63 95 Nasal Cannula 2.0 11/17/16 04:00 75 11/17/16 00:38 98.3 75 18 125/54 96 11/17/16 00:00 75 Intake and Output 11/16/16 11/17/16 19:00 07:00 Intake Total 440 ml Balance 440 ml Intake Oral 440 ml # Voids 4 1 Objective General Appearance: WD/WN HEENT: normocephalic, atraumatic Respiratory/Chest: chest wall non-tender, lungs clear Breasts: no masses Cardiovascular: normal peripheral pulses Abdomen: normal bowel sounds, soft, non tender Genitourinary: normal external genitalia Extremities: no cyanosis Neurologic/Psychiatric: plasma processor II-XII grossly normal, no motor/sensory deficits Lymphatic: no neck adenopathy Laboratory Tests 11/17/16 11:00: White Blood Count 10.2, Red Blood Count 2.79L, Hemoglobin 8.5L, Hematocrit 25.9L , Mean Corpuscular Volume 93, Mean Corpuscular Hemoglobin 30.4, Mean Corpuscular Hemoglobin Concent 32.8, Red Cell Distribution Width 14.0, Platelet Count 161, Mean Platelet Volume 9.5, Neutrophils (%) (Auto) 77.5H, Lymphocytes ( %) (Auto) 12.9L, Monocytes (%) (Auto) 7.8, Eosinophils (%) (Auto) 1.4, Basophils (%) (Auto) 0.4, Sodium Level 142, Potassium Level 3.0L, Chloride Level 95L, Carbon Dioxide Level 33H, Anion Gap 14, Blood Urea Nitrogen 17, Creatinine 2.8H, Estimat Glomerular Filtration Rate 17.4, Glucose Level 113H, Uric Acid 3.1, Calcium Level 8.9, Phosphorus Level 2.7, Magnesium Level 1.8, Total Bilirubin 1.2, Direct Bilirubin 0.4H, Gamma Glutamyl Transpeptidase 55H, Aspartate Amino Transf (AST/SGOT) 17, Alanine Aminotransferase (ALT/SGPT) 5, Alkaline Phosphatase 81, C-Reactive Protein, Quantitative 2.4H, Pro-B-Type Natriuretic Peptide 81958Z, Total Protein 6.4L, Albumin 3.8, Globulin 2.6, Albumin/Globulin Ratio 1.4 Current Medications Medications (Trade) Dose Ordered Sig/Yarelis Route PRN Reason Start Time Stop Time Status Last Admin Dose Admin Acetaminophen (Tylenol) 650 mg Q4H PRN ORAL fever 11/14/16 11:45 12/14/16 11:44 11/15/16 16:52 Albuterol/ Ipratropium (DuoNeb 0.5-3(2.5)mg/3ml) 3 ml Q6H PRN HHN dyspnea 11/14/16 13:00 11/19/16 12:59 Aspirin (Ecotrin) 81 mg DAILY ORAL 11/15/16 20:00 12/15/16 19:59 11/16/16 08:09 Atorvastatin Calcium (Lipitor) 20 mg BEDTIME ORAL 11/14/16 21:00 12/14/16 20:59 11/17/16 21:37 Clonidine HCl (Catapres) 0.1 mg Q4H PRN ORAL For High Blood Pressure 11/14/16 11:45 12/14/16 11:44 Clopidogrel Bisulfate (Plavix) 75 mg DAILY ORAL 11/15/16 20:00 12/15/16 19:59 11/16/16 11:36 Dextrose (Dextrose 50%) STAT PRN IV Hypoglycemia 11/14/16 12:30 12/14/16 12:29 Insulin Aspart (NovoLOG) BEFORE MEALS AND HS SUBQ 11/14/16 11:30 12/14/16 11:29 11/17/16 21:43 Metoprolol Tartrate (Lopressor) 50 mg Q12HR ORAL 11/14/16 21:00 12/14/16 20:59 11/17/16 21:38 Morphine Sulfate (Morphine Sulfate) 1 mg Q4H PRN IVP For Pain 11/14/16 12:30 11/21/16 12:29 11/17/16 18:57 Nateglinide (Starlix) 120 mg TIAC ORAL 11/15/16 16:30 12/15/16 16:29 11/17/16 18:05 Nitroglycerin (Nitro-Bid) 0.5 inch TID@0600,1200,1800 TOPIC 11/16/16 06:00 12/16/16 05:59 11/17/16 18:06 Nitroglycerin (Ntg) 0.4 mg Q5M PRN SL Prn Chest Pain 11/14/16 11:35 12/14/16 11:34 11/15/16 19:10 Ondansetron HCl (Zofran) 4 mg Q6H PRN IVP Nausea & Vomiting 11/14/16 13:00 12/14/16 12:59 Pantoprazole (Protonix) 40 mg DAILY ORAL 11/15/16 09:00 12/15/16 08:59 11/16/16 08:09 Zolpidem Tartrate (Ambien) 5 mg HSPRN PRN ORAL Insomnia 11/14/16 15:45 12/14/16 15:44 11/16/16 21:18 EMILY LYONS Nov 17, 2016 22:43
[2016-11-18] VITALS: BP 125/59
--- NOTE | 2016-11-20 08:02 | Discharge Summary ---
Discharge Summary Hospital Course Date of Admission Nov 09, 2016 at 19:33 Date of Discharge Nov 18, 2016 at 00:45 Admitting Diagnosis CHEST PAIN /ACS TERENCE Esteban is a 56 year old female who was admitted on Nov 09, 2016 at 19:33 for Chest Pain, Acute Coronary Syndrome Hospital Course dc summary #[id number] Discharge Medications New Medications: Atorvastatin Calcium* (Lipitor*) 20 Mg Tablet 20 MG ORAL BEDTIME, #30 TAB Metoprolol Tartrate* (Metoprolol Tartrate*) 50 Mg Tablet 50 MG ORAL EVERY 12 HOURS, #60 TAB 0 Refills Continued Medications: Aspirin* (Aspirin*) 81 Mg Tab.chew 81 MG ORAL DAILY, TAB Cinacalcet* (Sensipar*) 30 Mg Tablet 15 MG ORAL DAILY, TAB Clopidogrel Bisulfate* (Plavix*) 75 Mg Tablet 75 MG ORAL DAILY, TAB Esomeprazole Magnesium (Nexium) 40 Mg Capsule.dr 40 MG ORAL DAILY, CAP Insulin Lispro (Humalog) 100 Unit/1 Ml Cartridge 0 SUBQ, #1 UNITS 0 Refills Nateglinide (Starlix) 120 Mg Tablet 120 MG ORAL THREE TIMES A DAY, TAB Pregabalin* (Lyrica*) 75 Mg Capsule 75 MG ORAL BID, CAP Sevelamer Carbonate (Renvela) 800 Mg Tablet 1600 MG ORAL THREE TIMES A DAY, TAB Discharge Discharge Disposition Patient was discharged to [facility] for cardiac cath Discharge Diagnoses: Juan Alberto (Gene)Hawa NP Nov 20, 2016 08:02
--- NOTE | 2016-11-20 22:39 | Discharge Summary 2 SIG ---
DATE OF ADMISSION: 11/09/2016 DATE OF DISCHARGE: 11/18/2016 REASON FOR ADMISSION: This is a 56-year-old female, came to emergency room complaining of chest pain, which started during dialysis. The patient was unable to complete dialysis. The patient was described as midsternal pressure-like 7/10 nonradiating. No chest pain. The patient was given aspirin. No nitroglycerin since blood pressure was low. Intravenous bolus was given by paramedics. The patient denied fever or chills. The patient has a history of diabetes, hypertension, end-stage renal disease, on hemodialysis, history of coronary artery disease, status post CABG eight years ago and pacemaker. First troponin was negative. EKG revealed paced rhythm. Chest x-ray revealed no acute cardiopulmonary disease. Blood pressure was 88/59. The patient was diagnosed with acute coronary syndrome, end-stage renal disease, and anemia. ADMITTING DIAGNOSES: 1. Acute coronary syndrome. 2. End-stage renal disease. 3. Anemia. HOSPITAL STAY: The patient was admitted on telemetry floor. Cardiology consult and pulmonary consult were requested. Next day, the patient had elevated troponin of 3.74. The patient was started on heparin drip . Aspirin , Plavix , beta rosio and statin. Hemodialysis was done as per heating technician. On 11/13/2016 troponin was up to 7.88 and then started to trend down, but still elevated on 11/16/2016 -2.43. On the 11/12/2016, the patient developed upper gastrointestinal bleeding with vomiting blood and had melena. Hemoglobin dropped to 6.9 and hematocrit to 20.1. The patient was hypotensive with blood pressure 76/30. The patient was transferred to ICU. Heparin drip, aspirin and Plavix were all placed on hold. Gastrointestinal consult was requested. Subsequently, the patient undergone on 11/14/2016 upper endoscopy with biopsy and hemostasis. The finding of upper endoscopy revealed diffuse gastritis as well as a small gastric ulcer in the body of the stomach, which could have been a source of bleeding as per GI. Hemostasis was done. No clots. No visible bleeding. No further bleeding. Gastrointestinal specialist cleared the patient to restart on aspirin and Plavix. Nitroglycerin was started on as needed basis. Internship closely followed. The patient needed transfer to cardiac lab for cardiac catheterization. Placement was found in [facility] , and the patient was transferred on 11/18/2016 to [facility] for cardiac catheterization. Patient with a history of hypertension, however, the patient was hypotensive. All antihypertensive medications were on hold. Blood sugar was managed with the sliding scale with insulin and was stable. [employer] Specialist followed up for hemodialysis. Renal parameters and electrolytes were closely monitored. After episode of GI bleeding, the patient required transfusion. Afterwards, hemoglobin and hematocrit were on the baseline and stable. Supplemental oxygen and pulmonary toilet provided as needed. Echocardiogram revealed ejection fraction of 45% to 50%, right ventricular systolic pressure of 45 consistent with moderate pulmonary hypertension. Lipid panel with elevated triglycerides. The patient was counseled on cardiac low fat diet. After stabilization, it was recommended to add TriCor to the statin. Noted elevated TSH. Free T4 and T3 were stable. Recommend to recheck thyroid panel in one month. The patient was started on GI prophylaxis. The patient was stable for transfer. DISCHARGE DIAGNOSES: 1. NSTEMI 2. Upper gastrointestinal bleeding, 3. Diffuse gastritis and 4. Gastric ulcer, status post hemostasis. 5. Anemia status post blood transfusion. 6. End-stage renal disease, on hemodialysis. 7. Coronary artery disease with history of coronary artery bypass graft eight years ago. 8. Pacemaker. 9. Obesity. 10. Diabetes mellitus. 11. Moderate pulmonary hypertension. 12. Moderate tricuspid regurgitation. 13. History of kidney transplant. 14. Anemia of chronic disease. DISCHARGE MEDICATIONS: See medication reconciliation list. DISCHARGE INSTRUCTIONS: The patient was transferred for cardiac catheterization. Further follow up with the bung sewer doctor at the admitting facility. David Snyder M.D. Hawa Avendano (Vanchtein) N.PPatric DR: DANO JOB#: [id number] CC: KIMBERLEE
--- NOTE | 2016-12-15 12:32 | Diagnostic Imaging Report ---
Indication: Chest Pain Comparison: 11/09/16 A single view chest radiograph was obtained. Findings: No definite infiltrate or pulmonary vascular congestion identified. Sternotomy and pacemaker noted. The heart is enlarged. The aorta is mildly enlarged consistent with atherosclerotic vascular disease. The bones are osteopenic. Impression: No acute disease
== END 2016-11-18 00:45 | disposition short-term general hospital (02) | DRG 302 ==
LOC: EDBD 06:44 → EMR 07:27 → EDBEDREQ 08:11 → 2E 19:33 → ICU 11-12 07:46 → 2E 11-14 12:28
PROC: 30233N1 Transfusion of Nonautologous Red Blood Cells into Peripheral Vein, Percutaneous Approach (ICD-10-PCS; principal; 2016-11-09)
PROC: 5A1D60Z (ICD-10-PCS; 2016-11-11)
PROC: 0DB68ZX Excision of Stomach, Via Natural or Artificial Opening Endoscopic, Diagnostic (ICD-10-PCS; 2016-11-14)
PROC: 0W3P8ZZ Control Bleeding in Gastrointestinal Tract, Via Natural or Artificial Opening Endoscopic (ICD-10-PCS; 2016-11-14)
DX: I25.119 Atherosclerotic heart disease of native coronary artery with unspecified angina pectoris (principal); N18.6 End stage renal disease; K25.4 Chronic or unspecified gastric ulcer with hemorrhage; I95.9 Hypotension, unspecified; I12.0 Hypertensive chronic kidney disease with stage 5 chronic kidney disease or end stage renal disease; I27.2 Other secondary pulmonary hypertension; Z94.0 Kidney transplant status; I24.9 Acute ischemic heart disease, unspecified; D50.0 Iron deficiency anemia secondary to blood loss (chronic); E11.9 Type 2 diabetes mellitus without complications; Z99.2 Dependence on renal dialysis; Z95.0 Presence of cardiac pacemaker; Z95.1 Presence of aortocoronary bypass graft; D63.1 Anemia in chronic kidney disease; Z79.4 Long term (current) use of insulin; Z79.02 Long term (current) use of antithrombotics/antiplatelets; K29.70 Gastritis, unspecified, without bleeding; E66.9 Obesity, unspecified; I07.1 Rheumatic tricuspid insufficiency; I44.7 Left bundle-branch block, unspecified
CPT/HCPCS: 36415; 71010; 80048; 80053; 80061; 82248; 82270; 82550; 82553; 82607; 82728; 82746; 82962; 82977; 83036; 83540; 83550; 83735; 83880; 84100; 84439; 84443; 84481; 84484; 84550; 85007; 85025; 85610; 85730; 86140; 86850; 86900; 86901; 86920; 87081; 93005; 93306; 93970; 94003; 94150; 94664; 94760; J1815; J2405